=== PATIENT | male | born 1955 | race Caucasian/White ===

== ENCOUNTER 2017-06-03 18:38 | Inpatient (IN) | payer MEDICAID ==
[~2017-06-03] VITALS: Ht 168.9 cm; Wt 83.0 kg
[~2017-06-03 18:38] MED LIST: ACHD5005 PO; ASP81TEC PO; ATOR10TA66 PO; CLPD75T PO; ENAL2.5T PO; ENAL5TAB PO; FISH1CAP15 PO; IBP800T PO; METO-333 PO; OMEG1CAP51 PO; PNT40TEC PO; POLY119P PO; TICA90TA PO
--- OUTSIDE RECORDS SUMMARY | 2017-06-03 18:44 | XMS REPORT | Continuity of Care Document ---
Author Author [facility] Organization [facility] Address Unknown Phone Unavailable Allergies Active Description Code Type Severity Reaction Onset Reported/Identified Relationship to Patient Clinical Status Yes No Known Drug Allergies [id number] Drug Allergy Unknown N/ A 01/22/2011 Medications Problems Date Dx Coded Attending Type Code Diagnosis Diagnosed By 01/22/2011 Ot 816.01 FX MID/PRX PHAL, HAND-CL 01/22/2011 Ot 959.5 FINGER INJURY NOS 01/22/2011 Ot E000.8 OTHER EXTERNAL CAUSE STATUS 01/22/2011 Ot E849.0 ACCIDENT IN HOME 01/22/2011 Ot E918 CAUGHT BETWEEN OBJECTS 05/07/2012 Ot 305.00 ALCOHOL ABUSE-UNSPEC 05/07/2012 Ot 305.1 TOBACCO USE DISORDER 05/07/2012 Ot 410.71 AC MYOCARDIAL INFARCT,SUBENDO INFARCT,IN 05/07/2012 Ot 414.01 CORONARY ATHEROSCLEROSIS OF [place] CORON 05/07/2012 Ot 420.90 ACUTE PERICARDITIS NOS 05/07/2012 Ot 428.0 CONGESTIVE HEART FAILURE NOS 05/07/2012 Ot 428.21 ACUTE SYSTOLIC HEART FAILURE 05/07/2012 Ot 518.82 OTHER PULMONARY INSUFFICIENCY, NEC 05/07/2012 Ot 593.9 RENAL URETERAL DIS NOS 05/07/2012 Ot 789.06 ABDOMINAL PAIN, EPIGASTRIC 05/07/2012 Ot 790.5 ABN SERUM ENZY LEVEL NEC 05/07/2012 Ot V17.49 FAMILY HISTORY OF OTHER CARDIOVASCULAR D 09/18/2012 Ot 564.00 UNSPEC CONSTIPATION 09/18/2012 Ot 789.00 ABDOMINAL PAIN, UNSPECIFIED SITE 07/29/2014 MEAGAN JACKSON MD Ot 272.4 07/29/2014 MEAGAN JACKSON MD Ot 397.0 07/29/2014 MEAGAN JACKSON MD Ot 401.9 07/29/2014 MEAGAN JACKSON MD Ot 414.00 07/29/2014 MEAGAN JACKSON MD Ot 424.0 07/29/2014 MEAGAN JACKSON MD Ot 428.0 07/29/2014 MEAGAN JACKSON MD Ot 429.3 08/20/2014 MEAGAN JACKSON MD Ot 272.4 08/20/2014 MEAGAN JACKSON MD Ot 397.0 08/20/2014 MEAGAN JCAKSON MD Ot 401.9 08/20/2014 MEAGAN JACKSON MD Ot 414.00 08/20/2014 MEAGAN JACKSON MD Ot 424.0 08/20/2014 MEAGAN JACKSON MD Ot 428.0 08/20/2014 MEAGAN JACKSON MD Ot 429.3 02/02/2015 JENNIE LOPEZ Ot 272.4 02/02/2015 JENNIE LOPEZ Ot 401.9 02/02/2015 JENNIE LOPEZ Ot 414.00 02/02/2015 JENNIE LOPEZ Ot 428.0 02/02/2015 JENNIE LOPEZ Ot 786.50 09/02/2015 MEAGAN JACKSON MD Ot B19.20 UNSPECIFIED VIRAL HEPATITIS C WITHOUT HE 09/02/2015 MEAGAN JACKSON MD Ot E78.5 HYPERLIPIDEMIA, UNSPECIFIED 09/02/2015 MEAGAN JACKSON MD Ot F17.290 NICOTINE DEPENDENCE, OTHER TOBACCO PRODU 09/02/2015 MEAGAN JACKSON MD Ot I10 ESSENTIAL (PRIMARY) HYPERTENSION 09/02/2015 MEAGAN JACKSON MD Ot I25.10 ATHSCL HEART DISEASE OF [place] CORONARY 09/02/2015 MEAGAN JACKSON MD Ot I25.2 OLD MYOCARDIAL INFARCTION 09/02/2015 MEAGAN JACKSON MD Ot I27.2 OTHER SECONDARY PULMONARY HYPERTENSION 09/02/2015 MEAGAN JACKSON MD Ot I50.9 HEART FAILURE, UNSPECIFIED 09/02/2015 MEAGAN JACKSON MD Ot R94.39 ABNORMAL RESULT OF OTHER CARDIOVASCULAR 09/02/2015 MEAGAN JACKSON MD Ot Z79.899 OTHER SENIOR CARE (CURRENT) DRUG THERAPY 09/02/2015 MEAGAN JACKSON MD Ot Z95.5 PRESENCE OF CORONARY ANGIOPLASTY IMPLANT 09/03/2015 MEAGAN JACKSON MD Ot E78.2 09/03/2015 MEAGAN JACKSON MD Ot I10 09/03/2015 MEAGAN JACKSON MD Ot I25.10 09/03/2015 MEAGAN JACKSON MD Ot I50.22 09/03/2015 MEAGAN JACKSON MD Ot R07.89 09/08/2015 MEAGAN JACKSON MD Ot B19.20 09/08/2015 MEAGAN JACKSON MD Ot E78.5 09/08/2015 MEAGAN JACKSON MD Ot F17.290 09/08/2015 MEAGAN JACKSON MD Ot I10 09/08/2015 MEAGAN JACKSON MD Ot I25.10 09/08/2015 MEAGAN JACKSON MD Ot I25.2 09/08/2015 MEAGAN JACKSON MD Ot I27.2 09/08/2015 MEAGAN JACKSON MD Ot I50.9 09/08/2015 MEAGAN JACKSON MD Ot R94.39 09/08/2015 MEAGAN JACKSON MD Ot Z79.899 09/08/2015 MEAGAN JACKSON MD Ot Z95.5 09/28/2015 Ot B19.20 09/28/2015 Ot I25.10 10/08/2015 Ot B19.20 UNSPECIFIED VIRAL HEPATITIS C WITHOUT HE 10/08/2015 Ot I25.10 ATHSCL HEART DISEASE OF [place] CORONARY 10/14/2015 MAYNOR MATHIS MD Ot J44.9 CHRONIC OBSTRUCTIVE PULMONARY DISEASE, U 10/26/2015 MAYNOR MATHIS MD Ot J44.9 CHRONIC OBSTRUCTIVE PULMONARY DISEASE, U 04/06/2016 JENNIE LOPEZ Ot E78.5 HYPERLIPIDEMIA, UNSPECIFIED 04/07/2016 Ot 414.00 CORON ATHEROSCLER NOS TYPE VESSEL, NATIV 04/07/2016 Ot 423.9 PERICARDIAL DISEASE NOS 04/07/2016 Ot 070.70 UNSPECIFIED VIRAL HEPATITIS C WITHOUT HE 04/07/2016 Ot 790.5 ABN SERUM ENZY LEVEL NEC 04/07/2016 MEAGAN JACKSON MD Ot 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 TRICUSPID VALVE DISEASE 04/07/2016 MEAGAN JACKSON MD Ot 401.9 HYPERTENSION NOS 04/07/2016 MEAGAN JACKSON MD Ot 414.00 CORON ATHEROSCLER NOS TYPE VESSEL, NATIV 04/07/2016 MEAGAN JACKSON MD Ot 424.0 MITRAL VALVE DISORDER 04/07/2016 MEAGAN JACKSON MD Ot 428.0 CONGESTIVE HEART FAILURE NOS 04/07/2016 MEAGAN JACKSON MD Ot 429.3 CARDIOMEGALY 04/07/2016 MEAGAN JACKSON MD Ot 401.9 HYPERTENSION NOS 04/07/2016 MEAGAN JACKSON MD Ot 414.01 CORONARY ATHEROSCLEROSIS OF [place] CORON 04/07/2016 MEAGAN JACKSON MD Ot 428.0 CONGESTIVE HEART FAILURE NOS 04/07/2016 LETHA LORENZO MD Ot 070.54 CHRONIC HEPATITIS C W/O HEPATIC COMA 04/07/2016 LETHA LORENZO MD, Ot V58.69 OTH MED,LT,CURRENT USE 04/07/2016 KELSEY AMBROSE WELDING MACHINE OPERATOR ELECTROSLAG Ot 272.4 HYPERLIPIDEMIA NEC/NOS 04/07/2016 KELSEY AMBROSE WELDING MACHINE OPERATOR ELECTROSLAG Ot 401.9 HYPERTENSION NOS 04/07/2016 KELSEY AMBROSE WELDING MACHINE OPERATOR ELECTROSLAG Ot 414.00 CORON ATHEROSCLER NOS TYPE VESSEL, NATIV 04/07/2016 LETHA LORENZO MD Ot 070.54 CHRONIC HEPATITIS C W/O HEPATIC COMA 04/07/2016 LETHA LORENZO MD Ot V58.69 OTH MED,LT,CURRENT USE 04/07/2016 LETHA LORENZO MD Ot 070.54 CHRONIC HEPATITIS C W/O HEPATIC COMA 04/07/2016 LETHA LORENZO MD Ot V58.69 OTH MED,LT,CURRENT USE 04/07/2016 LETHA LORENZO MD Ot 070.70 UNSPECIFIED VIRAL HEPATITIS C WITHOUT HE 04/07/2016 LETHA LORENZO MD Ot 070.54 CHRONIC HEPATITIS C W/O HEPATIC COMA 04/07/2016 LETHA LORENZO MD Ot V58.69 OTH MED,LT,CURRENT USE 04/07/2016 LETHA LORENZO MD Ot 070.54 CHRONIC HEPATITIS C W/O HEPATIC COMA 04/07/2016 LETHA LORENZO MD, Ot V58.69 OTH MED,LT,CURRENT USE 04/07/2016 LETHA LORENZO MD Ot V58.83 ENCOUNTER FOR THERAPEUTIC DRUG MONITORIN 04/07/2016 LETHA LORENZO MD Ot 070.54 CHRONIC HEPATITIS C W/O HEPATIC COMA 04/07/2016 LETHA LORENZO MD Ot V58.69 OTH MED,LT,CURRENT USE 04/07/2016 LETHA LORENZO MD Ot V58.83 ENCOUNTER FOR THERAPEUTIC DRUG MONITORIN 04/07/2016 LETHA LORENZO MD Ot 070.54 CHRONIC HEPATITIS C W/O HEPATIC COMA 04/07/2016 LETHA LORENZO MD Ot V58.69 OTH MED,LT,CURRENT USE 04/07/2016 LETHA LORENZO MD Ot V58.83 ENCOUNTER FOR THERAPEUTIC DRUG MONITORIN 04/07/2016 MEAGAN JACKSON MD Ot 272.4 HYPERLIPIDEMIA NEC/NOS 04/07/2016 MEAGAN JACKSON MD Ot 414.00 CORON ATHEROSCLER NOS TYPE VESSEL, NATIV 04/07/2016 MEAGAN JACKSON MD Ot 272.4 HYPERLIPIDEMIA NEC/NOS 04/07/2016 MEAGAN JACKSON MD Ot 303.90 ALCOH DEP NEC/NOS-UNSPEC 04/07/2016 MEAGAN JACKSON MD Ot 401.9 HYPERTENSION NOS 04/07/2016 MEAGAN JACKSON MD Ot 414.00 CORON ATHEROSCLER NOS TYPE VESSEL, NATIV 04/07/2016 LETHA LORENZO MD Ot 070.54 CHRONIC HEPATITIS C W/O HEPATIC COMA 04/07/2016 LETHA LORENZO MD Ot V58.69 OTH MED,LT,CURRENT USE 04/07/2016 LETHA LORENZO MD Ot V58.83 ENCOUNTER FOR THERAPEUTIC DRUG MONITORIN 04/07/2016 MEAGAN JACKSON MD Ot 272.4 HYPERLIPIDEMIA NEC/NOS 04/07/2016 MEAGAN JACKSON MD Ot 397.0 TRICUSPID VALVE DISEASE 04/07/2016 MEAGAN JACKSON MD Ot 401.9 HYPERTENSION NOS 04/07/2016 MEAGAN JACKSON MD Ot 414.00 CORON ATHEROSCLER NOS TYPE VESSEL, NATIV 04/07/2016 MEAGAN JACKSON MD Ot 424.0 MITRAL VALVE DISORDER 04/07/2016 MEAGAN JACKSON MD Ot 428.0 CONGESTIVE HEART FAILURE NOS 04/07/2016 MEAGAN JACKSON MD Ot 429.3 CARDIOMEGALY 04/07/2016 JENNIE LOPEZ Ot 272.4 HYPERLIPIDEMIA NEC/NOS 04/07/2016 JENNIE LOPEZ Ot 401.9 HYPERTENSION NOS 04/07/2016 JENNIE LOPEZ Ot 414.00 CORON ATHEROSCLER NOS TYPE VESSEL, NATIV 04/07/2016 JENNIE LOPEZ Ot 428.0 CONGESTIVE HEART FAILURE NOS 04/07/2016 JENNIE LOPEZ Ot 786.50 CHEST PAIN NOS 04/07/2016 MEAGAN JACKSON MD Ot E78.2 MIXED HYPERLIPIDEMIA 04/07/2016 MEAGAN JACKSON MD Ot I10 ESSENTIAL (PRIMARY) HYPERTENSION 04/07/2016 MEAGAN JACKSON MD Ot I25.10 ATHSCL HEART DISEASE OF [place] CORONARY 04/07/2016 MEAGAN JACKSON MD Ot I50.22 CHRONIC SYSTOLIC (CONGESTIVE) HEART FAIL 04/07/2016 MEAGAN JACKSON MD Ot R07.89 OTHER CHEST PAIN 04/07/2016 MEAGAN JACKSON MD Ot E78.2 MIXED HYPERLIPIDEMIA 04/07/2016 MEAGAN JACKSON MD Ot I10 ESSENTIAL (PRIMARY) HYPERTENSION 04/07/2016 MEAGAN JACKSON MD Ot I25.10 ATHSCL HEART DISEASE OF [place] CORONARY 04/07/2016 MEAGAN JACKSON MD Ot I50.22 CHRONIC SYSTOLIC (CONGESTIVE) HEART FAIL 04/07/2016 MEAGAN JACKSON MD Ot R07.89 OTHER CHEST PAIN 04/07/2016 DEL WILSON, MAYNOR Medina Ot J44.9 CHRONIC OBSTRUCTIVE PULMONARY DISEASE, U 04/07/2016 Ot B19.20 UNSPECIFIED VIRAL HEPATITIS C WITHOUT HE 04/07/2016 Ot I25.10 ATHSCL HEART DISEASE OF [place] CORONARY 04/07/2016 JENNIE LOPEZ Ot E78.5 HYPERLIPIDEMIA, UNSPECIFIED 04/17/2016 JENNIE LOPEZ Ot E78.5 HYPERLIPIDEMIA, UNSPECIFIED Procedures Code Description Performed By Performed On 00.40 05/05/2012 00.45 05/05/2012 00.66 05/05/2012 36.06 05/05/2012 37.22 05/05/2012 88.53 05/05/2012 88.56 05/05/2012 Results Encounters ACCT No. Visit Date/Time Discharge Status Pt. Type Provider Facility Loc./Unit Complaint [id number] 05/22/2017 11:27:00 2016 23:59:59 CLS Preadmit MEAGAN JACKSON MD [facility] CARD I25.10 CAD [id number] 05/22/2017 11:25:00 2016 23:59:59 CLS Preadmit MEAGAN JACKSON MD [facility] CARD I25.10 CAD [id number] 04/05/2016 14:58:00 2015 23:59:59 CLS Outpatient JENNIE LOPEZ [facility] LAB HYPERLIPIDEMIA [id number] 10/13/2015 14:45:00 2015 23:59:59 CLS Outpatient MAYNOR MATHIS MD [facility] RT SOA COPD [id number] 09/01/2015 13:47:00 2015 23:59:59 CLS Outpatient MEAGAN JACKSON MD [facility] CATH ABNORMAL STRESS, HTN,HLP [id number] 08/23/2015 07:31:00 2015 23:59:59 CLS Outpatient MEAGAN JACKSON MD [facility] CARD CAD,CHF,CP,HTN,HLP [id number] 08/19/2015 09:24:00 2015 23:59:59 CLS Outpatient MEAGAN JACKSON MD [facility] CARD CAD,CHF,CP,HTN,HLP [id number] 01/20/2015 11:51:00 2014 23:59:59 CLS Outpatient JENNIE LOPEZ [facility] LAB CAD,CHF,CHEST PAIN SYNDROME, HTN,HYPERLIPIDEMIA [id number] 07/20/2014 13:03:00 2014 23:59:59 CLS Outpatient MEAGAN JACKSON MD [facility] CARD CAD,CHF,HTN,HLP [id number] 10/20/2013 15:10:00 2013 23:59:59 CLS Outpatient LETHA LORENZO MD [facility] LAB CHRONIC HEPATITIS C W/O MENTION SENIOR CARE MEDICATI [id number] 08/27/2013 14:16:00 2013 23:59:59 CLS Outpatient MEAGAN JACKSON MD [facility] LAB CAD,HTN,HYPERLIPADEMA [id number] 05/14/2013 13:50:00 2012 23:59:59 CLS Outpatient MEAGAN JACKSON MD [facility] LAB CAD,HLP [id number] 04/24/2013 15:31:00 2012 23:59:59 CLS Outpatient LETHA LORENZO MD [facility] CHRONIC HEP C,SENIOR CARE MED USE [id number] 04/08/2013 11:35:00 2012 23:59:59 CLS Outpatient MEAGAN JACKSON MD [facility] RAD CAD,CHF,HTN [id number] 03/26/2013 07:54:00 2012 23:59:59 CLS Outpatient MEAGAN JACKSON MD [facility] CARD CAD,CHF,HTN [id number] 03/20/2013 15:10:00 2012 23:59:59 CLS Outpatient LETHA LORENZO MD [facility] CHRONIC HEP C,SENIOR CARE MED USE [id number] 02/18/2013 09:22:00 2012 23:59:59 CLS Outpatient LETHA LORENZO MD [facility] CHRONIC HEPATITIS C WITHOUT MENTION ON HEP COMA [id number] 01/20/2013 10:21:00 2012 23:59:59 CLS Outpatient LETHA LORENZO MD [facility] LAB CHRONIC HEP C,VERTICAL BORER MED USE [id number] 12/23/2012 14:59:00 2012 23:59:59 CLS Outpatient LETHA LORENZO MD [facility] CHRONIC HEP C WITHOUT MENTION OF COMA [id number] 12/09/2012 16:03:00 2012 23:59:59 CLS Outpatient LETHA LORENZO MD [facility] CHRONIC HEPATATIS WITHOUT MENTION OF HEPATIC COMA [id number] 11/27/2012 13:40:00 2012 23:59:59 CLS Outpatient LETHA LORENZO MD [facility] LAB OTHER VIRAL HEP C UNSPECIFIED [id number] 11/11/2012 10:48:00 2012 23:59:59 CLS Outpatient KELSEY AMBROSE [facility] LAB CAD,HYPERTENSION, HYPERLIPIDEMIA [id number] 11/07/2012 14:39:00 2012 23:59:59 CLS Outpatient LETHA LORENZO MD [facility] LAB HEP C, SENIOR CARE USE OF MEDS [id number] 06/03/2017 18:39:00 ACT Emergency CAMILLE WILSON, HAVEN Timmons [facility] ER ABD PAIN/CONSTIPATION/NAUSEA [id number] 09/27/2015 10:38:00 Document Registration [id number] 09/18/2012 15:08:00 Document Registration [id number] 06/10/2012 13:19:00 Document Registration [id number] 05/20/2012 10:48:00 Document Registration [id number] 05/05/2012 05:32:00 Document Registration [id number] 01/22/2011 20:06:00 Document Registration
[2017-06-03] MEDS ORDERED: ROPI2TAB4 PO (19:06)
[2017-06-03] MEDS ORDERED: PANT40TA3 PO (19:06)
[2017-06-03] MEDS ORDERED: LACTATED RINGERS 1,000 ML IV ONE (19:43)
[2017-06-03] MEDS ORDERED: DIATRIZOATE MEGLUM/SODIUM 37% 120 ML (GASTROGRAFIN) PO ONE (19:45)
[2017-06-03] MEDS ORDERED: fentaNYL INJECTION 100 MCG/2 ML AMP IVP ONE (19:45)
[2017-06-03] MEDS ORDERED: ONDANSETRON 4 MG/2 ML (SDV) Z0FRAN IVP ONE (19:45)
--- NOTE | 2017-06-03 19:47 | ED GI ---
General Chief Complaint: Abdominal/GI Problems Stated Complaint: ABD PAIN/CONSTIPATION/NAUSEA Nursing Triage Note: CONSTIPATION X1 WEEK, ABD PAIN X3 DAYS Sepsis Screen: No Definite Risk Source of Information: Patient Exam Limitations: No Limitations History of Present Illness Time Seen By Provider: 19:39 Initial Comments Patient presents to ER by private conveyance with a chief complaint that he is having abdominal pain for the last 4 days. He is not seeing anybody for this. 2 days ago started getting progressively worse until tonight he cannot stand. He is also been constipated for this time is used laxatives, 2 enemas, prune juice and drink lots of fluids and feels very nauseated but has not been able to throw up or have a bowel movement. He's never had this before. He has no history of surgeries on his abdomen. He does have a history of heart problems for which she takes his heart medications. He is having no problems urinating. He's had no fevers or chills nor rash. No shortness of breath or chest pain. No recent trauma. Patient is a history of hepatitis C but he was treated with PEG interferon proximal 6 years ago. Patient had a colonoscopy 3 years ago that was negative. He says he's had some issues with off-again on-again constipation and low abdominal pain for the past year. Allergies and Home Medications Allergies Coded Allergies: No Known Drug Allergies (Unverified , 01/22/11) Home Medications Aspirin 81 Mg Tabec, 81 MG PO DAILY, (Reported) Atorvastatin Calcium 10 Mg Tablet, 10 MG PO HS, #30 Ref 4 Prescribed by: MEAGAN JACKSON on 09/02/15 0740 Enalapril Maleate 5 Mg Tablet, 5 MG PO BID, (Reported) Fish Oil/Dha/Epa 1 Each Capsule, 1 CAP PO BID, (Reported) Metoprolol Tartrate 25 Mg Tablet, 25 MG PO BID, (Reported) Pantoprazole Sodium 40 Mg Tablet., (Reported) Ropinirole HCl 2 Mg Tablet, (Reported) Review of Systems Constitutional: No chills, No fever, malaise EENTM: No Blurred Vision, No Double Vision Respiratory: Denies Cough, Denies Shortness of Air Cardiovascular: Denies Chest Pain, Denies Lightheadedness Gastrointestinal: Abdomen Distended, Abdominal Pain (all over), Constipated, Denies Diarrhea, Denies Difficulty Swallowing, Nausea, Denies Poor Appetite, Denies Poor Fluid Intake, Denies Vomiting Genitourinary: Denies Burning, Denies Discharge Musculoskeletal: No back pain, No joint pain Skin: No pruritus, No rash Psychiatric/Neurological: Denies Headache, Denies Numbness, Denies Paresthesia Past Krocfzy-Nxwmcf-Ar[place]bor Hx Patient Social History Alcohol Use: Occasionally Uses Alcohol Beverage of Choice: Beer Recreational Drug Use: Yes Smoking Status: Current Someday Smoker Type Used: Cigars Recent Foreign Travel: No Contact w/Someone Who Travel: No Recent Infectious Disease Expo: No Recent Hopitalizations: No Immunizations Up To Date Tetanus Booster (TDap): Unknown Seasonal Allergies Seasonal Allergies: No Surgeries History of Surgeries: Yes Surgeries: Coronary Stent Respiratory History of Respiratory Disorde: No Cardiovascular History of Cardiac Disorders: Yes (STENT) Cardiac Disorders: High Cholesterol, Hypertension Neurological History of Neurological Disord: No Reproductive System Hx Reproductive Disorders: No Genitourinary History of Genitourinary Disor: No Gastrointestinal History of Gastrointestinal Di: No Musculoskeletal History of Musculoskeletal Dis: No Endocrine History of Endocrine Disorders: No HEENT History of HEENT Disorders: No Cancer History of Cancer: No Psychosocial History of Psychiatric Problem: No Integumentary History of Skin or Integumenta: No Blood Transfusions History of Blood Disorders: No Family Medical History Significant Family History: Heart Disease, Hypertension Physical Exam Vital Signs VS - Last 72 Hours, by Label 06/03/17 06/03/17 19:00 20:06 Temp 97.9 97.9 Pulse 94 Resp 16 B/P (MAP) 163/105 (124) Pulse Ox 95 O2 Delivery Room Air Capillary Refill : Less Than 3 Seconds General Appearance: WD/WN, moderate distress HEENT: PERRL/EOMI, pharynx normal Neck: non-tender, supple, normal inspection Respiratory: chest non-tender, lungs clear, normal breath sounds Cardiovascular: normal peripheral pulses, regular rate, rhythm, no edema Peripheral Pulses: 2+ Dorsalis Pedis (R), 2+ Left Dors-Pedis (L), 2+ Radial Pulses (R), 2+ Radial Pulses (L) Gastrointestinal: no organomegaly, no pulsatile mass, abnormal bowel sounds ( hypoactive), distended, guarding, tenderness (all 4 quadrants), No hepatomegaly , No spleenomegaly Extremities: normal inspection, no pedal edema, normal capillary refill Neurologic/Psychiatric: alert, normal mood/affect, oriented x 3 Skin: normal color, warm/dry Focused Exam Evaluation Lactate Level Laboratory Tests 06/03/17 20:00: Lactic Acid Level 1.98 Lactic Acid Level Laboratory Tests Test 06/03/17 20:00 Lactic Acid Level 1.98 MMOL/L (0.50-2.00) Progress/Results/Core Measures Results/Orders Lab Results Laboratory Tests Test 06/03/17 19:55 06/03/17 20:00 Range/Units Urine Color YELLOW Urine Clarity CLEAR Urine pH 5 5-9 Urine Specific [place] 1.025 H 1.016-1.022 Urine Protein 2+ H NEGATIVE Urine Glucose (UA) NEGATIVE NEGATIVE Urine Ketones 1+ H NEGATIVE Urine Nitrite NEGATIVE NEGATIVE Urine Bilirubin NEGATIVE NEGATIVE Urine Urobilinogen NORMAL NORMAL MG/DL Urine Leukocyte Esterase 1+ H NEGATIVE Urine RBC (Auto) NEGATIVE NEGATIVE Urine RBC NONE /HPF Urine WBC RARE /HPF Urine Crystals NONE /LPF Urine Bacteria NEGATIVE /HPF Urine Casts NONE /LPF Urine Mucus LARGE H /LPF Urine Culture Indicated NO Urine Opiates Screen NEGATIVE NEGATIVE Urine Oxycodone Screen NEGATIVE NEGATIVE Urine Methadone Screen NEGATIVE NEGATIVE Urine Propoxyphene Screen NEGATIVE NEGATIVE Urine Barbiturates Screen NEGATIVE NEGATIVE Ur Tricyclic Antidepressants Screen NEGATIVE NEGATIVE Urine Phencyclidine Screen NEGATIVE NEGATIVE Urine Amphetamines Screen NEGATIVE NEGATIVE Urine Methamphetamines Screen NEGATIVE NEGATIVE Urine Benzodiazepines Screen NEGATIVE NEGATIVE Urine Cocaine Screen NEGATIVE NEGATIVE Urine Cannabinoids Screen POSITIVE H NEGATIVE White Blood Count 14.9 H 4.3-11.0 10^3/uL Red Blood Count 4.99 4.35-5.85 10^6/uL Hemoglobin 15.1 13.3-17.7 G/DL Hematocrit 44 40-54 % Mean Corpuscular Volume 88 80-99 FL Mean Corpuscular Hemoglobin 30 25-34 PG Mean Corpuscular Hemoglobin Concent 34 32-36 G/DL Red Cell Distribution Width 13.1 10.0-14.5 % Platelet Count 326 130-400 10^3/uL Mean Platelet Volume 11.4 H 7.4-10.4 FL Neutrophils (%) (Auto) 81 H 42-75 % Lymphocytes (%) (Auto) 13 12-44 % Monocytes (%) (Auto) 5 0-12 % Eosinophils (%) (Auto) 0 0-10 % Basophils (%) (Auto) 0 0-10 % Neutrophils # (Auto) 12.0 H 1.8-7.8 X 10^3 Lymphocytes # (Auto) 2.0 1.0-4.0 X 10^3 Monocytes # (Auto) 0.8 0.0-1.0 X 10^3 Eosinophils # (Auto) 0.1 0.0-0.3 10^3/uL Basophils # (Auto) 0.1 0.0-0.1 10^3/uL Neutrophils % (Manual) 82 % Lymphocytes % (Manual) 10 % Monocytes % (Manual) 4 % Eosinophils % (Manual) 1 % Basophils % (Manual) 0 % Band Neutrophils 3 % Blood Morphology Comment NORMAL Sodium Level 137 135-145 MMOL/L Potassium Level 3.1 L 3.6-5.0 MMOL/L Chloride Level 102 98-107 MMOL/L Carbon Dioxide Level 21 21-32 MMOL/L Anion Gap 14 5-14 MMOL/L Blood Urea Nitrogen 11 7-18 MG/DL Creatinine 0.81 0.60-1.30 MG/DL Estimat Glomerular Filtration Rate > 60 BUN/Creatinine Ratio 14 Glucose Level 119 H 70-105 MG/DL Lactic Acid Level 1.98 0.50-2.00 MMOL/L Calcium Level 8.8 8.5-10.1 MG/DL Magnesium Level 2.2 1.8-2.4 MG/DL Total Bilirubin 0.6 0.1-1.0 MG/DL Aspartate Amino Transf (AST/SGOT) 25 5-34 U/L Alanine Aminotransferase (ALT/SGPT) 32 0-55 U/L Alkaline Phosphatase 93 40-136 U/L Total Protein 8.9 H 6.4-8.2 GM/DL Albumin 4.1 3.2-4.5 GM/DL Lipase 11 8-78 U/L Serum Alcohol < 10 <10 MG/DL My Orders Orders - [facility] OBRI[facility] Ct Abdomen/Pelvis W (06/03/17 19:43) Saline Lock/Iv-Start (06/03/17 19:43) Alcohol (06/03/17 19:43) Cbc With Automated Diff (06/03/17 19:43) Comprehensive Metabolic Panel (06/03/17 19:43) Drug Screen Stat (Urine) (06/03/17 19:43) Lactic Acid Analyzer (06/03/17 19:43) Lipase (06/03/17 19:43) Magnesium (06/03/17 19:43) Ua Culture If Indicated (06/03/17 19:43) Saline Lock/Iv-Start (06/03/17 19:43) Lactated Ringers (Lr 1000 Ml Iv Solution (06/03/17 19:43) Diatrizoate Meglum/Sodium 37% (Gastrogra (06/03/17 19:45) Fentanyl Injection (Sublimaze Injection (06/03/17 19:45) Ondansetron Injection (Zofran Injectio (06/03/17 19:45) Iohexol Injection (Omnipaque 350 Mg/Ml 1 (06/03/17 20:30) Ns (Ivpb) (Sodium Chloride 0.9% Ivpb Bag (06/03/17 20:30) Diatrizoate Meglum/Sodium 37% (Gastrogra (06/03/17 20:30) Manual Differential (06/03/17 20:00) Potassium Cl 10meq/50ml Ivpb (Kcl 10 Meq (06/03/17 21:00) Fentanyl Injection (Sublimaze Injection (06/04/17 01:15) Fentanyl Injection (Sublimaze Injection (06/04/17 01:13) Medications Given in ED Current Medications Medications Dose Ordered Sig/Jake Route Start Time Stop Time Status Last Admin Dose Admin Diatrizoate Meglum/ Diatrizoate Sod 120 ml ONCE ONCE NG 06/03/17 20:30 06/03/17 20:31 DC 06/03/17 22:42 20 ML Diatrizoate Meglum/ Diatrizoate Sod 120 ml ONCE ONCE PO 06/03/17 19:45 06/03/17 19:47 DC 06/03/17 20:14 120 ML Fentanyl Citrate 50 mcg ONCE ONCE IVP 06/03/17 19:45 06/03/17 19:47 DC 06/03/17 20:06 50 MCG Fentanyl Citrate 50 mcg ONCE ONCE IVP 06/04/17 01:15 06/04/17 01:16 DC 06/04/17 01:16 50 MCG Iohexol 100 ml ONCE ONCE IV 06/03/17 20:30 12 20:31 DC 06/03/17 22:41 100 ML Lactated Ringer's 1,000 ml @ 0 mls/hr Q0M ONCE IV 06/03/17 19:43 06/03/17 19:47 DC 06/03/17 20:06 0 MLS/HR Ondansetron HCl 4 mg ONCE ONCE IVP 06/03/17 19:45 06/03/17 19:47 DC 06/03/17 20:06 4 MG Potassium Chloride 50 ml @ 50 mls/hr ONCE ONCE IV 06/03/17 21:00 06/03/17 21:59 DC 06/03/17 21:11 50 MLS/HR Sodium Chloride 100 ml ONCE ONCE IV 06/03/17 20:30 06/03/17 20:31 DC 06/03/17 22:41 80 ML Vital Signs/I&O Vital Sign - Last 12Hours 06/03/17 06/03/17 19:00 20:06 Temp 97.9 97.9 Pulse 94 Resp 16 B/P (MAP) 163/105 (124) Pulse Ox 95 O2 Delivery Room Air Intake and Output 06/04/17 00:00 Intake Total 1050 ml Balance 1050 ml Blood Pressure Mean: 124 Progress Note : Time: 20:07 Progress Note Concern for ileus versus obstruction. We'll go ahead and get a contrasted study of his abdomen and pelvis with oral Gastrografin which may be therapeutic as well as diagnostic. We'll give him pain and nausea medication and check blood and urine. Diagnostic Imaging Diagonstic Imaging: CT Plain Films/CT/US/NM/MRI: abdomen, pelvis (with oral and IV contrast) Comments Large bowel obstruction due to annular constricting lesion of the proximal descending colon. Differential is neoplasm, ischemic or inflammatory structure. Reviewed: Reviewed by Me Departure Communication (Admissions) Time/Spoke to Admitting Phy: 02:[address] Ramirez discussed case lab imaging and findings and she is okay with admitting the patient. Time/Spoke to Consulting Phy: 02:10 Communication/Consulting Dr. Ahmadi: Discussed case lab imaging and findings and he is okay with bring the patient nothing by mouth on IV fluids and seeing the patient in the morning. Impression Impression: Primary Impression: Bowel obstruction Qualified Codes: K56.691 - Other complete intestinal obstruction Additional Impression: Lesion of colon Disposition: ADMITTED INPATIENT Condition: Stable Admissions Decision to Admit Reason: Admit from ER (General) Decision to Admit/Date: Jun 04, 2017 Time/Decision to Admit Time: 02:14 Departure-Patient Inst. Referrals: MAYNOR MATHIS MD (PCP/Family) Primary Care Physician Copy Copies To 1: MAYNOR MATHIS MD Copies To 2: NICOLA AHMADI MD, TITUS J Jun 03, 2017 19:47
[2017-06-03 20:16] LABS: BILIRUBIN,URINE NEGATIVE (NEGATIVE); KETONES,URINE 1+ (NEGATIVE); LEUKOCYTE ESTERASE ,URINE 1+ (NEGATIVE); NITRITE,URINE NEGATIVE (NEGATIVE); PH,URINE 5 (5-9); PROTEIN,URINE 2+ (NEGATIVE); UROBILINOGEN,URINE NORMAL (NORMAL)
[2017-06-03 20:19] LABS: BASOPHILS # (AUTO) 0.1 10^3/uL (0.0-0.1); BASOPHILS % (AUTO) 0 % (0-10); EOSINOPHILS # (AUTO) 0.1 10^3/uL (0.0-0.3); EOSINOPHILS % (AUTO) 0 % (0-10); LYMPHOCYTES % (AUTO) 13 % (12-44); MEAN CORPUSCULAR HEMOGLOBIN 30 PG (25-34); MEAN CORPUSCULAR HGB CONC 34 G/DL (32-36); MEAN CORPUSCULAR VOLUME 88 FL (80-99); MEAN PLATELET VOLUME 11.4 FL (7.4-10.4); MONOCYTES # (AUTO) 0.8 X 10^3 (0.0-1.0); MONOCYTES % (AUTO) 5 % (0-12); NEUTROPHILS % (AUTO) 81 % (42-75); PLATELET COUNT 326 10^3/uL (130-400); RED BLOOD COUNT 4.99 10^6/uL (4.35-5.85); RED CELL DISTRIBUTION WIDTH 13.1 % (10.0-14.5); WHITE BLOOD COUNT 14.9 10^3/uL (4.3-11.0)
[2017-06-03] MEDS ORDERED: NS 100 ML (IVPB) BAG IV ONE (20:30)
[2017-06-03] MEDS ORDERED: DIATRIZOATE MEGLUM/SODIUM 37% 120 ML (GASTROGRAFIN) NG ONE (20:30)
[2017-06-03] MEDS ORDERED: IOHEXOL 350 MG/ML 100 ML (OMNIPAQUE 350) VIAL IV ONE (20:30)
[2017-06-03 20:32] LABS: WBC,URINE RARE /HPF
[2017-06-03 20:36] LABS: ALANINE AMINOTRANSFERASE 32 U/L (0-55); ALBUMIN 4.1 GM/DL (3.2-4.5); ALCOHOL < 10 MG/DL (<10); ANION GAP 14 MMOL/L (5-14); ASPARTATE AMINO TRANSFERASE 25 U/L (5-34); BILIRUBIN,TOTAL 0.6 MG/DL (0.1-1.0); BLOOD UREA NITROGEN 11 MG/DL (7-18); BUN/CREATININE RATIO 14; CALCIUM 8.8 MG/DL (8.5-10.1); CARBON DIOXIDE 21 MMOL/L (21-32); CHLORIDE 102 MMOL/L (98-107); CREATININE SERUM 0.81 MG/DL (0.60-1.30); GFR ESTIMATED > 60; GLUCOSE 119 MG/DL (70-105); LIPASE 11 U/L (8-78); MAGNESIUM 2.2 MG/DL (1.8-2.4); POTASSIUM 3.1 MMOL/L (3.6-5.0); SODIUM 137 MMOL/L (135-145); TOTAL PROTEIN 8.9 GM/DL (6.4-8.2)
[2017-06-03 20:38] LABS: BAND NEUTROPHILS 3 %; BASOPHILS % (MANUAL) 0 %; EOSINOPHILS % (MANUAL) 1 %; LYMPHOCYTES % (MANUAL) 10 %; NEUTROPHILS % (MANUAL) 82 %
[2017-06-03] MEDS ORDERED: POTASSIUM CL 10MEQ/50ML IVPB 50 ML IV ONE (21:00)
[2017-06-04] VITALS (8 sets, daily range): BP systolic 134–177; BP diastolic 66–82
[2017-06-04] MEDS ORDERED: fentaNYL INJECTION 100 MCG/2 ML AMP ONE (01:13)
[2017-06-04] MEDS ORDERED: fentaNYL INJECTION 100 MCG/2 ML AMP IVP ONE ×2 (01:15→03:00)
[2017-06-04] MEDS ORDERED: NS IV 1000 ML 1,000 ML IV SCH (02:30)
[2017-06-04] MEDS ORDERED: ONDANSETRON 4 MG/2 ML (SDV) Z0FRAN IVP ONE (02:30)
[2017-06-04] MEDS ORDERED: NS IV 1000 ML 1,000 ML ONE (04:11)
[2017-06-04] MEDS: fentaNYL INJECTION 100 MCG/2 ML AMP IVP PRN ×9 (04:18→22:56)
[2017-06-04] MEDS: NS IV 1000 ML 1,000 ML IV SCH ×4 (04:19→22:54)
[2017-06-04] MEDS ORDERED: ONDANSETRON 4 MG/2 ML (SDV) Z0FRAN IV PRN (05:30)
[2017-06-04] MEDS ORDERED: RT-ALBUTEROL SULF 2.5 MG/3 ML PRE-MIX VIAL IH PRN (05:30)
[2017-06-04] MEDS: CATHETER FLUSH 10 ML SYR IV SCH ×3 (06:00→22:01)
[2017-06-04 06:13] LABS: BASOPHILS # (AUTO) 0.1 10^3/uL (0.0-0.1); BASOPHILS % (AUTO) 0 % (0-10); EOSINOPHILS # (AUTO) 0.1 10^3/uL (0.0-0.3); EOSINOPHILS % (AUTO) 1 % (0-10); LYMPHOCYTES # (AUTO) 2.4 X 10^3 (1.0-4.0); LYMPHOCYTES % (AUTO) 19 % (12-44); MEAN CORPUSCULAR HEMOGLOBIN 30 PG (25-34); MEAN CORPUSCULAR HGB CONC 34 G/DL (32-36); MEAN CORPUSCULAR VOLUME 89 FL (80-99); MEAN PLATELET VOLUME 11.4 FL (7.4-10.4); MONOCYTES # (AUTO) 1.1 X 10^3 (0.0-1.0); MONOCYTES % (AUTO) 9 % (0-12); NEUTROPHILS # (AUTO) 9.3 X 10^3 (1.8-7.8); NEUTROPHILS % (AUTO) 72 % (42-75); PLATELET COUNT 276 10^3/uL (130-400); RED CELL DISTRIBUTION WIDTH 13.2 % (10.0-14.5); WHITE BLOOD COUNT 12.9 10^3/uL (4.3-11.0)
--- NOTE | 2017-06-04 06:23 | Diagnostic Imaging Report ---
PROCEDURE: CT abdomen and pelvis with contrast. TECHNIQUE: Multiple contiguous axial images were obtained through the abdomen and pelvis after administration of intravenous contrast. INDICATION: Pain. FINDINGS: There are findings of large bowel obstruction, abrupt transition in the proximal descending colon correlates with an area of somewhat irregular circumferential thickening of the wall. This could be obstruction from small mass or ischemic/inflammatory stricture. Endoscopic correlation recommended. The large bowel beyond that level is decompressed and proximally is dilated with fluid-fluid levels. There is cholelithiasis without acute cholecystitis. There is mild hepatic steatosis with no demonstrated liver mass. The adrenals and pancreas are negative. There are few small lymph nodes in the mid upper abdomen periceliac. No convincing pathological nodes are found. The appendix negative. There is no diverticulitis. Urinary tracts unobstructed and nonacute. The adrenals are unremarkable. The aorta is nonaneurysmal. There is a fatty right inguinal hernia. IMPRESSION: At least partial large bowel obstruction left colon with abrupt transition zone correlating with some irregular wall thickening. This could be malignant or benign stricture and endoscopic correlation recommended. No perforation or abscess. Fatty liver without mass, cholelithiasis noted. Dictated by: Dictated on workstation # [id number]
[2017-06-04 06:31] LABS: ALANINE AMINOTRANSFERASE 27 U/L (0-55); ALBUMIN 3.6 GM/DL (3.2-4.5); ANION GAP 10 MMOL/L (5-14); ASPARTATE AMINO TRANSFERASE 22 U/L (5-34); BILIRUBIN,TOTAL 0.6 MG/DL (0.1-1.0); BLOOD UREA NITROGEN 9 MG/DL (7-18); BUN/CREATININE RATIO 12; CALCIUM 8.5 MG/DL (8.5-10.1); CARBON DIOXIDE 21 MMOL/L (21-32); CHLORIDE 104 MMOL/L (98-107); CREATININE SERUM 0.73 MG/DL (0.60-1.30); GFR ESTIMATED > 60; GLUCOSE 118 MG/DL (70-105); POTASSIUM 3.7 MMOL/L (3.6-5.0); SODIUM 135 MMOL/L (135-145); TOTAL PROTEIN 7.8 GM/DL (6.4-8.2)
[2017-06-04] MEDS ORDERED: INFLUENZA TRIvalent 2017-2018 0.5 ML/45 MCG SYR IM ONE (07:00)
[2017-06-04] MEDS: RT-ALBUTEROL SULF 2.5 MG/3 ML PRE-MIX VIAL IH SCH ×4 (07:23→18:36)
[2017-06-04] MEDS ORDERED: CLOP75TA28 PO (07:42)
[2017-06-04] MEDS ORDERED: ASPI-983 PO (07:42)
[2017-06-04] MEDS ORDERED: ATOR10TA66 PO (07:42)
[2017-06-04] MEDS ORDERED: METO-333 PO (07:42)
[2017-06-04] MEDS ORDERED: BUDE10.2 INH (07:42)
[2017-06-04] MEDS ORDERED: MAGNESIUM CITRATE 300 ML BTL PO NR ×3 (07:44→17:30)
[2017-06-04] MEDS: METOCLOPRAMIDE INJ 10 MG/2 ML (REGLAN) IVP SCH ×4 (08:06→23:24)
--- NOTE | 2017-06-04 12:32 | History & Physical-Hospitalist ---
HPI History of Present Illness: HPI/Chief Complaint The patient is a 61-year-old white male who presented to the emergency room last evening with a complaint of abdominal pain and constipation. He reports that he is last bowel movement was one week ago today. He had a previous tendency towards constipation but usually had 1 bowel movement per day. He had been using laxatives, prune juice, fluid intake increase and 2 enemas but did not either vomit or have a bowel movement. He reports that he is quite distended. He believes that he had a colonoscopy 3-[address] Price in [place]. There is a past history of hepatitis C with pegylated interferon treatment about 6 years ago. Workup in the emergency room showed a bowel obstruction most suggestive of a colon mass. Source: patient Exam Limitations: no limitations Date Seen 06/04/17 Time Seen by Provider: 12:28 Attending Physician Laura Ramos MD PCP Michel Cramer MD Referring Physician Date of Admission Jun 04, 2017 at 02:12 Home Medications & Allergies Home Medications Reviewed patient Home Medication Reconciliation Form Allergies Allergies Coded Allergies No Known Drug Allergies (Unverified01/22/11) Past Cnvrfmu-Epvehr-Thggqh Hx Patient Social History Alcohol Use: Regular Use Number of Drinks Today: 3 Alcohol Beverage of Choice: Beer Recreational Drug Use: Yes Drug of Choice: Pot Smoking Status: Current Everyday Smoker Type Used: Cigars Physical Abuse Screen: No Sexual Abuse: No Recent Foreign Travel: No Contact w/other who traveled: No Recent Hopitalizations: No Recent Infectious Disease Expo: No Immunizations Up To Date Tetanus Booster (TDap): Unknown Seasonal Allergies Seasonal Allergies: No Surgeries Yes Coronary Stent Respiratory Yes Currently Using CPAP: No Cardiovascular Yes (STENT) High Cholesterol, Hypertension Neurological No Reproductive System Hx Reproductive Disorders: No Genitourinary No Gastrointestinal Yes (over last 6 months) Chronic Constipation Musculoskeletal No Endocrine History of Endocrine Disorders: No HEENT History of HEENT Disorders: No Cancer No Psychosocial History of Psychiatric Problem: No Integumentary History of Skin or Integumenta: No Blood Transfusions History of Blood Disorders: No Family Medical History Significant Family History: Heart Disease, Hypertension Review of Systems Constitutional: see HPI EENTM: no symptoms reported Respiratory: no symptoms reported Cardiovascular: no symptoms reported, Hx of Intervention Gastrointestinal: see HPI Genitourinary: no symptoms reported Musculoskeletal: no symptoms reported Skin: no symptoms reported Psychiatric/Neurological: No Symptoms Reported Physical Exam Physical Exam Vital Signs Vital Sign - Last 12Hours 06/03/17 06/04/17 19:00 07:23 Temp 97.9 Pulse 94 Resp 16 B/P (MAP) 163/105 (124) Pulse Ox 95 O2 Delivery Room Air O2 Flow Rate 2.00 Capillary Refill : Less Than 3 Seconds General Appearance: Mild Distress, Other (NG tube with faintly brown liquid return.) Eyes: Bilateral Eye Normal Inspection HEENT: Normal ENT Inspection Neck: Normal Inspection Cardiovascular: Regular Rate, Rhythm, No Edema, No Gallop, No JVD, No Murmur, Normal Peripheral Pulses Gastrointestinal: Abnormal Bowel Sounds (decreased bowel sounds), Distended, Tenderness Extremity: Normal Capillary Refill, Normal Inspection, Normal Range of Motion, Non Tender, No Calf Tenderness, No Pedal Edema Neurologic/Psychiatric: Alert, Oriented x3, No Motor/Sensory Deficits, Normal Mood/Affect Skin: Normal Color, Warm/Dry Lymphatic: No Adenopathy (to palpation) Results Results/Procedures Lab Laboratory Tests 06/03/17 20:00 06/04/17 05:53 Assessment/Plan Admission Diagnosis 1.colon obstruction most consistent with mass lesion. 2.history of coronary artery disease post-stenting 2 Assessment and Plan The patient reports that Dr. Stark has been here today and believes the most expeditious therapy would be laparotomy tomorrow. Clinical Quality Measures DVT/VTE Risk/Contraindication: Risk Factor Score Per Nursin RFS Level Per Nursing on Admit: 4+=Very High BALDO ISRAEL MD Jun 04, 2017 12:32
[2017-06-04] MEDS ORDERED: DIATRIZOATE MEGLUM/SODIUM 37% 120 ML (GASTROGRAFIN) RC ONE (14:45)
--- NOTE | 2017-06-04 14:57 | Consultation ---
History of Present Illness History of Present Illness Patient Consulted On(juan/time) 06/04/17 14:53 Date Seen by Provider: Jun 04, 2017 Time Seen by Provider: 06:55 Reason for Visit: increasing abdominal pain and constipation History of Present Illness insidious onset of lower abdominal pain and obstipation of 5 days' duration. no hematochezia. Strong family history of colon cancer and reports a normal colonoscopy 3 years ago. Allergies and Home Medications Allergies Coded Allergies: No Known Drug Allergies (Unverified , 01/22/11) Home Medications Aspirin 81 Mg Tablet.dr, 81 MG PO DAILY, (Reported) Atorvastatin Calcium 10 Mg Tablet, 10 MG PO HS, (Reported) Budesonide/Formoterol Fumarate 10.2 Gm Hfa.aer.ad, 2 PUFF INH BID, (Reported) Clopidogrel Bisulfate 75 Mg Tablet, 75 MG PO DAILY, (Reported) FILLED #30 -13-17 -PATIENT STATES AFTER HE FINISHES THIS MONTHS SUPPLY HE WAS TOLD TO STOP TAKING IT Enalapril Maleate 5 Mg Tablet, 5 MG PO BID, (Reported) Fish Oil/Dha/Epa 1 Each Capsule, 1,200 MG PO BID, (Reported) Metoprolol Tartrate 25 Mg Tablet, 25 MG PO BID, (Reported) Pantoprazole Sodium 40 Mg Tablet.dr, 40 MG PO DAILY, (Reported) Ropinirole HCl 2 Mg Tablet, 4 MG PO HS, (Reported) TAKES 2 (2MG) TABLETS Past Feopkoj-Esymdn-Jbrmvl Hx Patient Social History Alcohol Use: Regular Use Number of Drinks Today: 3 Alcohol Beverage of Choice: Beer Recreational Drug Use: Yes Drug of Choice: Pot Smoking Status: Current Everyday Smoker Type Used: Cigars Recent Foreign Travel: No Contact w/Someone Who Travel: No Recent Infectious Disease Expo: No Recent Hopitalizations: No Immunizations Up To Date Tetanus Booster (TDap): Unknown Seasonal Allergies Seasonal Allergies: No Surgeries History of Surgeries: Yes Surgeries: Coronary Stent Respiratory History of Respiratory Disorde: Yes Respiratory Disorders: COPD, Emphysema Currently Using CPAP: No Cardiovascular History of Cardiac Disorders: Yes (STENT) Cardiac Disorders: High Cholesterol, Hypertension Neurological History of Neurological Disord: No Reproductive System Hx Reproductive Disorders: No Genitourinary History of Genitourinary Disor: No Gastrointestinal History of Gastrointestinal Di: Yes (over last 6 months) Gastrointestinal Disorders: Chronic Constipation Musculoskeletal History of Musculoskeletal Dis: No Endocrine History of Endocrine Disorders: No HEENT History of HEENT Disorders: No Cancer History of Cancer: No Psychosocial History of Psychiatric Problem: No Integumentary History of Skin or Integumenta: No Blood Transfusions History of Blood Disorders: No Family Medical History Significant Family History: Heart Disease, Hypertension Review of Systems-General Constitutional: no symptoms reported EENTM: no symptoms reported Respiratory: cough Cardiovascular: no symptoms reported Gastrointestinal: see HPI Genitourinary: no symptoms reported Musculoskeletal: no symptoms reported Skin: no symptoms reported Psychiatric/Neurological: No Symptoms Reported Physical Exam-General Problems Physical Exam Vital Signs Vital Sign - Last 12Hours 06/03/17 06/04/17 19:00 07:23 Temp 97.9 Pulse 94 Resp 16 B/P (MAP) 163/105 (124) Pulse Ox 95 O2 Delivery Room Air O2 Flow Rate 2.00 Capillary Refill : Less Than 3 Seconds General Appearance: moderate distress HEENT: normal ENT inspection Neck: normal inspection Respiratory: decreased breath sounds Cardiovascular: regular rate, rhythm Gastrointestinal: soft, distended Rectal: deferred Back: normal inspection Extremities: normal inspection Neurologic/Psychiatric: alert, oriented x 3 Skin: warm/dry Comments distended abdomen but soft. Assessment/Plan Assessment/Plan Admission Diagnosis/Plan gentleman with large bowel obstruction with the appearance of a mass lesion along the proximal descending colon on a CT scan. Most likely adenocarcinoma with obstruction. Water soluble contrast enema pending. If complete obstruction confirmed, prompt resection with temporary colostomy would be performed. Clinical Quality Measures DVT/VTE Risk/Contraindication: Risk Factor Score Per Nursin RFS Level Per Nursing on Admit: 4+=Very High NICOLA AHMADI MD Jun 04, 2017 2:57 pm
--- NOTE | 2017-06-04 16:52 | Consultation-Cardiology ---
HPI-Cardiology Cardiology Consultation Date of Consultation 06/04/17 Date of Admission Time Seen by Provider: 16:45 Indication: Coronary artery disease HPI 61 years old gentleman with history of coronary artery disease, hypertension hyperlipidemia, has been having increasing abdominal distention, abdominal pain , nausea, came into the hospital and had workup showed large bowel obstruction due to annular constricting lesion in the proximal descending colon, reporting mild chest discomfort, denied any palpitation, syncope or near syncopal episodes. Has been taking aspirin and Plavix until 2 days ago. Last dose was taken on June 01, 2017 Home Medications & Allergies Allergies: Coded Allergies: No Known Drug Allergies (Unverified , 01/22/11) Home Medication List Reviewed: Yes [id number] Hx Patient Social History Marital Status: Employed/Student: employed Alcohol Use: Regular Use Recreational Drug Use: Yes Drug of Choice: Pot Smoking Status: Current Everyday Smoker Type Used: Cigars Recent Foreign Travel: No Recent Infectious Disease Expo: No Recent Hopitalizations: No Physical Abuse Screen: No Sexual Abuse: No Immunizations Up To Date Tetanus Booster (TDap): Unknown Past Medical History Past medical history as discussed below Family Medical History Significant Family History: Heart Disease, Hypertension Family Medical Hx Noncontributory to his current condition Constitutional: see HPI, malaise, weakness EENTM: see HPI, no symptoms reported Respiratory: see HPI, No cough, No dyspnea on exertion, No hemoptysis, No orthopnea, No phlegm, No short of breath, No stridor, No wheezing, No other Cardiovascular: see HPI, chest pain, No edema, No Hx of Intervention, No palpitations, No syncope, No vascular heart diseas, No other Gastrointestinal: see HPI, abdominal pain, constipation, nausea, other ( Abdominal distention) Genitourinary: no symptoms reported, see HPI Musculoskeletal: no symptoms reported, see HPI Skin: no symptoms reported, see HPI Psychiatric/Neurological: No Symptoms Reported, See HPI Reviewed Test Results Reviewed Test Results Lab Laboratory Tests Test 06/03/17 19:55 06/03/17 20:00 06/04/17 05:53 Range/Units Urine Color YELLOW Urine Clarity CLEAR Urine pH 5 5-9 Urine Specific [place] 1.025 H 1.016-1.022 Urine Protein 2+ H NEGATIVE Urine Glucose (UA) NEGATIVE NEGATIVE Urine Ketones 1+ H NEGATIVE Urine Nitrite NEGATIVE NEGATIVE Urine Bilirubin NEGATIVE NEGATIVE Urine Urobilinogen NORMAL NORMAL MG/DL Urine Leukocyte Esterase 1+ H NEGATIVE Urine RBC (Auto) NEGATIVE NEGATIVE Urine RBC NONE /HPF Urine WBC RARE /HPF Urine Crystals NONE /LPF Urine Bacteria NEGATIVE /HPF Urine Casts NONE /LPF Urine Mucus LARGE H /LPF Urine Culture Indicated NO Urine Opiates Screen NEGATIVE NEGATIVE Urine Oxycodone Screen NEGATIVE NEGATIVE Urine Methadone Screen NEGATIVE NEGATIVE Urine Propoxyphene Screen NEGATIVE NEGATIVE Urine Barbiturates Screen NEGATIVE NEGATIVE Ur Tricyclic Antidepressants Screen NEGATIVE NEGATIVE Urine Phencyclidine Screen NEGATIVE NEGATIVE Urine Amphetamines Screen NEGATIVE NEGATIVE Urine Methamphetamines Screen NEGATIVE NEGATIVE Urine Benzodiazepines Screen NEGATIVE NEGATIVE Urine Cocaine Screen NEGATIVE NEGATIVE Urine Cannabinoids Screen POSITIVE H NEGATIVE White Blood Count 14.9 H 12.9 H 4.3-11.0 10^3/uL Red Blood Count 4.99 4.60 4.35-5.85 10^6/uL Hemoglobin 15.1 13.8 13.3-17.7 G/DL Hematocrit 44 41 40-54 % Mean Corpuscular Volume 88 89 80-99 FL Mean Corpuscular Hemoglobin 30 30 25-34 PG Mean Corpuscular Hemoglobin Concent 34 34 32-36 G/DL Red Cell Distribution Width 13.1 13.2 10.0-14.5 % Platelet Count 326 276 130-400 10^3/uL Mean Platelet Volume 11.4 H 11.4 H 7.4-10.4 FL Neutrophils (%) (Auto) 81 H 72 42-75 % Lymphocytes (%) (Auto) 13 19 12-44 % Monocytes (%) (Auto) 5 9 0-12 % Eosinophils (%) (Auto) 0 1 0-10 % Basophils (%) (Auto) 0 0 0-10 % Neutrophils # (Auto) 12.0 H 9.3 H 1.8-7.8 X 10^3 Lymphocytes # (Auto) 2.0 2.4 1.0-4.0 X 10^3 Monocytes # (Auto) 0.8 1.1 H 0.0-1.0 X 10^3 Eosinophils # (Auto) 0.1 0.1 0.0-0.3 10^3/uL Basophils # (Auto) 0.1 0.1 0.0-0.1 10^3/uL Neutrophils % (Manual) 82 % Lymphocytes % (Manual) 10 % Monocytes % (Manual) 4 % Eosinophils % (Manual) 1 % Basophils % (Manual) 0 % Band Neutrophils 3 % Blood Morphology Comment NORMAL Sodium Level 137 135 135-145 MMOL/L Potassium Level 3.1 L 3.7 3.6-5.0 MMOL/L Chloride Level 102 104 98-107 MMOL/L Carbon Dioxide Level 21 21 21-32 MMOL/L Anion Gap 14 10 5-14 MMOL/L Blood Urea Nitrogen 11 9 7-18 MG/DL Creatinine 0.81 0.73 0.60-1.30 MG/DL Estimat Glomerular Filtration Rate > 60 > 60 BUN/Creatinine Ratio 14 12 Glucose Level 119 H 118 H 70-105 MG/DL Lactic Acid Level 1.98 0.50-2.00 MMOL/L Calcium Level 8.8 8.5 8.5-10.1 MG/DL Magnesium Level 2.2 1.8-2.4 MG/DL Total Bilirubin 0.6 0.6 0.1-1.0 MG/DL Aspartate Amino Transf (AST/SGOT) 25 22 5-34 U/L Alanine Aminotransferase (ALT/SGPT) 32 27 0-55 U/L Alkaline Phosphatase 93 78 40-136 U/L Total Protein 8.9 H 7.8 6.4-8.2 GM/DL Albumin 4.1 3.6 3.2-4.5 GM/DL Lipase 11 8-78 U/L Serum Alcohol < 10 <10 MG/DL Physical Exam Vital Signs Vital Sign - Last 12Hours 06/03/17 06/04/17 19:00 07:23 Temp 97.9 Pulse 94 Resp 16 B/P (MAP) 163/105 (124) Pulse Ox 95 O2 Delivery Room Air O2 Flow Rate 2.00 Capillary Refill : Less Than 3 Seconds General Appearance: No Apparent Distress, WD/WN Eyes: Bilateral Eye Normal Inspection, Bilateral Eye PERRL, Bilateral Eye EOMI HEENT: PERRL/EOMI, TMs Normal, Normal ENT Inspection, Pharynx Normal Neck: Full Range of Motion, Normal Inspection, Non Tender, Supple, Carotid Bruit Respiratory: Chest Non Tender, Lungs Clear, Normal Breath Sounds, No Accessory Muscle Use, No Respiratory Distress Cardiovascular: Regular Rate, Rhythm, No Edema, No Gallop, No JVD, No Murmur, Normal Peripheral Pulses Gastrointestinal: Abnormal Bowel Sounds, Distended, Tenderness Back: Normal Inspection, No CVA Tenderness, No Vertebral Tenderness Extremity: Normal Capillary Refill, Normal Inspection, Normal Range of Motion, Non Tender, No Calf Tenderness, No Pedal Edema Neurologic/Psychiatric: Alert, Oriented x3, No Motor/Sensory Deficits, Normal Mood/Affect Skin: Normal Color, Warm/Dry Lymphatic: No Adenopathy A/P-Cardiology Assessment/Plan Large bowel obstruction with a mass, needing surgery. Managed by Dr. Stark. Coronary artery disease, history of PTCA and stent placement May 05, 2012 using 3.5 x 22 mm Integrity stent to the right coronary artery, cardiac catheterization was done in August 2015 showing 70 percent in-stent restenosis in the midright coronary artery successful balloon angioplasty using 3.520 mm and 3.530 mm Amerge balloon with excellent results. Has 70 percent stenosis in the distal circumflex artery that is smaller artery 1.5-2 mm in diameter. Has been on aspirin and Plavix, has stopped the medication on June 01, 2017, continue to hold and monitor, I will evaluate baseline EKG. Chest pain nonspecific etiology, continue to monitor at this time. History of congestive heart failure, estimated ejection fraction 50%, per 2-D echocardiogram done June 2014. on beta crow and COLUMBA inhibitor, repeat echocardiogram was done in Jul 2015 showing ejection fraction 50 percent, pulmonary artery pressure of 40 mmHg. no signs of congestive heart failure at this time History of pericarditis, improved, continue to monitor. Pulmonary hypertension, last echocardiogram was done in July 2015 showing pulmonary artery pressure of 40 mmHg. Continue to monitor Hepatitis C/ Elevated liver enzymes, better at this time, followed by Dr. Albert Cervantes of Alcoholism, educated on avoiding alcohol products. Hypertension, continue to monitor blood pressure, use IV medications to achieve adequate blood pressure control Hyperlipidemia, has been on Lipitor as an outpatient. Continue to monitor Mild bilateral carotid stenosis, ultrasound was done in October 2016, continue to monitor Preoperative cardiac evaluation, patient is considered at intermediate risk for perioperative cardiac vascular complications, decision regarding the surgery, risks versus benefit is deferred to the surgeon, I recommend holding aspirin and Plavix for 5 days preoperatively unless surgery cannot wait. I will evaluate baseline EKG and continue to monitor. Clinical Quality Measures DVT/VTE Risk/Contraindication: Risk Factor Score Per Nursin RFS Level Per Nursing on Admit: 4+=Very High MEAGAN JACKSON MD Jun 04, 2017 16:52
[2017-06-04] MEDS: meTOprolol 5 MG/5 ML (LOPRESSOR) VIAL IV SCH ×2 (17:59→23:24)
[2017-06-04] MEDS: RT-ADVAIR HFA 115/21 MCG PER PUFF IH SCH (18:36)
--- NOTE | 2017-06-04 18:54 | Diagnostic Imaging Report ---
EXAMINATION: Gastrografin enema. Gastrografin contrast. INDICATION: Colonic obstruction FLUOROSCOPY TIME: 42 seconds TECHNIQUE: [employer] image of the abdomen was performed. Subsequently, the patient was tipped with a ballooned catheter in the rectum and the Gastrografin is instilled under fluoroscopic visualization with the several spot images and subsequent overhead images performed in different positions to cover the entire colon. FINDINGS: [employer] image of the abdomen demonstrate minimal contrast in the colon from recent CT scan. There is an NG tube seen. Gastrografin is administered through a rectal tube with the distal aspect of the colon opacified. There is a small amount of contrast passing proximal to the descending colon which demonstrates a proximal apple core lesion with a high-grade stricture with luminal narrowing about 6 mm in its narrowest point. This is highly suggestive of colon cancer. The proximal colon is not well evaluated on this exam. IMPRESSION: Apple core lesion in the proximal aspect of the descending colon is highly suggestive of colon cancer with partial obstruction. Dictated by: Dictated on workstation # [id number]
[2017-06-04] MEDS ORDERED: ENALAPRIL 5 MG (VASOTEC) TAB PO SCH (21:00)
[2017-06-04] MEDS ORDERED: ATORVASTATIN 10 MG (LIPITOR) TABLET PO SCH (21:00)
[2017-06-04] MEDS ORDERED: RT-SYMBICORT 160/4.5 MCG INHALER PER PUFF IH SCH (21:00)
[2017-06-04] MEDS ORDERED: meTOprolol TARTRATE 25 MG (LOPRESSOR) TABLET PO SCH (21:00)
[2017-06-05] MEDS: fentaNYL INJECTION 100 MCG/2 ML AMP IVP PRN (01:25)
[2017-06-05 04:00] VITALS: BP 146/75
[2017-06-05] MEDS: METOCLOPRAMIDE INJ 10 MG/2 ML (REGLAN) IVP SCH ×4 (05:56→23:47)
[2017-06-05] MEDS: meTOprolol 5 MG/5 ML (LOPRESSOR) VIAL IV SCH ×4 (05:57→23:53)
[2017-06-05] MEDS: CATHETER FLUSH 10 ML SYR IV SCH ×3 (06:05→22:46)
[2017-06-05] MEDS: RT-ALBUTEROL SULF 2.5 MG/3 ML PRE-MIX VIAL IH SCH ×4 (07:31→21:00)
[2017-06-05] MEDS: RT-ADVAIR HFA 115/21 MCG PER PUFF IH SCH ×2 (07:33→21:00)
--- NOTE | 2017-06-05 07:46 | Cardiology Progress Note ---
Subjective Date Seen by Provider: Jun 05, 2017 Time Seen by Provider: 07:41 Subjective/Events-last exam Patient is in bed, feeling better, has NG tube, denied any chest pain or shortness of breath Review of Systems General: No Chills, No Night Sweats, No Fatigue, No Malaise, No Appetite, No Other HEENT: No Head Aches, No Visual Changes, No Eye Pain, No Ear Pain, No Dysphasia , No Sinus Congestion, No Post Nasal Drip, No Sore Throat, No Other Pulmonary: No Dyspnea, No Cough, No Pleuritic Chest Pain, No Other Cardiovascular: No: Chest Pain, Palpitations, Orthopnea, Paroxysmal Noc. Dyspnea, Edema, Lt Headedness, Other Objective-Cardiology Exam Last Set of Vital Signs Vital Signs 06/05/17 06/05/17 06/05/17 04:00 07:31 07:37 Temp 98.9 Pulse 71 Resp 17 B/P (MAP) 146/75 (98) Pulse Ox 92 O2 Delivery Room Air O2 Flow Rate 0.00 Capillary Refill : Less Than 3 Seconds I&O Intake and Output 06/05/17 00:00 Intake Total 2000 ml Output Total 1425 ml Balance 575 ml Intake Oral 0 ml IV Total 2000 ml Output Urine Total 475 ml Gastric Drainage Total 950 ml # Bowel Movements 1 Daily Weight Change Unsure General: Alert, Oriented X3, Cooperative HEENT: Atraumatic, PERRLA Neck: Supple, No JVD, No Thyromegaly Lungs: Clear to Auscultation, Normal Air Movement Heart: Regular Rate, Normal S1, Normal S2, No Murmurs Abdomen: Normal Bowel Sounds, Soft, No Tenderness, No Hepatosplenomegaly, No Masses Extremities: No Clubbing, No Cyanosis, No Edema, Normal Pulses, No Tenderness/ Swelling Skin: No Rashes, No Breakdown, No Significant Lesion Neuro: Normal Gait, Normal Speech, Strength at 5/5 X4 Ext, Normal Tone, Sensation Intact Psych/Mental Status: Mental Status NL, Mood NL A/P-Cardiology Admission Diagnosis Large bowel obstruction Coronary artery disease Hypertension Hyperlipidemia Assessment/Plan Large bowel obstruction with a mass, Apple core lesion in the descending colon, suggestive of neoplasm, managed by Dr Stark, Possible surgery tomorrow Coronary artery disease, history of PTCA and stent placement May 05, 2012 using 3.5 x 22 mm Integrity stent to the right coronary artery, cardiac catheterization was done in August 2015 showing 70 percent in-stent restenosis in the midright coronary artery successful balloon angioplasty using 3.520 mm and 3.530 mm Amerge balloon with excellent results. Has 70 percent stenosis in the distal circumflex artery that is smaller artery 1.5-2 mm in diameter. Has been on aspirin and Plavix, has stopped the medication on June 01, 2017, continue to hold and monitor Chest pain nonspecific etiology, better at this time, continue to monitor History of congestive heart failure, estimated ejection fraction 50%, per 2-D echocardiogram done June 2014. on beta crow and COLUMBA inhibitor, repeat echocardiogram was done in Jul 2015 showing ejection fraction 50 percent, pulmonary artery pressure of 40 mmHg. no signs of congestive heart failure at this time History of pericarditis, improved, continue to monitor. Pulmonary hypertension, last echocardiogram was done in July 2015 showing pulmonary artery pressure of 40 mmHg. Continue to monitor Hepatitis C/ Elevated liver enzymes, better at this time, followed by Dr. Albert Cervantes of Alcoholism, educated on avoiding alcohol products, continue to monitor Hypertension, on IV Lopressor, continue to monitor Hyperlipidemia, has been on Lipitor as an outpatient, on hold now, continue to monitor Mild bilateral carotid stenosis, ultrasound was done in October 2016, continue to monitor Preoperative cardiac evaluation, patient is considered at intermediate risk for perioperative cardiac vascular complications, decision regarding the surgery, risks versus benefit is deferred to the surgeon, I recommend holding aspirin and Plavix for 5 days preoperatively unless surgery cannot wait. Clinical Quality Measures DVT/VTE Risk/Contraindication: Risk Factor Score Per Nursin RFS Level Per Nursing on Admit: 4+=Very High MEAGAN JACKSON MD Jun 05, 2017 07:46
[2017-06-05 08:00] VITALS: BP 157/78
[2017-06-05] MEDS ORDERED: MAGNESIUM CITRATE 300 ML BTL PO NR (08:00)
[2017-06-05] MEDS: NS IV 1000 ML 1,000 ML IV SCH ×3 (11:12→23:47)
[2017-06-05 12:00] VITALS: BP 165/81
--- NOTE | 2017-06-05 12:24 | Progress Note-Hospitalist ---
Standard Progress Note Progress Notes/Assess & Plan Date Seen 06/05/17 Time Seen by Provider: 12:22 Diagnosis 1.colon obstruction most consistent with mass lesion. 2.history of coronary artery disease post-stenting 2 Assess & Plan/Chief Complaint The patient reports that with the mag citrate he has had several liquid bowel movements. His NG tube is presently clamped and he is beginning to feel some discomfort and distention again. He had a Gastrografin barium enema which confirmed the CT impression of an obstructing apple core type mass lesion. He is on the schedule for surgery tomorrow. Physical exam: He is alert and oriented. He expresses modest discomfort to palpation and percussion of the abdomen. The abdomen appears distended. Lungs are clear to auscultation. CV is regular without murmur. Extremities show no edema. Impression: Obstructive tumor, colon. 2.history of coronary artery disease post -stenting 2. 3.tobaccoism Labs Laboratory Tests 06/03/17 20:00 06/04/17 05:53 BALDO ISRAEL MD Jun 05, 2017 12:24
[2017-06-05 16:06] VITALS: BP 132/77
--- NOTE | 2017-06-05 16:30 | Progress Note (SOAP) ---
Subjective Date Seen by Provider: Jun 05, 2017 Time Seen by Provider: 14:25 Subjective/Events-last exam abdominal pain much improved. Passing liquid stools. No vomiting. Vital signs stable. Cardiac clearance completed. Plavix on hold. Review of Systems General: No Chills, No Night Sweats, No Fatigue, No Malaise HEENT: No Head Aches, No Eye Pain, No Ear Pain, No Dysphasia, No Sinus Congestion, No Post Nasal Drip, No Sore Throat Pulmonary: No Dyspnea, No Cough, No Pleuritic Chest Pain Cardiovascular: No: Chest Pain, Palpitations, Orthopnea, Paroxysmal Noc. Dyspnea, Edema, Lt Headedness Gastrointestinal: No: Nausea, Vomiting, Abdominal Pain, Diarrhea, Constipation , Melena, Hematochezia Genitourinary: No Dysuria, No Frequency, No Incontinence, No Hematuria, No Retention Musculoskeletal: No: other, neck pain, shoulder pain, arm pain, back pain, hand pain, leg pain, foot pain Neurological: No: Weakness, Numbness, Incoordination, Change in speech, Confusion, Seizures, Other Objective Exam Vital Signs Date Time Temp Pulse Resp B/P (MAP) Pulse Ox O2 Delivery O2 Flow Rate FiO2 06/05/17 16:06 98.0 99 18 132/77 (95) 92 Room Air 06/05/17 15:28 89 Room Air 06/05/17 13:21 85 06/05/17 12:00 99.5 99 18 165/81 (109) 90 Room Air 06/05/17 11:30 90 Room Air 06/05/17 08:00 99.3 97 20 157/78 (104) 92 Room Air 06/05/17 07:37 0.00 06/05/17 07:31 92 Room Air 06/05/17 07:00 68 06/05/17 04:00 98.9 71 17 146/75 (98) 94 Room Air 06/05/17 01:00 64 06/04/17 23:25 98.9 89 18 177/82 (113) 96 Room Air 06/04/17 20:59 164/74 (104) 06/04/17 20:50 Nasal Cannula 2.00 06/04/17 19:29 99.1 93 20 94 Room Air 06/04/17 19:00 65 06/04/17 18:37 95 Nasal Cannula 2.00 I & O 12/12/17 07:00 Intake Total 4000 ml Output Total 1625 ml Balance 2375 ml Capillary Refill : Less Than 3 Seconds General Appearance: No Apparent Distress HEENT: Normal ENT Inspection Neck: Normal Inspection Respiratory: Lungs Clear Cardiovascular: Regular Rate, Rhythm Gastrointestinal: non tender, soft Extremity: Normal Inspection, No Calf Tenderness Neurologic/Psychiatric: Oriented x3 Skin: Warm/Dry Assessment/Plan Assessment/Plan Assess & Plan/Chief Complaint gentleman with large bowel obstruction with the appearance of a mass lesion along the proximal descending colon on a CT scan. Most likely adenocarcinoma with obstruction. Water soluble contrast enema pending. If complete obstruction confirmed, prompt resection with temporary colostomy would be performed. large bowel obstruction due to an apple core lesion at the proximal descending colon. Dilatation of the proximal colon. antiplatelet therapy due to cardiac intervention, on hold in anticipation of surgery. Laparotomy with left hemicolectomy with the potential for subtotal colectomy discussed thoroughly. Central venous catheter will be placed to facilitate hemodynamic monitoring. All questions answered. Final Diagnosis large bowel obstruction Clinical Quality Measures DVT/VTE Risk/Contraindication: Risk Factor Score Per Nursin RFS Level Per Nursing on Admit: 4+=Very High NICOLA AHMADI MD Jun 05, 2017 4:30 pm
--- NOTE | 2017-06-05 16:31 | Progress Note-Pre Operative ---
Pre-Operative Progress Note H&P Reviewed The H&P was reviewed, patient examined and no changes noted. Date Seen by Provider: Jun 05, 2017 Time Seen by Provider: 16:31 Date H&P Reviewed: Jun 05, 2017 Time H&P Reviewed: 16:31 Pre-Operative Diagnosis: large bowel obstruction. Tumor at the descending colon NICOLA AHMADI MD Jun 05, 2017 4:31 pm
[2017-06-05] MEDS ORDERED: ceFAZolin 2 GM/50 ML NS 50 ML IV NR (16:45)
[2017-06-05] MEDS ORDERED: metroNIDAZOLE 500MG/100ML IVPB 100 ML IV NR (16:45)
[2017-06-05 18:20] VITALS: BP 177/67
[2017-06-05] MEDS ORDERED: ALPRAZolam 1 MG (XANAX) TAB PO NR (18:30)
[2017-06-05 20:17] VITALS: BP 156/77
[2017-06-06] VITALS (17 sets, daily range): BP systolic 129–174; BP diastolic 73–101
[2017-06-06] MEDS: NS IV 1000 ML 1,000 ML IV SCH (05:48)
[2017-06-06] MEDS: METOCLOPRAMIDE INJ 10 MG/2 ML (REGLAN) IVP SCH ×3 (05:48→18:17)
[2017-06-06] MEDS: meTOprolol 5 MG/5 ML (LOPRESSOR) VIAL IV SCH ×3 (05:48→18:18)
[2017-06-06] MEDS: CATHETER FLUSH 10 ML SYR IV SCH ×3 (05:48→23:40)
[2017-06-06] MEDS ORDERED: BUP/EPI 0.5% 1:200,000 (MARCAINE) 10ML VIAL IJ ONE (06:28)
[2017-06-06] MEDS ORDERED: MIDAZOLAM 2 MG/2 ML (VERSED) VIAL ONE (07:07)
[2017-06-06] MEDS ORDERED: fentaNYL INJECTION 250 MCG/5 ML AMP ONE (07:07)
[2017-06-06] MEDS ORDERED: HEParin (CENTRAL IV FLUSH) 500 UNIT/5 ML SYR ONE (07:10)
[2017-06-06] MEDS ORDERED: ROCURONIUM 50 MG/5 ML (ZEMURON) VIAL IV ONE (08:45)
[2017-06-06] MEDS ORDERED: DEXAMETHASONE 10 MG/ML (DECADRON) 1 ML VIAL ONE (08:45)
[2017-06-06] MEDS ORDERED: metroNIDAZOLE 500MG/100ML IVPB 100 ML IV NR (08:45)
[2017-06-06] MEDS ORDERED: SUCCINYLCHOLINE INJ 100 MG/5 ML SYR ONE (08:45)
[2017-06-06] MEDS ORDERED: LACTATED RINGERS 1,000 ML IV PRN ×2 (08:45→11:03)
[2017-06-06] MEDS ORDERED: LIDOCAINE PF 2% 5 ML (XYLOCAINE) VIAL ONE (08:45)
[2017-06-06] MEDS ORDERED: ceFAZolin 2 GM/50 ML NS 50 ML IV NR (08:45)
[2017-06-06] MEDS ORDERED: proPOfol 200 MG/20 ML (DIPRIVAN) VIAL IV ONE (08:45)
[2017-06-06] MEDS ORDERED: SEVOFLURANE (ULTANE) 15 ML INHAL SOLN ONE ×8 (08:46→11:02)
[2017-06-06] MEDS ORDERED: morphine INJ 10 MG/ML 1ML (SYR OR VIAL) ONE (10:35)
[2017-06-06] MEDS ORDERED: GLYCOPYRROLATE 0.2 MG/ML (ROBINUL) 2 ML VIAL ONE (10:45)
[2017-06-06] MEDS ORDERED: NEOSTIGMINE (BLOXIVERZ ) 1 MG/1ML 10 ML VIAL ONE (10:45)
--- NOTE | 2017-06-06 11:03 | Operative Report ---
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 Nodular liver indicating chronic cirrhosis Procedure Performed 1.Central line placement 2. Sub-total colectomy with ileal distal sigmoid anastomosis Description of Procedure Anesthesia Type: General Estimated blood loss (mL): 100 mL Specimen(s) collected/removed total colon Description of the Procedure Indication for the procedure: This gentleman, with a family history of colon cancer, presented with a constrictive lesion at the proximal descending colon with obstruction, concerning for carcinoma. His bowel was temporarily decompressed to avoid cecal perforation. Surgery was delayed due to Plavix therapy, mainly at the recommendation of the manager of operations. Subsequently, he was offered exploration with a view to resecting the tumor and possibly creating an anastomosis. Due to distention of the cecum, the possibility of subtotal colectomy was highlighted. Placing a central venous catheter to facilitate hemodynamic monitoring and using total parenteral nutrition discussed. Informed consent was obtained after reviewing the details of the surgery, expected recovery, complications of anastomotic leak, intra-abdominal abscess and cardiorespiratory dysfunction. description of the procedure: He was placed supine on the operative table and general anesthesia induced using an endotracheal tube. 2 g of Ancef and 500 mg of Flagyl were administered intravenously as prophylaxis against wound infection. Sequential compression devices were placed around his legs, to minimize the risk of venous thrombosis. A Griffin catheter was placed to monitor urine output during the perioperative period. He was then placed in combined lithotomy position, to achieve exposure to the rectum, should an EEA anastomosis be considered. Pressure areas were padded and protected. 1. Central venous catheter placement: He was placed in Trendelenburg position and his neck prepared and draped in the usual sterile manner. Right internal jugular vein was localized using a 12 MHz ultrasound probe and a floppy guidewire introduced into the heart. Subcutaneous tract was gently dilated using a silastic sheath and a 16 cm long, 7.5 Upper Sorbian, triple-lumen central venous catheter advanced using Seldinger technique. All the channels were aspirated and flushed with heparinized saline. The catheter was then secured using his suture and a dressing applied. 2.subtotal colectomy with ileosigmoid anastomosis: Abdomen was prepared and draped in the usual sterile manner. A midline incision was made and abdomen entered safely. Cecum was enormously distended with a 2 cm area of pressure necrosis along the anterior aspect, indicating, impending perforation. In addition, a similar area was encountered along the ascending colon. The tumor was confirmed to be at the proximal descending colon. The surface of the liver was nodular possibly due to chronic cirrhosis. He did not have the appearance of metastatic disease. In addition, I did not identify any peritoneal deposits. Distal sigmoid colon was mobilized using Harmonic scalpel, identifying and protecting both ureters. It was then transected using a CRISTIANO-75 stapler. Mobilization was then continued along the left congenital white line of Toldt oozing Harmonic scalpel, around the splenic flexure to the mid transverse colon. The distal end of the inferior mesenteric artery was controlled using Harmonic scalpel middle colic vessels weight control using 0 silk sutures smaller sigmoidal branches were controlled using the Harmonic scalpel. Ileocecal was then mobilized in a similar fashion, continued along the right paracolic gutter, around the hepatic flexure to meet at the mid transverse colon. Ileocolic pedicle right colic pedicle where controlled using 0 silk sutures. Terminal ileum was divided using a CRISTIANO 75 mm stapler. The specimen was then sent over to the pathology lab. We then changed surgical blouse and prepared for the anastomosis. A side-to- side anastomosis was created between the terminal ileum and the distal sigmoid colon using a CRISTIANO-75 stapler. The common enterotomy was closed using a TA 60 stapler. The staple line was reinforced with Ligaclips and 3-0 silk sutures. A similar suture was placed along the crotch of the anastomosis, to avoid any tension on the staple line. Hemostasis was satisfactory and the abdomen thoroughly irrigated with warm saline. Fascia was closed using #2 Prolene,, in a continuous fashion. Subcutaneous tissues approximated using 2-0 PDS sutures. Skin was closed using tammy. 0.5 percent Marcaine with epinephrine was infiltrated along the incision at the end of the operation. He tolerated procedure well, was extubated in operating room and taken to the recovery room in a stable condition. Findings of the Procedure See op report Allergies and Home Medications Allergies Coded Allergies: No Known Drug Allergies (Unverified , 01/22/11) Home Medications Aspirin 81 Mg Tablet.dr, 81 MG PO DAILY, (Reported) Atorvastatin Calcium 10 Mg Tablet, 10 MG PO HS, (Reported) Budesonide/Formoterol Fumarate 10.2 Gm Hfa.aer.ad, 2 PUFF INH BID, (Reported) Clopidogrel Bisulfate 75 Mg Tablet, 75 MG PO DAILY, (Reported) FILLED #30 - -PATIENT STATES AFTER HE FINISHES THIS MONTHS SUPPLY HE WAS TOLD TO STOP TAKING IT Enalapril Maleate 5 Mg Tablet, 5 MG PO BID, (Reported) Fish Oil/Dha/Epa 1 Each Capsule, 1,200 MG PO BID, (Reported) Metoprolol Tartrate 25 Mg Tablet, 25 MG PO BID, (Reported) Pantoprazole Sodium 40 Mg Tablet.dr, 40 MG PO DAILY, (Reported) Ropinirole HCl 2 Mg Tablet, 4 MG PO HS, (Reported) TAKES 2 (2MG) TABLETS NICOLA AHMADI MD Jun 06, 2017 11:03 am
[2017-06-06] MEDS: HYDROmorphone (DILAUDID) 2 MG/ML VIAL IVP PRN ×2 (11:27→11:40)
[2017-06-06] MEDS ORDERED: ONDANSETRON 4 MG/2 ML (SDV) Z0FRAN IVP PRN (11:30)
[2017-06-06] MEDS ORDERED: morphine INJ 10 MG/ML 1ML (SYR OR VIAL) IVP PRN (11:30)
[2017-06-06] MEDS ORDERED: PROMETHAZINE INJ 25 MG/ML (PHENERGAN) AMP IVP PRN (11:30)
[2017-06-06] MEDS: fentaNYL INJECTION 100 MCG/2 ML AMP IV PRN ×7 (12:29→23:36)
[2017-06-06] MEDS: LACTATED RINGERS 1,000 ML IV SCH ×2 (12:35→21:22)
--- NOTE | 2017-06-06 13:50 | Cardiology Progress Note ---
Subjective Date Seen by Provider: Jun 06, 2017 Time Seen by Provider: 13:48 Subjective/Events-last exam Patient underwent hemicolectomy earlier today, recovering well. Denied any chest pain. Review of Systems General: No Chills, No Night Sweats, No Fatigue, No Malaise, No Appetite, No Other HEENT: No Head Aches, No Visual Changes, No Eye Pain, No Ear Pain, No Dysphasia , No Sinus Congestion, No Post Nasal Drip, No Sore Throat, No Other Pulmonary: No Dyspnea, No Cough, No Pleuritic Chest Pain, No Other Cardiovascular: No: Chest Pain, Palpitations, Orthopnea, Paroxysmal Noc. Dyspnea, Edema, Lt Headedness, Other Objective-Cardiology Exam Last Set of Vital Signs Vital Signs 06/06/17 06/06/17 12:10 13:30 Temp 97.8 Pulse 89 Resp 14 B/P (MAP) 153/92 (112) Pulse Ox 97 O2 Delivery Nasal Cannula O2 Flow Rate 3.00 Capillary Refill : Less Than 3 Seconds I&O Intake and Output 06/06/17 00:00 Intake Total 3000 ml Output Total 200 ml Balance 2800 ml Intake Oral 0 ml IV Total 3000 ml Output Urine Total 200 ml Gastric Drainage Total 0 ml # Voids 5 # Bowel Movements 7 General: Alert, Oriented X3, Cooperative HEENT: Atraumatic, PERRLA Neck: Supple, No JVD, No Thyromegaly Lungs: Clear to Auscultation, Normal Air Movement Heart: Regular Rate, Normal S1, Normal S2, No Murmurs Abdomen: Other (absent bowel sounds) Extremities: No Clubbing, No Cyanosis, No Edema, Normal Pulses, No Tenderness/ Swelling Skin: No Rashes, No Breakdown, No Significant Lesion Neuro: Normal Speech, Normal Tone, Sensation Intact Psych/Mental Status: Mental Status NL, Mood NL A/P-Cardiology Admission Diagnosis Large bowel obstruction Coronary artery disease Hypertension Hyperlipidemia Assessment/Plan Large bowel obstruction with a mass, Apple core lesion in the descending colon, suggestive of neoplasm, underwent hemicolectomy by michael Starr. Managed by Dr. Stark Coronary artery disease, history of PTCA and stent placement May 05, 2012 using 3.5 x 22 mm Integrity stent to the right coronary artery, cardiac catheterization was done in August 2015 showing 70 percent in-stent restenosis in the midright coronary artery successful balloon angioplasty using 3.520 mm and 3.530 mm Amerge balloon with excellent results. Has 70 percent stenosis in the distal circumflex artery that is smaller artery 1.5-2 mm in diameter. Has been on aspirin and Plavix, has stopped the medication on June 01, 2017, continue to hold and monitor History of congestive heart failure, estimated ejection fraction 50%, per 2-D echocardiogram done June 2014. on beta crow and COLUMBA inhibitor, repeat echocardiogram was done in Jul 2015 showing ejection fraction 50 percent, pulmonary artery pressure of 40 mmHg. no signs of congestive heart failure at this time History of pericarditis, improved, continue to monitor. Pulmonary hypertension, last echocardiogram was done in July 2015 showing pulmonary artery pressure of 40 mmHg. Continue to monitor Hepatitis C/ Elevated liver enzymes, better at this time, followed by Dr. Albert Cervantes of Alcoholism, educated on avoiding alcohol products, continue to monitor Hypertension, on IV Lopressor, continue to monitor Hyperlipidemia, has been on Lipitor as an outpatient, on hold now, continue to monitor Mild bilateral carotid stenosis, ultrasound was done in October 2016, continue to monitor Clinical Quality Measures DVT/VTE Risk/Contraindication: Risk Factor Score Per Nursin RFS Level Per Nursing on Admit: 4+=Very High MEAGAN JACKSON MD Jun 06, 2017 1:50 pm
[2017-06-06] MEDS ORDERED: meTOprolol 5 MG/5 ML (LOPRESSOR) VIAL IV NR (16:15)
[2017-06-06] MEDS: ceFAZolin INJECTION 1,000 MG in NS (IVPB) 50 ML IV SCH (16:53)
[2017-06-06] MEDS: metroNIDAZOLE 500MG/100ML IVPB 100 ML IV SCH (17:32)
[2017-06-06] MEDS: RT-ALBUTEROL SULF 2.5 MG/3 ML PRE-MIX VIAL IH SCH (18:09)
[2017-06-06] MEDS: RT-ADVAIR HFA 115/21 MCG PER PUFF IH SCH (18:09)
[2017-06-06] MEDS ORDERED: NON-FORMULARY MEDICATION 1 EA EA (Ropinirole HCl 4 MG) PO SCH (21:00)
[2017-06-06] MEDS: rOPINIRole 1 MG (REQUIP) TABLET PO SCH (21:21)
[2017-06-07] VITALS (15 sets, daily range): BP systolic 120–171; BP diastolic 67–97
[2017-06-07] MEDS: ceFAZolin INJECTION 1,000 MG in NS (IVPB) 50 ML IV SCH (00:08)
[2017-06-07] MEDS: METOCLOPRAMIDE INJ 10 MG/2 ML (REGLAN) IVP SCH ×5 (00:14→23:27)
[2017-06-07] MEDS: CATHETER FLUSH 10 ML SYR IV PRN ×3 (00:15→20:34)
[2017-06-07] MEDS: meTOprolol 5 MG/5 ML (LOPRESSOR) VIAL IV SCH ×2 (00:18→06:27)
[2017-06-07] MEDS: metroNIDAZOLE 500MG/100ML IVPB 100 ML IV SCH (01:04)
[2017-06-07] MEDS: LACTATED RINGERS 1,000 ML IV SCH ×4 (03:03→22:57)
[2017-06-07] MEDS: fentaNYL INJECTION 100 MCG/2 ML AMP IV PRN ×8 (04:18→23:33)
[2017-06-07 05:06] LABS: BASOPHILS % (AUTO) 0 % (0-10); EOSINOPHILS % (AUTO) 0 % (0-10); LYMPHOCYTES # (AUTO) 1.6 X 10^3 (1.0-4.0); LYMPHOCYTES % (AUTO) 12 % (12-44); MEAN CORPUSCULAR HEMOGLOBIN 31 PG (25-34); MEAN CORPUSCULAR HGB CONC 33 G/DL (32-36); MEAN CORPUSCULAR VOLUME 93 FL (80-99); MEAN PLATELET VOLUME 11.1 FL (7.4-10.4); MONOCYTES # (AUTO) 1.6 X 10^3 (0.0-1.0); MONOCYTES % (AUTO) 12 % (0-12); NEUTROPHILS # (AUTO) 10.5 X 10^3 (1.8-7.8); NEUTROPHILS % (AUTO) 77 % (42-75); PLATELET COUNT 278 10^3/uL (130-400); RED BLOOD COUNT 3.71 10^6/uL (4.35-5.85); RED CELL DISTRIBUTION WIDTH 12.9 % (10.0-14.5); WHITE BLOOD COUNT 13.7 10^3/uL (4.3-11.0)
[2017-06-07 05:26] LABS: MAGNESIUM 1.9 MG/DL (1.8-2.4); PHOSPHORUS 3.3 MG/DL (2.3-4.7)
[2017-06-07 05:30] LABS: ALANINE AMINOTRANSFERASE 21 U/L (0-55); ANION GAP 10 MMOL/L (5-14); ASPARTATE AMINO TRANSFERASE 26 U/L (5-34); BILIRUBIN,TOTAL 0.5 MG/DL (0.1-1.0); BLOOD UREA NITROGEN 10 MG/DL (7-18); BUN/CREATININE RATIO 14; CALCIUM 8.1 MG/DL (8.5-10.1); CARBON DIOXIDE 26 MMOL/L (21-32); CHLORIDE 100 MMOL/L (98-107); GFR ESTIMATED > 60; GLUCOSE 110 MG/DL (70-105); POTASSIUM 4.4 MMOL/L (3.6-5.0); SODIUM 136 MMOL/L (135-145); TOTAL PROTEIN 5.4 GM/DL (6.4-8.2)
[2017-06-07] MEDS: CATHETER FLUSH 10 ML SYR IV SCH ×3 (06:20→22:07)
[2017-06-07] MEDS: RT-ADVAIR HFA 115/21 MCG PER PUFF IH SCH ×2 (07:43→18:10)
[2017-06-07] MEDS: RT-ALBUTEROL SULF 2.5 MG/3 ML PRE-MIX VIAL IH SCH (07:43)
--- NOTE | 2017-06-07 08:09 | Cardiology Progress Note ---
Subjective Time Seen by Provider: 08:08 Subjective/Events-last exam Patient is in bed, complaining of some incisional pain, denies any CP or dyspnea. Objective-Cardiology Exam Last Set of Vital Signs Vital Signs 06/07/17 06/07/17 06/07/17 06/07/17 04:00 06:00 07:43 07:55 Temp 98.2 Pulse 57 Resp 13 B/P (MAP) 129/71 (90) Pulse Ox 96 O2 Delivery Nasal Cannula O2 Flow Rate 2.00 FiO2 28 Capillary Refill : Less Than 3 Seconds I&O Intake and Output 06/07/17 00:00 Intake Total 4735 ml Output Total 1170 ml Balance 3565 ml Intake Oral 460 ml IV Total 4275 ml Output Urine Total 1070 ml Estimated Blood Loss 100 ml # Voids 4 # Bowel Movements 3 General: Alert, Oriented X3, Cooperative HEENT: Atraumatic, PERRLA Neck: Supple, No JVD, No Thyromegaly Lungs: Clear to Auscultation, Normal Air Movement Heart: Regular Rate, Normal S1, Normal S2, No Murmurs Abdomen: Other (absent bowel sounds) Extremities: No Clubbing, No Cyanosis, No Edema, Normal Pulses, No Tenderness/ Swelling Skin: No Rashes, No Breakdown, No Significant Lesion Neuro: Normal Speech, Normal Tone, Sensation Intact Psych/Mental Status: Mental Status NL, Mood NL Results Lab Laboratory Tests 06/07/17 04:52 A/P-Cardiology Admission Diagnosis Large bowel obstruction Coronary artery disease Hypertension Hyperlipidemia Assessment/Plan Large bowel obstruction with a mass, Apple core lesion in the descending colon, suggestive of neoplasm, underwent hemicolectomy by michael Starr. Managed by Dr. Stark Coronary artery disease, history of PTCA and stent placement May 05, 2012 using 3.5 x 22 mm Integrity stent to the right coronary artery, cardiac catheterization was done in August 2015 showing 70 percent in-stent restenosis in the midright coronary artery successful balloon angioplasty using 3.520 mm and 3.530 mm Amerge balloon with excellent results. Has 70 percent stenosis in the distal circumflex artery that is smaller artery 1.5-2 mm in diameter. Has been on aspirin and Plavix, has stopped the medication on June 01, 2017, continue to hold and monitor History of congestive heart failure, estimated ejection fraction 50%, per 2-D echocardiogram done June 2014. on beta crow and COLUMBA inhibitor, repeat echocardiogram was done in Jul 2015 showing ejection fraction 50 percent, pulmonary artery pressure of 40 mmHg. no signs of congestive heart failure at this time History of pericarditis, improved, continue to monitor. Pulmonary hypertension, last echocardiogram was done in July 2015 showing pulmonary artery pressure of 40 mmHg. Continue to monitor Hepatitis C/ Elevated liver enzymes, better at this time, followed by Dr. Albert Cervantes of Alcoholism, educated on avoiding alcohol products, continue to monitor Hypertension, on IV Lopressor, will change to home PO meds and continue to monitor. Hyperlipidemia, has been on Lipitor as an outpatient, on hold now, continue to monitor Mild bilateral carotid stenosis, ultrasound was done in October 2016, continue to monitor Clinical Quality Measures DVT/VTE Risk/Contraindication: Risk Factor Score Per Nursin RFS Level Per Nursing on Admit: 4+=Very High JENNIE MENDEZ Jun 07, 2017 08:09
--- NOTE | 2017-06-07 08:46 | Cardiology Progress Note ---
Subjective Date Seen by Provider: Jun 07, 2017 Time Seen by Provider: 08:45 Subjective/Events-last exam Patient is laying down in bed, complaining of abdominal pain. Review of Systems General: No Chills, No Night Sweats, No Fatigue, No Malaise, No Appetite, No Other HEENT: No Head Aches, No Visual Changes, No Eye Pain, No Ear Pain, No Dysphasia , No Sinus Congestion, No Post Nasal Drip, No Sore Throat, No Other Pulmonary: No Dyspnea, No Cough, No Pleuritic Chest Pain, No Other Cardiovascular: No: Chest Pain, Palpitations, Orthopnea, Paroxysmal Noc. Dyspnea, Edema, Lt Headedness, Other Objective-Cardiology Exam Last Set of Vital Signs Vital Signs 06/07/17 06/07/17 06/07/17 06/07/17 06:00 07:43 07:55 08:00 Temp 98.9 Pulse 57 Resp 13 B/P (MAP) 129/71 (90) Pulse Ox 96 O2 Delivery Nasal Cannula O2 Flow Rate 2.00 FiO2 28 Capillary Refill : Less Than 3 Seconds I&O Intake and Output 06/07/17 00:00 Intake Total 4735 ml Output Total 1170 ml Balance 3565 ml Intake Oral 460 ml IV Total 4275 ml Output Urine Total 1070 ml Estimated Blood Loss 100 ml # Voids 4 # Bowel Movements 3 General: Alert, Oriented X3, Cooperative HEENT: Atraumatic, PERRLA Neck: Supple, No JVD, No Thyromegaly Lungs: Clear to Auscultation, Normal Air Movement Heart: Regular Rate, Normal S1, Normal S2, No Murmurs Abdomen: No Hepatosplenomegaly, Other (absent bowel sounds) Extremities: No Clubbing, No Cyanosis, No Edema, Normal Pulses, No Tenderness/ Swelling Skin: No Rashes, No Breakdown, No Significant Lesion Neuro: Normal Speech, Normal Tone, Sensation Intact Psych/Mental Status: Mental Status NL, Mood NL Results Lab Laboratory Tests 06/07/17 04:52 A/P-Cardiology Admission Diagnosis Large bowel obstruction Coronary artery disease Hypertension Hyperlipidemia Assessment/Plan Large bowel obstruction with a mass, Apple core lesion in the descending colon, suggestive of neoplasm, underwent hemicolectomy by Dr. Stark, recovering slowly. Managed by Dr. Stark Coronary artery disease, history of PTCA and stent placement May 05, 2012 using 3.5 x 22 mm Integrity stent to the right coronary artery, cardiac catheterization was done in August 2015 showing 70 percent in-stent restenosis in the midright coronary artery successful balloon angioplasty using 3.520 mm and 3.530 mm Amerge balloon with excellent results. Has 70 percent stenosis in the distal circumflex artery that is smaller artery 1.5-2 mm in diameter. Has been on aspirin and Plavix, has stopped the medication on June 01, 2017, continue to hold and monitor History of congestive heart failure, estimated ejection fraction 50%, per 2-D echocardiogram done June 2014. on beta crow and COLUMBA inhibitor, repeat echocardiogram was done in Jul 2015 showing ejection fraction 50 percent, pulmonary artery pressure of 40 mmHg. no signs of congestive heart failure at this time History of pericarditis, improved, continue to monitor. Pulmonary hypertension, last echocardiogram was done in July 2015 showing pulmonary artery pressure of 40 mmHg. Continue to monitor Hepatitis C/ Elevated liver enzymes, better at this time, followed by Dr. Albert Cervantes of Alcoholism, educated on avoiding alcohol products, continue to monitor Hypertension, on IV Lopressor, will change to home PO meds and continue to monitor. Hyperlipidemia, has been on Lipitor as an outpatient, on hold now, continue to monitor Mild bilateral carotid stenosis, ultrasound was done in October 2016, continue to monitor Clinical Quality Measures DVT/VTE Risk/Contraindication: Risk Factor Score Per Nursin RFS Level Per Nursing on Admit: 4+=Very High MEAGAN JACKSON MD Jun 07, 2017 8:46 am
--- NOTE | 2017-06-07 08:47 | Diagnostic Imaging Report ---
Portable erect AP chest at 4:46 AM. INDICATION: Preop cardiac catheterization. The heart size is within normal limits and stable when compared to 09/01/2015. In the interval since the prior exam, a central venous catheter has been inserted through the internal jugular vein on the right. The tip of the catheter overlies the mid portion of the superior vena cava and seems to be in good position. There is no sign of a pneumothorax on the right. The lungs are generally clear. There is no evidence for failure, pneumonia, or a pleural effusion. The calcified granuloma in the periphery of the right upper lobe seen previously is again evident and no different. The mediastinum is not widened. The osseous structures are intact. IMPRESSION: 1. There is no evidence for an acute cardiopulmonary abnormality. 2. There has been interval insertion of a central venous catheter on the right without apparent complication. Dictated by: Dictated on workstation # [id number]
[2017-06-07] MEDS: meTOprolol TARTRATE 25 MG (LOPRESSOR) TABLET PO SCH ×2 (09:47→20:34)
[2017-06-07] MEDS: ENALAPRIL 5 MG (VASOTEC) TAB PO SCH ×2 (09:47→20:34)
--- NOTE | 2017-06-07 10:58 | Progress Note-Hospitalist ---
Progress Note HPI/CC on Admission The patient is a 61-year-old white male who presented to the emergency room last evening with a complaint of abdominal pain and constipation. He reports that he is last bowel movement was one week ago today. He had a previous tendency towards constipation but usually had 1 bowel movement per day. He had been using laxatives, prune juice, fluid intake increase and 2 enemas but did not either vomit or have a bowel movement. He reports that he is quite distended. He believes that he had a colonoscopy 3-[address] Price in [place]. There is a past history of hepatitis C with pegylated interferon treatment about 6 years ago. Workup in the emergency room showed a bowel obstruction most suggestive of a colon mass. Progress Notes/Assess & Plan Date Seen 06/07/17 Time Seen by Provider: 10:30 Diagonsis/Assessment & Plan Chart Review: Pt not seen yesterday due to being in OR Reviewed op report form Dr. 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 WBC 13.7 Hgb 11.4 Patient Interview: Pt confirms PCP as Dr. Cramer, but Dr. Cramer is no longer doing primary care. Pt states his last appointment was supposed to be Sunday, but the pt was at [facility]. Pt states his pain was bad last night, but its now moderate. Physical exam stable. Pt confirms smoking cigars and having three drinks of ETOH daily. 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 Pt confirms that his work knows he had surgery. 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 Pt states he has a stent and was cathed. AFVSS, Pleasant, O x 3 RRR, CTAB No BS noted, ttp s/p OR Laboratory Tests 06/07/17 04:52 Assessment: s/p bowel obstruction due to tumor s/p resection now post-op ileus POD # 1 CAD prior stent Cigar smoker HTN COPD Plan: Monitor labs Monitor pt Pain control Scribed by Jennifer Elise under direct supervision of Dr. Davina Ng. DAVINA NG DO Jun 07, 2017 10:58
[2017-06-07] MEDS: RT-ALBUTEROL SULF 2.5 MG/3 ML PRE-MIX VIAL INH SCH ×4 (11:01→21:47)
[2017-06-07] MEDS: ENOXAPARIN 40 MG/0.4 ML (LOVENOX) SYR SC SCH (11:57)
--- NOTE | 2017-06-07 12:23 | Progress Note-Standard ---
Standard Progress Note Progress Notes/Assess & Plan Date Seen by Provider: Jun 07, 2017 Time Seen by Provider: 08:58 Progress/Assessment & Plan uneventful postoperative night. Urine output adequate. Tachycardia controlled. Minimal postoperative pain. Electrolytes normal. Final Diagnosis obstructing carcinoma of the descending colon NICOLA AHMADI MD Jun 07, 2017 12:23 pm
--- NOTE | 2017-06-07 13:09 | Anesthesia-General Post-Op ---
General Patient Condition Mental Status/LOC: Same as Preop Cardiovascular: Satisfactory Nausea/Vomiting: Absent Respiratory: Satisfactory Pain: Controlled Complications: Absent Post Op Complications Complications None Follow Up Care/Instructions Patient Instructions None needed. Anesthesia/Patient Condition Patient Condition Patient is doing well, no complaints, stable vital signs, no apparent adverse anesthesia problems. No complications reported per nursing. D/C home per [facility] Criteria: JOHN Vargas DO Jun 07, 2017 13:09
[2017-06-07] MEDS: rOPINIRole 1 MG (REQUIP) TABLET PO SCH (20:33)
[2017-06-08] VITALS: BP 155/79
[2017-06-08] MEDS: fentaNYL INJECTION 100 MCG/2 ML AMP IV PRN ×3 (01:48→06:05)
[2017-06-08] MEDS: RT-ALBUTEROL SULF 2.5 MG/3 ML PRE-MIX VIAL INH SCH ×6 (02:26→22:20)
[2017-06-08 04:00] VITALS: BP 110/71
[2017-06-08] MEDS: CATHETER FLUSH 10 ML SYR IV SCH ×3 (05:58→20:31)
[2017-06-08] MEDS: METOCLOPRAMIDE INJ 10 MG/2 ML (REGLAN) IVP SCH ×4 (05:58→23:17)
--- NOTE | 2017-06-08 06:57 | Progress Note-Standard ---
Standard Progress Note Progress Notes/Assess & Plan Date Seen by Provider: Jun 08, 2017 Time Seen by Provider: 06:57 Progress/Assessment & Plan uneventful postoperative night. Urine output adequate. Tachycardia controlled. Minimal postoperative pain. Electrolytes normal. continues to improve. Incision dry. We'll resume home medications Final Diagnosis obstructing carcinoma of the descending colon with impending cecal perforation. Coronary artery disease, stable NICOLA AHMADI MD Jun 08, 2017 6:57 am
[2017-06-08 08:00] VITALS: BP 138/76
[2017-06-08] MEDS: LACTATED RINGERS 1,000 ML IV SCH ×2 (08:01→21:10)
[2017-06-08] MEDS: ONDANSETRON 4 MG/2 ML (SDV) Z0FRAN IVP PRN (08:05)
[2017-06-08] MEDS: ENALAPRIL 5 MG (VASOTEC) TAB PO SCH ×2 (09:02→20:31)
[2017-06-08] MEDS: meTOprolol TARTRATE 25 MG (LOPRESSOR) TABLET PO SCH ×2 (09:02→20:31)
[2017-06-08] MEDS: HYDROcodone/APAP 5 MG/325 MG (LORTAB) TAB PO PRN ×4 (09:02→23:17)
[2017-06-08] MEDS: ASPIRIN E.C. 81 MG (ECOTRIN) TAB PO SCH (09:02)
[2017-06-08] MEDS: RT-ADVAIR HFA 115/21 MCG PER PUFF IH SCH ×2 (09:16→19:04)
[2017-06-08 10:11] LABS: BASOPHILS # (AUTO) 0.1 10^3/uL (0.0-0.1); BASOPHILS % (AUTO) 1 % (0-10); EOSINOPHILS # (AUTO) 0.7 10^3/uL (0.0-0.3); EOSINOPHILS % (AUTO) 5 % (0-10); LYMPHOCYTES # (AUTO) 1.5 X 10^3 (1.0-4.0); LYMPHOCYTES % (AUTO) 13 % (12-44); MEAN CORPUSCULAR HEMOGLOBIN 31 PG (25-34); MEAN CORPUSCULAR HGB CONC 33 G/DL (32-36); MEAN CORPUSCULAR VOLUME 93 FL (80-99); MEAN PLATELET VOLUME 10.9 FL (7.4-10.4); MONOCYTES # (AUTO) 1.2 X 10^3 (0.0-1.0); MONOCYTES % (AUTO) 10 % (0-12); NEUTROPHILS # (AUTO) 8.6 X 10^3 (1.8-7.8); NEUTROPHILS % (AUTO) 72 % (42-75); PLATELET COUNT 311 10^3/uL (130-400); RED BLOOD COUNT 3.97 10^6/uL (4.35-5.85); WHITE BLOOD COUNT 12.1 10^3/uL (4.3-11.0)
[2017-06-08 10:28] LABS: ALANINE AMINOTRANSFERASE 24 U/L (0-55); ALBUMIN 2.8 GM/DL (3.2-4.5); ANION GAP 9 MMOL/L (5-14); ASPARTATE AMINO TRANSFERASE 32 U/L (5-34); BILIRUBIN,TOTAL 0.5 MG/DL (0.1-1.0); BLOOD UREA NITROGEN 8 MG/DL (7-18); BUN/CREATININE RATIO 13; CALCIUM 7.9 MG/DL (8.5-10.1); CARBON DIOXIDE 25 MMOL/L (21-32); CHLORIDE 101 MMOL/L (98-107); CREATININE SERUM 0.63 MG/DL (0.60-1.30); GFR ESTIMATED > 60; GLUCOSE 143 MG/DL (70-105); POTASSIUM 3.8 MMOL/L (3.6-5.0); SODIUM 135 MMOL/L (135-145); TOTAL PROTEIN 6.5 GM/DL (6.4-8.2)
--- NOTE | 2017-06-08 11:10 | Progress Note-Hospitalist ---
Progress Note HPI/CC on Admission The patient is a 61-year-old white male who presented to the emergency room last evening with a complaint of abdominal pain and constipation. He reports that he is last bowel movement was one week ago today. He had a previous tendency towards constipation but usually had 1 bowel movement per day. He had been using laxatives, prune juice, fluid intake increase and 2 enemas but did not either vomit or have a bowel movement. He reports that he is quite distended. He believes that he had a colonoscopy 3-[address] Price in [place]. There is a past history of hepatitis C with pegylated interferon treatment about 6 years ago. Workup in the emergency room showed a bowel obstruction most suggestive of a colon mass. Progress Notes/Assess & Plan Date Seen 06/08/17 Time Seen by Provider: 10:30 Diagonsis/Assessment & Plan Chart Review: Max fever 99.5 CXR from yesterday showed no abnormality No labs done so will repeat Patient Interview: Pt states he was trying to lay down prior to interview. Pt states he has been up in the chair and has been moving around Pt's confirms pain still Pt confirms IS usage Pt was informed that labs will be done Physical exam stable. Lungs sound perfect Pt states he has heartburn. Pt confirms Tums usage at home AFVSS, Pleasant, O x 3 RRR, CTAB No BS noted, ttp s/p OR Laboratory Tests 06/08/17 09:37 Assessment: s/p bowel obstruction due to tumor s/p resection now post-op ileus POD # 2 CAD prior stent Cigar smoker HTN COPD Plan: Monitor pt Pain control IS Labs Scribed by Jennifer Elise under direct supervision of Dr. Davina Novak. DAVINA NOVAK DO Jun 08, 2017 11:10
[2017-06-08 12:08] VITALS: BP 118/68
--- NOTE | 2017-06-08 12:19 | Cardiology Progress Note ---
Subjective Date Seen by Provider: Jun 08, 2017 Time Seen by Provider: 12:18 Subjective/Events-last exam patient is sitting in a chair, feeling better, abdominal pain is better Review of Systems General: No Chills, No Night Sweats, No Fatigue, No Malaise, No Appetite, No Other HEENT: No Head Aches, No Visual Changes, No Eye Pain, No Ear Pain, No Dysphasia , No Sinus Congestion, No Post Nasal Drip, No Sore Throat, No Other Pulmonary: No Dyspnea, No Cough, No Pleuritic Chest Pain, No Other Cardiovascular: No: Chest Pain, Palpitations, Orthopnea, Paroxysmal Noc. Dyspnea, Edema, Lt Headedness, Other Objective-Cardiology Exam Last Set of Vital Signs Vital Signs 06/07/17 06/08/17 06/08/17 07:55 09:16 12:08 Temp 98.9 Pulse 66 Resp 18 B/P (MAP) 118/68 (85) Pulse Ox 91 O2 Delivery Room Air O2 Flow Rate 1.00 FiO2 28 Capillary Refill : Less Than 3 Seconds I&O Intake and Output 06/08/17 00:00 Intake Total 5701 ml Output Total 4525 ml Balance 1176 ml Intake Oral 4560 ml IV Total 1141 ml Output Urine Total 4525 ml General: Alert, Oriented X3, Cooperative HEENT: Atraumatic, PERRLA Neck: Supple, No JVD, No Thyromegaly Lungs: Clear to Auscultation, Normal Air Movement Heart: Regular Rate, Normal S1, Normal S2, No Murmurs Abdomen: Normal Bowel Sounds, Soft, No Hepatosplenomegaly Extremities: No Clubbing, No Cyanosis, No Edema, Normal Pulses, No Tenderness/ Swelling Skin: No Rashes, No Breakdown, No Significant Lesion Neuro: Normal Speech, Normal Tone, Sensation Intact Psych/Mental Status: Mental Status NL, Mood NL Results Lab Laboratory Tests 06/08/17 09:37 A/P-Cardiology Admission Diagnosis Large bowel obstruction Coronary artery disease Hypertension Hyperlipidemia Assessment/Plan Large bowel obstruction with a mass, Apple core lesion in the descending colon, suggestive of neoplasm, underwent hemicolectomy by Dr. Stark, recovering slowly. Managed by Dr. Stark Coronary artery disease, history of PTCA and stent placement May 05, 2012 using 3.5 x 22 mm Integrity stent to the right coronary artery, cardiac catheterization was done in August 2015 showing 70 percent in-stent restenosis in the midright coronary artery successful balloon angioplasty using 3.520 mm and 3.530 mm Amerge balloon with excellent results. Has 70 percent stenosis in the distal circumflex artery that is smaller artery 1.5-2 mm in diameter. Has been on aspirin and Plavix, has stopped the medication on June 01, 2017, continue to hold aspirin and Plavix at this time. History of congestive heart failure, estimated ejection fraction 50%, per 2-D echocardiogram done June 2014. on beta crow and COLUMBA inhibitor, repeat echocardiogram was done in Jul 2015 showing ejection fraction 50 percent, pulmonary artery pressure of 40 mmHg. no signs of congestive heart failure at this time History of pericarditis, improved, continue to monitor. Pulmonary hypertension, last echocardiogram was done in July 2015 showing pulmonary artery pressure of 40 mmHg. Continue to monitor Hepatitis C/ Elevated liver enzymes, better at this time, followed by Dr. Albert Cervantes of [facility], educated on avoiding alcohol products, continue to monitor Hypertension, on IV Lopressor, will change to home PO meds and continue to monitor. Hyperlipidemia, has been on Lipitor as an outpatient, on hold now, continue to monitor Mild bilateral carotid stenosis, ultrasound was done in October 2016, continue to monitor Clinical Quality Measures DVT/VTE Risk/Contraindication: Risk Factor Score Per Nursin RFS Level Per Nursing on Admit: 4+=Very High MEAGAN JACKSON MD Jun 08, 2017 12:19
[2017-06-08] MEDS: ENOXAPARIN 40 MG/0.4 ML (LOVENOX) SYR SC SCH (12:58)
[2017-06-08 15:55] VITALS: BP 122/63
[2017-06-08 20:00] VITALS: BP 121/69
[2017-06-08] MEDS: rOPINIRole 1 MG (REQUIP) TABLET PO SCH (20:31)
[2017-06-09] VITALS: BP 127/73
[2017-06-09] MEDS: ONDANSETRON 4 MG/2 ML (SDV) Z0FRAN IVP PRN ×2 (01:54→06:25)
[2017-06-09 02:00] VITALS: BP 141/68
[2017-06-09] MEDS ORDERED: PROMETHAZINE INJ 25 MG/ML (PHENERGAN) AMP IVP ONE (02:45)
[2017-06-09] MEDS: CATHETER FLUSH 10 ML SYR IV SCH ×3 (02:51→20:47)
[2017-06-09] MEDS: fentaNYL INJECTION 100 MCG/2 ML AMP IV PRN ×3 (03:14→11:27)
[2017-06-09] MEDS: RT-ALBUTEROL SULF 2.5 MG/3 ML PRE-MIX VIAL INH SCH ×6 (03:36→21:19)
[2017-06-09 04:00] VITALS: BP 138/94
[2017-06-09] MEDS: METOCLOPRAMIDE INJ 10 MG/2 ML (REGLAN) IVP SCH ×3 (05:06→18:10)
[2017-06-09 08:00] VITALS: BP 159/89
[2017-06-09] MEDS: ENALAPRIL 5 MG (VASOTEC) TAB PO SCH ×2 (09:02→20:45)
[2017-06-09] MEDS: meTOprolol TARTRATE 25 MG (LOPRESSOR) TABLET PO SCH ×2 (09:02→20:45)
[2017-06-09] MEDS: ASPIRIN E.C. 81 MG (ECOTRIN) TAB PO SCH (09:02)
[2017-06-09 09:08] LABS: MEAN PLATELET VOLUME 10.6 FL (7.4-10.4); RED BLOOD COUNT 4.41 10^6/uL (4.35-5.85); RED CELL DISTRIBUTION WIDTH 12.7 % (10.0-14.5); WHITE BLOOD COUNT 6.1 10^3/uL (4.3-11.0)
--- NOTE | 2017-06-09 09:10 | Diagnostic Imaging Report ---
INDICATION: Nausea and vomiting. Bowel obstruction. FINDINGS: Supine and upright views are obtained which show skin tammy in the midline. There are air-filled loops of nondilated small bowel with air-fluid levels. No abnormally dilated colon is seen. There is no unsuspected foreign body. IMPRESSION: Satisfactory postoperative abdomen. Dictated by: Dictated on workstation # [id number]
[2017-06-09 09:20] LABS: INR 1.1 (0.8-1.4); PROTHROMBIN TIME PATIENT 14.4 SEC (12.2-14.7)
[2017-06-09 09:29] LABS: ALANINE AMINOTRANSFERASE 36 U/L (0-55); ALBUMIN 3.5 GM/DL (3.2-4.5); ANION GAP 13 MMOL/L (5-14); ASPARTATE AMINO TRANSFERASE 36 U/L (5-34); BILIRUBIN,TOTAL 1.1 MG/DL (0.1-1.0); BLOOD UREA NITROGEN 13 MG/DL (7-18); BUN/CREATININE RATIO 18; CALCIUM 9.6 MG/DL (8.5-10.1); CARBON DIOXIDE 32 MMOL/L (21-32); CHLORIDE 94 MMOL/L (98-107); CREATININE SERUM 0.72 MG/DL (0.60-1.30); GFR ESTIMATED > 60; GLUCOSE 157 MG/DL (70-105); PHOSPHORUS 3.6 MG/DL (2.3-4.7); POTASSIUM 3.7 MMOL/L (3.6-5.0); SODIUM 139 MMOL/L (135-145); TOTAL PROTEIN 7.9 GM/DL (6.4-8.2); TRIGLYCERIDES 114 MG/DL (<150)
[2017-06-09] MEDS: HYDROcodone/APAP 5 MG/325 MG (LORTAB) TAB PO PRN (09:34)
--- NOTE | 2017-06-09 10:22 | Progress Note-Standard ---
Standard Progress Note Progress Notes/Assess & Plan Date Seen by Provider: Jun 09, 2017 Time Seen by Provider: 08:15 Progress/Assessment & Plan uneventful postoperative night. Urine output adequate. Tachycardia controlled. Minimal postoperative pain. Electrolytes normal. continues to improve. Incision dry. We'll resume home medications Nausea and vomiting last night. Afebrile. Slight abdominal distention. Will use NG tube if symptoms continue. Passing flatus and having liquid bowel movements. TPN to be used Final Diagnosis Obstructing carcinoma of the descending colon. Postoperative nausea and vomiting NICOLA AHMADI MD Jun 09, 2017 10:22 am
[2017-06-09] MEDS: RT-ADVAIR HFA 115/21 MCG PER PUFF IH SCH ×2 (11:25→21:19)
--- NOTE | 2017-06-09 11:46 | Cardiology Progress Note ---
Cardiology SOAP Progress Note Subjective: mild abdominal pain. No cardiac symptoms. Objective: I&O/Vital Signs Vital Sign - Last 12Hours 06/09/17 06/09/17 06/09/17 06/09/17 00:00 01:00 02:00 04:00 Temp 98.4 98.5 97.8 Pulse 104 83 54 84 Resp 19 19 19 B/P (MAP) 127/73 (91) 141/68 (92) 138/94 (109) Pulse Ox 93 95 95 O2 Delivery Nasal Cannula Nasal Cannula Nasal Cannula O2 Flow Rate 1.50 1.50 1.50 06/09/17 06/09/17 07:00 07:35 Pulse 72 O2 Delivery Nasal Cannula O2 Flow Rate 1.00 Intake and Output 06/09/17 00:00 Intake Total 3650 ml Output Total 1425 ml Balance 2225 ml Weight (Pounds): 193 Weight (Ounces): 4.0 Weight (Calculated Kilograms): [id number] Constitutional: No appears stated age, No AAO x 3, No apparent distress, No PERRL, No well-developed, No well-nourished, No other Respiratory: No accessory muscle use, No respiratory distress, No chest tender , No chest expansion is symmetric, No chest is bilaterally symmetric, No lungs clear to percussion, No lungs clear to auscultation, No crackles, No rhonchi, No rales, No stridor, No wheezing, No pleural rub, No other Cardiovascular: No regular rate-rhythm, No irregularly irregular, No extra beats, No parasternal heave is noted, No JVD, No edema, No bradycardia, No tachycardia, No point of maximal impulse, No cardiac thrills are palpable, No S1 and S2, No gallop/S3, No gallop/S4, No diastolic murmur, No systolic murmur, No friction rub, No click, No other Gastrointestional: No tender, No soft, No round, No distended, No pulsatile mass, No organomegaly, No guarding, No rebound, tenderness, No hernia, No mass, No audible bowel sounds, No abnormal bowel sounds, No abdominal bruits, No spleenomegaly, No other Extremities: No normal range of motion, No non-tender, No normal inspection, No pedal edema, No calf tenderness, No normal capillary refill, No pelvis stable , No calf tenderness, No inflammation, No pedal edema, No slow capillary refill , No swelling, No other, No abrasion, No clubbing, No cyanosis, No ecchymosis, No laceration, No no lower extremity edema bilateral, No significant edema, No tenderness, No wound Neurologic/Psychiatric: No manager unix II-XII nml as tested, No no motor/sensory deficits, No alert, No normal mood/affect, No oriented x 3, No abnormal cerebellar tests, No abnormal manager unix II-XII, No abnormal gait, No aphasia, No EOM palsy, No facial droop, No motor weakness, No sensory deficit, No depressed affect, No disoriented x 3, No other, No grossly intact, No power is 5/5 both on sides Skin: No normal color, No warm/dry, No cyanosis, No cool, No diaphoresis, No damp, No ecchymosis, No jaundice, No mottled, No pallor, No rash, No tattoos/ piercings, No ulcerations, No rash on exposed areas, No ulcerations on exposed areas, No other Results/Procedures: Labs Laboratory Tests 06/09/17 08:59: White Blood Count 6.1, Red Blood Count 4.41, Hemoglobin 13.2L, Hematocrit 40, Mean Corpuscular Volume 90, Mean Corpuscular Hemoglobin 30, Mean Corpuscular Hemoglobin Concent 33, Red Cell Distribution Width 12.7, Platelet Count 395, Mean Platelet Volume 10.6H, Prothrombin Time 14.4, INR Comment 1.1, Sodium Level 139, Potassium Level 3.7, Chloride Level 94L, Carbon Dioxide Level 32, Anion Gap 13, Blood Urea Nitrogen 13, Creatinine 0.72, Estimat Glomerular Filtration Rate > 60, BUN/Creatinine Ratio 18, Glucose Level 157H, Calcium Level 9.6, Phosphorus Level 3.6, Magnesium Level 2.0, Total Bilirubin 1.1H, Aspartate Amino Transf (AST/SGOT) 36H, Alanine Aminotransferase (ALT/SGPT) 36, Alkaline Phosphatase 56, Total Protein 7.9, Albumin 3.5, Prealbumin 9.4L, Triglycerides Level 114 Microbiology 06/05/17 MRSA Screen - Final, Complete MRSA not isolated A/P: Assessment/Dx: Large bowel obstruction Coronary artery disease Hypertension Hyperlipidemia Plan: Large bowel obstruction with a mass, Apple core lesion in the descending colon, suggestive of neoplasm, underwent hemicolectomy by Dr. Stark, recovering slowly. Managed by Dr. Stark Coronary artery disease, history of PTCA and stent placement May 05, 2012 using 3.5 x 22 mm Integrity stent to the right coronary artery, cardiac catheterization was done in August 2015 showing 70 percent in-stent restenosis in the midright coronary artery successful balloon angioplasty using 3.520 mm and 3.530 mm Amerge balloon with excellent results. Has 70 percent stenosis in the distal circumflex artery that is smaller artery 1.5-2 mm in diameter. Has been on aspirin and Plavix, has stopped the medication on June 01, 2017, continue to hold aspirin and Plavix at this time. History of congestive heart failure, estimated ejection fraction 50%, per 2-D echocardiogram done June 2014. on beta crow and COLUMBA inhibitor, repeat echocardiogram was done in Jul 2015 showing ejection fraction 50 percent, pulmonary artery pressure of 40 mmHg. no signs of congestive heart failure at this time History of pericarditis, improved, continue to monitor. Pulmonary hypertension, last echocardiogram was done in July 2015 showing pulmonary artery pressure of 40 mmHg. Continue to monitor Hepatitis C/ Elevated liver enzymes, better at this time, followed by Dr. Albert Cervantes of Alcoholism, educated on avoiding alcohol products, continue to monitor Hypertension, on IV Lopressor, will change to home PO meds and continue to monitor. Hyperlipidemia, has been on Lipitor as an outpatient, on hold now, continue to monitor Mild bilateral carotid stenosis, ultrasound was done in October 2016, continue to monitor Thank you for your consultation. Please call me if you have any questions. Yu Chase MD, FACP, FACC, FSCAI, FHRS, CCDS Interventional Cardiology Cardiac Electrophysiology Vascular Medicine and Endovascular Interventions Fernando CHASE MD Jun 09, 2017 11:46 am
--- NOTE | 2017-06-09 12:20 | Progress Note-Hospitalist ---
Subjective HPI/CC On Admission Date Seen by Provider: Jun 09, 2017 Time Seen by Provider: 12:14 The patient is a 61-year-old white male who presented to the emergency room last evening with a complaint of abdominal pain and constipation. He reports that he is last bowel movement was one week ago today. He had a previous tendency towards constipation but usually had 1 bowel movement per day. He had been using laxatives, prune juice, fluid intake increase and 2 enemas but did not either vomit or have a bowel movement. He reports that he is quite distended. He believes that he had a colonoscopy 3-[address] Price in [place]. There is a past history of hepatitis C with pegylated interferon treatment about 6 years ago. Workup in the emergency room showed a bowel obstruction most suggestive of a colon mass. Subjective/Events-last exam patient has had trouble with nausea overnight. He had about 900 mL emesis and NG tube was just replaced without 2 L of output. The patient is much more comfortable currently and resting. KUB shows some air-fluid levels. Review of Systems Gastrointestinal: Nausea, Vomiting Objective Exam Vital Signs Vital Sign - Last 12Hours 06/04/17 06/04/17 06/07/17 03:16 07:23 07:55 Temp 98.0 Pulse 92 Resp 16 B/P (MAP) 141/66 (91) Pulse Ox 96 O2 Delivery Room Air O2 Flow Rate 2.00 FiO2 28 Capillary Refill : Less Than 3 Seconds General Appearance: No Apparent Distress Neck: Limited Range of Motion Respiratory: Lungs Clear, Normal Breath Sounds, No Accessory Muscle Use, No Respiratory Distress Cardiovascular: Regular Rate, Rhythm, No Gallop, No Murmur Gastrointestinal: Abnormal Bowel Sounds, Distended Extremity: No Pedal Edema Neurologic/Psychiatric: Alert, Oriented x3 Results/Procedures Lab Laboratory Tests 06/10/17 09:30 Assessment/Plan Assessment and Plan Assess & Plan/Chief Complaint s/p bowel obstruction due to tumor s/p resection now post-op ileus POD # 3- status post NG tube placement. Dr. Stark started TPN. CAD prior stent Cigar smoker HTN COPD protein calorie malnutrition secondary to bowel obstruction hyperglycemia with no previous history of diabetes LIBORIO SORIA MD Jun 09, 2017 12:20
[2017-06-09] MEDS: LACTATED RINGERS 1,000 ML IV SCH ×5 (13:16→22:35)
[2017-06-09 16:20] VITALS: BP 130/82
[2017-06-09] MEDS ORDERED: TPN IV SCH (17:30)
[2017-06-09] MEDS: rOPINIRole 1 MG (REQUIP) TABLET PO SCH (20:45)
[2017-06-09 23:30] VITALS: BP 133/81
[2017-06-10] MEDS: METOCLOPRAMIDE INJ 10 MG/2 ML (REGLAN) IVP SCH ×5 (00:07→23:59)
[2017-06-10] MEDS: RT-ALBUTEROL SULF 2.5 MG/3 ML PRE-MIX VIAL INH SCH (01:41)
[2017-06-10] MEDS: LACTATED RINGERS 1,000 ML IV SCH ×2 (04:03→12:15)
[2017-06-10] MEDS: fentaNYL INJECTION 100 MCG/2 ML AMP IV PRN ×2 (04:03→13:22)
[2017-06-10] MEDS: CATHETER FLUSH 10 ML SYR IV SCH ×3 (05:10→20:09)
[2017-06-10 07:29] VITALS: BP 144/87
[2017-06-10] MEDS ORDERED: RT-ALBUTEROL SULF 2.5 MG/3 ML PRE-MIX VIAL INH PRN (07:30)
[2017-06-10] MEDS: ASPIRIN E.C. 81 MG (ECOTRIN) TAB PO SCH (09:07)
[2017-06-10] MEDS: ENALAPRIL 5 MG (VASOTEC) TAB PO SCH ×2 (09:07→20:07)
[2017-06-10] MEDS: meTOprolol TARTRATE 25 MG (LOPRESSOR) TABLET PO SCH ×2 (09:07→20:07)
[2017-06-10 09:53] LABS: BASOPHILS # (AUTO) 0.1 10^3/uL (0.0-0.1); BASOPHILS % (AUTO) 1 % (0-10); EOSINOPHILS # (AUTO) 0.4 10^3/uL (0.0-0.3); EOSINOPHILS % (AUTO) 6 % (0-10); LYMPHOCYTES # (AUTO) 1.5 X 10^3 (1.0-4.0); LYMPHOCYTES % (AUTO) 21 % (12-44); MEAN CORPUSCULAR HEMOGLOBIN 30 PG (25-34); MEAN CORPUSCULAR HGB CONC 32 G/DL (32-36); MEAN CORPUSCULAR VOLUME 92 FL (80-99); MEAN PLATELET VOLUME 11.2 FL (7.4-10.4); MONOCYTES # (AUTO) 1.3 X 10^3 (0.0-1.0); MONOCYTES % (AUTO) 19 % (0-12); NEUTROPHILS # (AUTO) 3.7 X 10^3 (1.8-7.8); NEUTROPHILS % (AUTO) 54 % (42-75); PLATELET COUNT 375 10^3/uL (130-400); RED BLOOD COUNT 4.16 10^6/uL (4.35-5.85); RED CELL DISTRIBUTION WIDTH 13.1 % (10.0-14.5)
[2017-06-10 10:05] LABS: INR 1.1 (0.8-1.4); PROTHROMBIN TIME PATIENT 14.1 SEC (12.2-14.7)
--- NOTE | 2017-06-10 10:05 | Progress Note-Hospitalist ---
Subjective HPI/CC On Admission Date Seen by Provider: Jun 10, 2017 Time Seen by Provider: 09:45 The patient is a 61-year-old white male who presented to the emergency room last evening with a complaint of abdominal pain and constipation. He reports that he is last bowel movement was one week ago today. He had a previous tendency towards constipation but usually had 1 bowel movement per day. He had been using laxatives, prune juice, fluid intake increase and 2 enemas but did not either vomit or have a bowel movement. He reports that he is quite distended. He believes that he had a colonoscopy 3-[address] Price in [place]. There is a past history of hepatitis C with pegylated interferon treatment about 6 years ago. Workup in the emergency room showed a bowel obstruction most suggestive of a colon mass. Subjective/Events-last exam patient has had for diarrhea's stools today. He has had copious amount of output from his NG tube. He denies having any chest pain or shortness of breath. He has not gotten up and walked although is been to the bathroom several times. Review of Systems Gastrointestinal: Diarrhea Neurological: Weakness Objective Exam Vital Signs Vital Sign - Last 12Hours 06/04/17 06/04/17 06/07/17 03:16 07:23 07:55 Temp 98.0 Pulse 92 Resp 16 B/P (MAP) 141/66 (91) Pulse Ox 96 O2 Delivery Room Air O2 Flow Rate 2.00 FiO2 28 Capillary Refill : Less Than 3 Seconds General Appearance: No Apparent Distress, WD/WN HEENT: Normal ENT Inspection Respiratory: Lungs Clear, Normal Breath Sounds, No Accessory Muscle Use Cardiovascular: Regular Rate, Rhythm, No Gallop, No Murmur Gastrointestinal: Abnormal Bowel Sounds, Other (postoperative) Extremity: Normal Range of Motion, Non Tender, No Calf Tenderness Neurologic/Psychiatric: Alert, Oriented x3, No Motor/Sensory Deficits, Normal Mood/Affect Results/Procedures Lab Laboratory Tests 06/10/17 09:30 Assessment/Plan Assessment and Plan Assess & Plan/Chief Complaint s/p bowel obstruction due to tumor s/p resection now post-op ileus POD # 4- status post NG tube placement. Dr. Stark placed on TPN. CAD prior stent Cigar smoker HTN COPD protein calorie malnutrition secondary to bowel obstruction hyperglycemia with no previous history of diabetes LIBORIO SORIA MD Jun 10, 2017 10:05 am
[2017-06-10 10:11] LABS: ALANINE AMINOTRANSFERASE 37 U/L (0-55); ALBUMIN 3.3 GM/DL (3.2-4.5); ANION GAP 17 MMOL/L (5-14); ASPARTATE AMINO TRANSFERASE 45 U/L (5-34); BILIRUBIN,TOTAL 0.7 MG/DL (0.1-1.0); BLOOD UREA NITROGEN 19 MG/DL (7-18); BUN/CREATININE RATIO 24; CALCIUM 9.4 MG/DL (8.5-10.1); CARBON DIOXIDE 37 MMOL/L (21-32); CHLORIDE 89 MMOL/L (98-107); CREATININE SERUM 0.79 MG/DL (0.60-1.30); GFR ESTIMATED > 60; GLUCOSE 138 MG/DL (70-105); MAGNESIUM 1.9 MG/DL (1.8-2.4); PHOSPHORUS 3.6 MG/DL (2.3-4.7); SODIUM 143 MMOL/L (135-145); TOTAL PROTEIN 7.5 GM/DL (6.4-8.2); TRIGLYCERIDES 141 MG/DL (<150)
[2017-06-10] MEDS ORDERED: POTASSIUM CL 10 MEQ/50 ML IVPB (PRE-MIX) IV SCH (10:30)
[2017-06-10] MEDS: RT-ADVAIR HFA 115/21 MCG PER PUFF IH SCH ×2 (10:35→21:42)
[2017-06-10] MEDS: RT-ALBUTEROL/IPRATROPIUM 3 ML (DUONEB) VIAL INH SCH ×3 (10:35→21:40)
[2017-06-10 10:39] LABS: BAND NEUTROPHILS 7 %; EOSINOPHILS % (MANUAL) 4 %; LYMPHOCYTES % (MANUAL) 25 %; NEUTROPHILS % (MANUAL) 46 %
[2017-06-10] MEDS: POTASSIUM CL 10 MEQ/50 ML IVPB (PRE-MIX) IV SCH ×6 (11:15→16:17)
[2017-06-10 11:40] VITALS: BP 141/78
--- NOTE | 2017-06-10 12:26 | Progress Note ---
Subjective Time Seen by Provider: 11:37 Subjective/Events-last exam Pt seen and examined, states he is taking clears without nausea. But, did have some emesis yesterday. He states he has had 2 or 3 loose stools. Denies abdominal pain. Review of Systems General: No Chills Pulmonary: No Dyspnea, No Cough Cardiovascular: No: Chest Pain Gastrointestinal: Diarrhea, No: Abdominal Pain Objective Exam Vital Signs Date Time Temp Pulse Resp B/P (MAP) Pulse Ox O2 Delivery O2 Flow Rate FiO2 06/10/17 11:40 99.3 77 18 141/78 (99) 93 Room Air 06/10/17 10:40 Nasal Cannula 2.00 06/10/17 07:29 98.9 97 20 144/87 (106) 94 Room Air 06/10/17 07:29 107 06/10/17 07:18 104 90 28 06/10/17 07:00 107 06/10/17 01:41 92 Nasal Cannula 2.00 06/10/17 01:00 101 06/09/17 23:30 96.8 111 20 133/81 (98) 91 Room Air 2.00 06/09/17 21:25 Nasal Cannula 2.00 06/09/17 21:20 90 Nasal Cannula 2.00 06/09/17 20:40 Nasal Cannula 2.00 06/09/17 19:00 110 06/09/17 16:20 99.6 107 20 130/82 (98) 94 Room Air 2.00 06/09/17 15:24 90 Nasal Cannula 2.00 06/09/17 13:00 102 I & O 06/10/17 07:00 Intake Total 1000 ml Output Total 6550 ml Balance -5550 ml Capillary Refill : Less Than 3 Seconds General Appearance: No Apparent Distress, WD/WN Neck: Limited Range of Motion Respiratory: Lungs Clear, Normal Breath Sounds, No Accessory Muscle Use Cardiovascular: Regular Rate, Rhythm, No Murmur Peripheral Pulses: 2+ Dorsalis Pedis (R), 2+ Left Dors-Pedis (L), 2+ Radial Pulses (R), 2+ Radial Pulses (L) Gastrointestinal: non tender, soft, other (incision is c/d/i) Extremity: No Calf Tenderness Neurologic/Psychiatric: Alert, Oriented x3 Skin: Warm/Dry Results Lab Laboratory Tests 06/10/17 08:18: Glucometer 121H 06/10/17 09:30: White Blood Count 7.0, Red Blood Count 4.16L, Hemoglobin 12.4L, Hematocrit 38L, Mean Corpuscular Volume 92, Mean Corpuscular Hemoglobin 30, Mean Corpuscular Hemoglobin Concent 32, Red Cell Distribution Width 13.1, Platelet Count 375, Mean Platelet Volume 11.2H, Neutrophils (%) (Auto) 54, Lymphocytes (%) (Auto) 21 , Monocytes (%) (Auto) 19H, Eosinophils (%) (Auto) 6, Basophils (%) (Auto) 1, Neutrophils # (Auto) 3.7, Lymphocytes # (Auto) 1.5, Monocytes # (Auto) 1.3H, Eosinophils # (Auto) 0.4H, Basophils # (Auto) 0.1, Neutrophils % (Manual) 46, Lymphocytes % (Manual) 25, Monocytes % (Manual) 18, Eosinophils % (Manual) 4, Band Neutrophils 7, Blood Morphology Comment NORMAL, Prothrombin Time 14.1, INR Comment 1.1, Sodium Level 143, Potassium Level 3.0L, Chloride Level 89L, Carbon Dioxide Level 37H, Anion Gap 17H, Blood Urea Nitrogen 19H, Creatinine 0.79, Estimat Glomerular Filtration Rate > 60, BUN/Creatinine Ratio 24, Glucose Level 138H, Calcium Level 9.4, Phosphorus Level 3.6, Magnesium Level 1.9, Total Bilirubin 0.7, Aspartate Amino Transf (AST/SGOT) 45H, Alanine Aminotransferase ( ALT/SGPT) 37, Alkaline Phosphatase 59, Total Protein 7.5, Albumin 3.3, Prealbumin 10.1L, Triglycerides Level 141 Microbiology 06/05/17 MRSA Screen - Final, Complete MRSA not isolated Assessment/Plan Assessment/Plan Assessment/Plan S/P Subtotal Colectomy with Ileal-rectal anastomosis D/C ngt, clears, ambulate, use IS. Heplock IV. Clinical Quality Measures DVT/VTE Risk/Contraindication: Risk Factor Score Per Nursin RFS Level Per Nursing on Admit: 4+=Very High ZAYDA RICHARDS DO Jun 10, 2017 12:26
[2017-06-10 16:00] VITALS: BP 137/74
[2017-06-10] MEDS ORDERED: SODIUM CHLORIDE IV SCH ×11 (17:00)
[2017-06-10] MEDS ORDERED: POTASSIUM CHLORIDE IV SCH ×11 (17:00)
[2017-06-10] MEDS ORDERED: 1/2 NS IV SOLUTION 1,000 ML IV SCH (17:00)
[2017-06-10] MEDS ORDERED: [UNRECOGNIZED DRUG - OTHER] IV SCH ×11 (17:00)
--- NOTE | 2017-06-10 18:06 | Cardiology Progress Note ---
Cardiology SOAP Progress Note Subjective: No cardiac complaints. Objective: I&O/Vital Signs Vital Sign - Last 12Hours 06/10/17 06/10/17 06/10/17 06/10/17 07:00 07:18 07:29 07:29 Temp 98.9 Pulse 107 104 107 97 Resp 20 B/P (MAP) 144/87 (106) Pulse Ox 90 94 O2 Delivery Room Air FiO2 28 06/10/17 06/10/17 06/10/17 06/10/17 10:40 11:40 13:00 16:00 Temp 99.3 99.3 Pulse 77 116 85 Resp 18 16 B/P (MAP) 141/78 (99) 137/74 (95) Pulse Ox 93 91 O2 Delivery Nasal Cannula Room Air Room Air O2 Flow Rate 2.00 06/10/17 16:10 O2 Delivery Nasal Cannula O2 Flow Rate 2.00 Intake and Output 06/10/17 00:00 Intake Total 1000 ml Output Total 5000 ml Balance -4000 ml Weight (Pounds): 183 Weight (Ounces): 4.0 Weight (Calculated Kilograms): 83.251057 Constitutional: No appears stated age, No AAO x 3, No apparent distress, No PERRL, No well-developed, No well-nourished, No other Respiratory: No accessory muscle use, No respiratory distress, No chest tender , No chest expansion is symmetric, No chest is bilaterally symmetric, No lungs clear to percussion, No lungs clear to auscultation, No crackles, No rhonchi, No rales, No stridor, No wheezing, No pleural rub, No other Cardiovascular: No regular rate-rhythm, No irregularly irregular, No extra beats, No parasternal heave is noted, No JVD, No edema, No bradycardia, No tachycardia, No point of maximal impulse, No cardiac thrills are palpable, No S1 and S2, No gallop/S3, No gallop/S4, No diastolic murmur, No systolic murmur, No friction rub, No click, No other Gastrointestional: No tender, No soft, No round, No distended, No pulsatile mass, No organomegaly, No guarding, No rebound, tenderness, No hernia, No mass, No audible bowel sounds, No abnormal bowel sounds, No abdominal bruits, No spleenomegaly, No other Extremities: No normal range of motion, No non-tender, No normal inspection, No pedal edema, No calf tenderness, No normal capillary refill, No pelvis stable , No calf tenderness, No inflammation, No pedal edema, No slow capillary refill , No swelling, No other, No abrasion, No clubbing, No cyanosis, No ecchymosis, No laceration, No no lower extremity edema bilateral, No significant edema, No tenderness, No wound Neurologic/Psychiatric: No ticket broker II-XII nml as tested, No no motor/sensory deficits, No alert, No normal mood/affect, No oriented x 3, No abnormal cerebellar tests, No abnormal ticket broker II-XII, No abnormal gait, No aphasia, No EOM palsy, No facial droop, No motor weakness, No sensory deficit, No depressed affect, No disoriented x 3, No other, No grossly intact, No power is 5/5 both on sides Skin: No normal color, No warm/dry, No cyanosis, No cool, No diaphoresis, No damp, No ecchymosis, No jaundice, No mottled, No pallor, No rash, No tattoos/ piercings, No ulcerations, No rash on exposed areas, No ulcerations on exposed areas, No other Results/Procedures: Labs Laboratory Tests 06/10/17 08:18: Glucometer 121H 06/10/17 09:30: White Blood Count 7.0, Red Blood Count 4.16L, Hemoglobin 12.4L, Hematocrit 38L, Mean Corpuscular Volume 92, Mean Corpuscular Hemoglobin 30, Mean Corpuscular Hemoglobin Concent 32, Red Cell Distribution Width 13.1, Platelet Count 375, Mean Platelet Volume 11.2H, Neutrophils (%) (Auto) 54, Lymphocytes (%) (Auto) 21 , Monocytes (%) (Auto) 19H, Eosinophils (%) (Auto) 6, Basophils (%) (Auto) 1, Neutrophils # (Auto) 3.7, Lymphocytes # (Auto) 1.5, Monocytes # (Auto) 1.3H, Eosinophils # (Auto) 0.4H, Basophils # (Auto) 0.1, Neutrophils % (Manual) 46, Lymphocytes % (Manual) 25, Monocytes % (Manual) 18, Eosinophils % (Manual) 4, Band Neutrophils 7, Blood Morphology Comment NORMAL, Prothrombin Time 14.1, INR Comment 1.1, Sodium Level 143, Potassium Level 3.0L, Chloride Level 89L, Carbon Dioxide Level 37H, Anion Gap 17H, Blood Urea Nitrogen 19H, Creatinine 0.79, Estimat Glomerular Filtration Rate > 60, BUN/Creatinine Ratio 24, Glucose Level 138H, Calcium Level 9.4, Phosphorus Level 3.6, Magnesium Level 1.9, Total Bilirubin 0.7, Aspartate Amino Transf (AST/SGOT) 45H, Alanine Aminotransferase ( ALT/SGPT) 37, Alkaline Phosphatase 59, Total Protein 7.5, Albumin 3.3, Prealbumin 10.1L, Triglycerides Level 141 Microbiology 06/05/17 MRSA Screen - Final, Complete MRSA not isolated A/P: Assessment/Dx: Large bowel obstruction Coronary artery disease Hypertension Hyperlipidemia Plan: Large bowel obstruction with a mass, Apple core lesion in the descending colon, suggestive of neoplasm, underwent hemicolectomy by Dr. Stark, recovering slowly. Managed by Dr. Stark Coronary artery disease, history of PTCA and stent placement May 05, 2012 using 3.5 x 22 mm Integrity stent to the right coronary artery, cardiac catheterization was done in August 2015 showing 70 percent in-stent restenosis in the midright coronary artery successful balloon angioplasty using 3.520 mm and 3.530 mm Amerge balloon with excellent results. Has 70 percent stenosis in the distal circumflex artery that is smaller artery 1.5-2 mm in diameter. Has been on aspirin and Plavix, has stopped the medication on June 01, 2017, continue to hold aspirin and Plavix at this time. History of congestive heart failure, estimated ejection fraction 50%, per 2-D echocardiogram done June 2014. on beta crow and COLUMBA inhibitor, repeat echocardiogram was done in Jul 2015 showing ejection fraction 50 percent, pulmonary artery pressure of 40 mmHg. no signs of congestive heart failure at this time History of pericarditis, improved, continue to monitor. Pulmonary hypertension, last echocardiogram was done in July 2015 showing pulmonary artery pressure of 40 mmHg. Continue to monitor Hepatitis C/ Elevated liver enzymes, better at this time, followed by Dr. Albert Cervantes of Alcoholism, educated on avoiding alcohol products, continue to monitor Hypertension, on IV Lopressor, will change to home PO meds and continue to monitor. Hyperlipidemia, has been on Lipitor as an outpatient, on hold now, continue to monitor Mild bilateral carotid stenosis, ultrasound was done in October 2016, continue to monitor Dr Briggs to continue following from tomorrow am. Thank you for your consultation. Please call me if you have any questions. Yu Honeycutt MD, FACP, FACC, FSCAI, FHRS, CCDS Interventional Cardiology Cardiac Electrophysiology Vascular Medicine and Endovascular Interventions Fernando HONEYCUTT MD Jun 10, 2017 6:06 pm
[2017-06-10 19:24] VITALS: BP 155/91
[2017-06-10] MEDS: rOPINIRole 1 MG (REQUIP) TABLET PO SCH (20:08)
[2017-06-10] MEDS: HYDROcodone/APAP 5 MG/325 MG (LORTAB) TAB PO PRN (21:19)
[2017-06-10 23:04] VITALS: BP 148/71
[2017-06-11] MEDS: RT-ALBUTEROL/IPRATROPIUM 3 ML (DUONEB) VIAL INH SCH ×4 (02:46→19:52)
[2017-06-11 03:32] VITALS: BP 134/85
[2017-06-11] MEDS: METOCLOPRAMIDE INJ 10 MG/2 ML (REGLAN) IVP SCH ×3 (05:35→17:28)
[2017-06-11] MEDS: CATHETER FLUSH 10 ML SYR IV SCH ×3 (05:35→22:02)
[2017-06-11 06:12] LABS: ALANINE AMINOTRANSFERASE 38 U/L (0-55); ALBUMIN 3.5 GM/DL (3.2-4.5); ANION GAP 13 MMOL/L (5-14); ASPARTATE AMINO TRANSFERASE 32 U/L (5-34); BILIRUBIN,TOTAL 0.8 MG/DL (0.1-1.0); BLOOD UREA NITROGEN 20 MG/DL (7-18); BUN/CREATININE RATIO 26; CALCIUM 9.1 MG/DL (8.5-10.1); CARBON DIOXIDE 33 MMOL/L (21-32); CHLORIDE 90 MMOL/L (98-107); CREATININE SERUM 0.78 MG/DL (0.60-1.30); GFR ESTIMATED > 60; GLUCOSE 126 MG/DL (70-105); MAGNESIUM 2.1 MG/DL (1.8-2.4); PHOSPHORUS 3.8 MG/DL (2.3-4.7); POTASSIUM 2.9 MMOL/L (3.6-5.0); SODIUM 136 MMOL/L (135-145)
[2017-06-11 07:51] VITALS: BP 134/84
[2017-06-11] MEDS: meTOprolol TARTRATE 25 MG (LOPRESSOR) TABLET PO SCH ×2 (08:22→20:09)
[2017-06-11] MEDS: ENALAPRIL 5 MG (VASOTEC) TAB PO SCH ×2 (08:22→20:09)
[2017-06-11] MEDS: ASPIRIN E.C. 81 MG (ECOTRIN) TAB PO SCH (08:22)
[2017-06-11] MEDS ORDERED: morphine INJ 4 MG/ML 1 ML (VIAL/SYRINGE) IVP PRN (08:30)
[2017-06-11] MEDS: HYDROcodone/APAP 5 MG/325 MG (LORTAB) TAB PO PRN ×2 (08:38→13:57)
[2017-06-11] MEDS: RT-ADVAIR HFA 115/21 MCG PER PUFF IH SCH ×2 (08:52→19:53)
--- NOTE | 2017-06-11 09:56 | Cardiology Progress Note ---
Subjective Date Seen by Provider: Jun 11, 2017 Time Seen by Provider: 09:51 Subjective/Events-last exam Patient is in bed, feeling better, eating well, no new complaint Review of Systems General: No Chills, No Night Sweats, No Fatigue, No Malaise, No Appetite, No Other HEENT: No Head Aches, No Visual Changes, No Eye Pain, No Ear Pain, No Dysphasia , No Sinus Congestion, No Post Nasal Drip, No Sore Throat, No Other Pulmonary: No Dyspnea, No Cough, No Pleuritic Chest Pain, No Other Cardiovascular: No: Chest Pain, Palpitations, Orthopnea, Paroxysmal Noc. Dyspnea, Edema, Lt Headedness, Other Objective-Cardiology Exam Last Set of Vital Signs Vital Signs 06/10/17 06/11/17 06/11/17 06/11/17 07:18 07:51 08:00 08:52 Temp 98.0 Pulse 104 Resp 22 B/P (MAP) 134/84 (101) Pulse Ox 90 O2 Delivery Room Air O2 Flow Rate 1.00 FiO2 28 Capillary Refill : Less Than 3 Seconds I&O Intake and Output 06/11/17 00:00 Intake Total 620 ml Output Total 3425 ml Balance -2805 ml Intake Oral 620 ml Output Urine Total 900 ml Gastric Drainage Total 1050 ml Other 1475 ml # Voids 3 # Bowel Movements 6 General: Alert, Oriented X3, Cooperative HEENT: Atraumatic, PERRLA Neck: Supple, No JVD, No Thyromegaly Lungs: Clear to Auscultation, Normal Air Movement Heart: Regular Rate, Normal S1, Normal S2, No Murmurs Abdomen: Normal Bowel Sounds, Soft, No Hepatosplenomegaly Extremities: No Clubbing, No Cyanosis, No Edema, Normal Pulses, No Tenderness/ Swelling Skin: No Rashes, No Breakdown, No Significant Lesion Neuro: Normal Speech, Normal Tone, Sensation Intact Psych/Mental Status: Mental Status NL, Mood NL Results Lab Laboratory Tests 06/11/17 05:40 A/P-Cardiology Admission Diagnosis Large bowel obstruction Coronary artery disease Hypertension Hyperlipidemia Assessment/Plan Large bowel obstruction with a mass, Apple core lesion in the descending colon, suggestive of neoplasm, underwent hemicolectomy by Dr. Stark, recovering well. Managed by Dr. Stark Coronary artery disease, history of PTCA and stent placement May 05, 2012 using 3.5 x 22 mm Integrity stent to the right coronary artery, cardiac catheterization was done in August 2015 showing 70 percent in-stent restenosis in the midright coronary artery successful balloon angioplasty using 3.520 mm and 3.530 mm Amerge balloon with excellent results. Has 70 percent stenosis in the distal circumflex artery that is smaller artery 1.5-2 mm in diameter. Has been on aspirin and Plavix, has stopped the medication on June 01, 2017, back on aspirin and tolerating it well History of congestive heart failure, estimated ejection fraction 50%, per 2-D echocardiogram done June 2014. on beta crow and COLUMBA inhibitor, repeat echocardiogram was done in Jul 2015 showing ejection fraction 50 percent, pulmonary artery pressure of 40 mmHg. no signs of congestive heart failure at this time Hypokalemia, replace and monitor History of pericarditis, improved, continue to monitor. Pulmonary hypertension, last echocardiogram was done in July 2015 showing pulmonary artery pressure of 40 mmHg. Continue to monitor Hepatitis C/ Elevated liver enzymes, better at this time, followed by Dr. Albert Cervantes of Alcoholism, educated on avoiding alcohol products, continue to monitor Hypertension, started on oral meds and tolerating it well Hyperlipidemia, has been on Lipitor as an outpatient, on hold now, continue to monitor Mild bilateral carotid stenosis, ultrasound was done in October 2016, continue to monitor Clinical Quality Measures DVT/VTE Risk/Contraindication: Risk Factor Score Per Nursin RFS Level Per Nursing on Admit: 4+=Very High MEAGAN JACKSON MD Jun 11, 2017 09:56
[2017-06-11] MEDS ORDERED: KCL 20 MEQ TAB (K-DUR) PO NR (10:00)
[2017-06-11] MEDS: POTASSIUM CL 10MEQ/50ML IVPB 50 ML IV SCH ×7 (10:15→15:51)
--- NOTE | 2017-06-11 11:17 | Progress Note-Standard ---
Standard Progress Note Progress Notes/Assess & Plan Date Seen by Provider: Jun 11, 2017 Time Seen by Provider: 10:55 Progress/Assessment & Plan uneventful postoperative night. Urine output adequate. Tachycardia controlled. Minimal postoperative pain. Electrolytes normal. continues to improve. Incision dry. We'll resume home medications Nausea and vomiting last night. Afebrile. Slight abdominal distention. Will use NG tube if symptoms continue. Passing flatus and having liquid bowel movements. TPN to be used nausea and vomiting resolved. Passing flatus and having liquid stools. Incision dry and abdomen soft. 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 Postoperative ileus, resolved NICOLA AHMADI MD Jun 11, 2017 11:17 am
[2017-06-11] MEDS ORDERED: POTASSIUM CL 10MEQ/50ML IVPB 50 ML IV SCH (11:30)
[2017-06-11 11:57] VITALS: BP 130/83
--- NOTE | 2017-06-11 12:02 | Progress Note-Hospitalist ---
Subjective HPI/CC On Admission Date Seen by Provider: Jun 11, 2017 Time Seen by Provider: 10:45 The patient is a 61-year-old white male who presented to the emergency room last evening with a complaint of abdominal pain and constipation. He reports that he is last bowel movement was one week ago today. He had a previous tendency towards constipation but usually had 1 bowel movement per day. He had been using laxatives, prune juice, fluid intake increase and 2 enemas but did not either vomit or have a bowel movement. He reports that he is quite distended. He believes that he had a colonoscopy 3-[address] Price in [place]. There is a past history of hepatitis C with pegylated interferon treatment about 6 years ago. Workup in the emergency room showed a bowel obstruction most suggestive of a colon mass. Subjective/Events-last exam Pt reports doing well. Was told he could eat regular diet by Dr Stark. Excited to get regular diet. Had problems with his restless leg syndrome last night and would like to restart his Requip tonight. otherwise no concerns. Objective Exam Vital Signs Vital Sign - Last 12Hours 06/05/17 06/05/17 06/05/17 06/07/17 01:00 04:00 07:37 07:55 Temp 98.9 Pulse 64 Resp 17 B/P (MAP) 146/75 (98) Pulse Ox 94 O2 Delivery Room Air O2 Flow Rate 0.00 FiO2 28 Capillary Refill : Less Than 3 Seconds General Appearance: No Apparent Distress, WD/WN Respiratory: Lungs Clear, No Respiratory Distress Cardiovascular: Regular Rate, Rhythm, No Murmur Gastrointestinal: Normal Bowel Sounds, Non Tender, Soft, Other (surgical scar clean and intact, tammy in place) Extremity: Non Tender, No Calf Tenderness, No Pedal Edema Neurologic/Psychiatric: Alert, Oriented x3 Results/Procedures Lab Laboratory Tests 06/11/17 05:40 Assessment/Plan Assessment and Plan Assess & Plan/Chief Complaint SBO due to adenocarcinoma now POD #5- compliacted by post operative ileus - NGT tube out since yesterday, now off TPN- starting regular diet CAD prior stent- cardiology consulted Cigar smoker HTN- well controlled COPD hyperglycemia with no previous history of diabetes- within goal for hospitalized patient- will trend now that diet resumed hypokalemia- replacement ordered Normocytic anemia- mild, trend likely postoperative/acute loss JACQUE MIGUEL MD Jun 11, 2017 12:02
[2017-06-11] MEDS: ONDANSETRON 4 MG/2 ML (SDV) Z0FRAN IVP PRN ×2 (13:57→18:09)
[2017-06-11] MEDS ORDERED: ENOXAPARIN 40 MG/0.4 ML (LOVENOX) SYR SC SCH ×2 (14:45→15:18)
[2017-06-11 15:41] VITALS: BP 144/84
[2017-06-11 19:24] VITALS: BP 142/80
[2017-06-11] MEDS: rOPINIRole 1 MG (REQUIP) TABLET PO SCH (20:09)
[2017-06-12] MEDS: METOCLOPRAMIDE INJ 10 MG/2 ML (REGLAN) IVP SCH ×3 (00:02→13:00)
[2017-06-12 00:30] VITALS: BP 125/79
[2017-06-12] MEDS: HYDROcodone/APAP 5 MG/325 MG (LORTAB) TAB PO PRN (01:17)
[2017-06-12] MEDS: RT-ALBUTEROL/IPRATROPIUM 3 ML (DUONEB) VIAL INH SCH ×3 (03:00→14:52)
[2017-06-12 04:20] VITALS: BP 116/78
[2017-06-12] MEDS: CATHETER FLUSH 10 ML SYR IV SCH ×2 (05:16→13:00)
[2017-06-12 05:52] LABS: ANION GAP 14 MMOL/L (5-14); BLOOD UREA NITROGEN 22 MG/DL (7-18); BUN/CREATININE RATIO 24; CALCIUM 9.4 MG/DL (8.5-10.1); CARBON DIOXIDE 27 MMOL/L (21-32); CHLORIDE 90 MMOL/L (98-107); CREATININE SERUM 0.93 MG/DL (0.60-1.30); GFR ESTIMATED > 60; GLUCOSE 137 MG/DL (70-105); POTASSIUM 3.4 MMOL/L (3.6-5.0); SODIUM 131 MMOL/L (135-145)
[2017-06-12 07:46] VITALS: BP 116/77
[2017-06-12] MEDS ORDERED: RT-ALBUINH IH (08:27)
[2017-06-12] MEDS ORDERED: Hydrocodone Bit/Acetaminophen PO (08:27)
[2017-06-12] MEDS ORDERED: ONDA4TAB8 PO (08:27)
[2017-06-12] MEDS ORDERED: NS IV 1000 ML 1,000 ML IV SCH (08:45)
[2017-06-12] MEDS: ASPIRIN E.C. 81 MG (ECOTRIN) TAB PO SCH (09:17)
[2017-06-12] MEDS: meTOprolol TARTRATE 25 MG (LOPRESSOR) TABLET PO SCH (09:17)
[2017-06-12] MEDS: CATHETER FLUSH 10 ML SYR IV PRN (09:19)
[2017-06-12] MEDS: POTASSIUM CL 10MEQ/50ML IVPB 50 ML IV SCH ×3 (09:19→11:42)
[2017-06-12] MEDS: ENALAPRIL 5 MG (VASOTEC) TAB PO SCH (09:28)
[2017-06-12] MEDS: RT-ADVAIR HFA 115/21 MCG PER PUFF IH SCH (09:34)
--- NOTE | 2017-06-12 11:45 | Discharge Summary-Hospitalist ---
Diagnosis/Chief Complaint Date of Admission Jun 04, 2017 at 02:12 Date of Discharge Discharge Date: Jun 12, 2017 Admission Diagnosis 1.colon obstruction most consistent with mass lesion. 2.history of coronary artery disease post-stenting 2 Discharge Diagnosis SBO due to adenocarcinoma now POD #6- compliacted by post operative ileus - NGT tube out since yesterday, now off TPN- starting regular diet CAD prior stent- cardiology consulted Cigar smoker HTN- well controlled COPD hyperglycemia with no previous history of diabetes- within goal for hospitalized patient- will trend now that diet resumed hypokalemia- replacement ordered Normocytic anemia- mild, trend likely postoperative/acute loss Discharge Summary Consultations Dr Ahmadi- Surgery Dr. Briggs- Cardiology Discharge Physical Examination Allergies: Coded Allergies: No Known Drug Allergies (Unverified , 01/22/11) Vitals & I&Os Vital Signs Date Time Temp Pulse Resp B/P (MAP) Pulse Ox O2 Delivery O2 Flow Rate FiO2 06/12/17 12:00 98.6 81 20 114/79 (91) 96 Room Air 06/12/17 00:30 1.50 06/10/17 07:18 28 Hospital Course Pt is a 61yoCM who presented with abd pain and was found to have an obstructing mass in colon leading to bowel obstruction. He underwent surgical removal. Recovery was complicated by post operative ileus. He necessitated NGT and TPN but ultimately was able to tolerate enteral feeding. He resumed a regular diet and was tolerating it well on the day of discharge. He felt well and was ready for discharge. Dr Ahmadi saw and will follow up with him as an outpatient. He is to keep appointment made for him with Oncology as pathology confirmed adenocarcinoma. Labs (last 24 hrs) Laboratory Tests 06/12/17 05:20: Sodium Level 131L, Potassium Level 3.4L, Chloride Level 90L, Carbon Dioxide Level 27, Anion Gap 14, Blood Urea Nitrogen 22H, Creatinine 0.93, Estimat Glomerular Filtration Rate > 60, BUN/Creatinine Ratio 24, Glucose Level 137H, Calcium Level 9.4 Microbiology 06/05/17 MRSA Screen - Final, Complete MRSA not isolated Pending Labs Laboratory Tests 06/12/17 05:20: Sodium Level 131, Potassium Level 3.4, Chloride Level 90, Carbon Dioxide Level 27, Anion Gap 14, Blood Urea Nitrogen 22, Creatinine 0.93, Estimat Glomerular Filtration Rate > 60, BUN/Creatinine Ratio 24, Glucose Level 137, Calcium Level 9.4 Discharge Home Medications: Active Scripts Active Proair Hfa (Albuterol Sulfate) 1 Puff Puff 2 Puff IH Q4H 1 PUFF = 90 MCG Zofran Odt (Ondansetron) 4 Mg Tab.rapdis 4 Mg PO Q4H [Hydrocodone Bit/Acetaminophen] Y Tab 1 Tab PO Q4H PRN Reported Clopidogrel (Clopidogrel Bisulfate) 75 Mg Tablet 75 Mg PO DAILY FILLED #30 05-07-17 -PATIENT STATES AFTER HE FINISHES THIS MONTHS SUPPLY HE WAS TOLD TO STOP TAKING IT Symbicort 160-4.5 Mcg Inhaler (Budesonide/Formoterol Fumarate) 10.2 Gm Hfa.aer.ad 2 Puff INH BID Metoprolol Tartrate 25 Mg Tablet 25 Mg PO BID Atorvastatin Calcium 10 Mg Tablet 10 Mg PO HS Aspirin EC (Aspirin) 81 Mg Tablet.dr 81 Mg PO DAILY Pantoprazole Sodium 40 Mg Tablet.dr 40 Mg PO DAILY Ropinirole HCl 2 Mg Tablet 4 Mg PO HS TAKES 2 (2MG) TABLETS Fish Oil 1,200 mg Fish Oil (Fish Oil/Dha/Epa) 1 Each Capsule 1,200 Mg PO BID Enalapril Maleate 5 Mg Tablet 5 Mg PO BID Instructions to patient/family Please see electronic discharge instructions given to patient. Clinical Quality Measures DVT/VTE Risk/Contraindication: Risk Factor Score Per Nursin RFS Level Per Nursing on Admit: 4+=Very High Copy Copies To 1: MAYNOR MATHIS MD; NICOLA AHMADI MD; MEAGAN BRIGGS MD, KATELYN M MD Jun 12, 2017 11:45
[2017-06-12 12:00] VITALS: BP 114/79
--- NOTE | 2017-06-12 12:00 | Progress Note-Standard ---
Standard Progress Note Progress Notes/Assess & Plan Date Seen by Provider: Jun 12, 2017 Time Seen by Provider: 11:25 Progress/Assessment & Plan uneventful postoperative night. Urine output adequate. Tachycardia controlled. Minimal postoperative pain. Electrolytes normal. continues to improve. Incision dry. We'll resume home medications Nausea and vomiting last night. Afebrile. Slight abdominal distention. Will use NG tube if symptoms continue. Passing flatus and having liquid bowel movements. TPN to be used nausea and vomiting resolved. Passing flatus and having liquid stools. Incision dry and abdomen soft. doing well, could be discharged today. 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
[2017-06-12 15:42] VITALS: BP 114/79
== END 2017-06-12 15:30 | disposition home or self-care (01) | DRG 329 ==
LOC: EDUNIT# 18:38 → ER 18:39 → 4TH 06-04 02:12 → ICU 06-06 11:43 → 4TH 06-07 21:07
PROVIDERS: ADMIT Family Medicine; ATTEND Family Medicine
PROC: 0DTE0ZZ Resection of Large Intestine, Open Approach (ICD-10-PCS; principal; 2017-06-06 07:20)
DX: C18.6 Malignant neoplasm of descending colon (principal); K56.691 Other complete intestinal obstruction; K55.041 Focal (segmental) acute infarction of large intestine; K74.60 Unspecified cirrhosis of liver; D62 Acute posthemorrhagic anemia; K91.89 Other postprocedural complications and disorders of digestive system; K56.7 Ileus, unspecified; E46 Unspecified protein-calorie malnutrition; E87.6 Hypokalemia; R73.9 Hyperglycemia, unspecified; K59.09 Other constipation; I25.10 Atherosclerotic heart disease of native coronary artery without angina pectoris; I10 Essential (primary) hypertension; E78.5 Hyperlipidemia, unspecified; F17.290 Nicotine dependence, other tobacco product, uncomplicated; J43.9 Emphysema, unspecified; I65.23 Occlusion and stenosis of bilateral carotid arteries; I27.20 Pulmonary hypertension, unspecified; B19.20 Unspecified viral hepatitis C without hepatic coma; F10.21 Alcohol dependence, in remission; R07.9 Chest pain, unspecified; Z79.02 Long term (current) use of antithrombotics/antiplatelets; Z79.82 Long term (current) use of aspirin; Z95.5 Presence of coronary angioplasty implant and graft; Z80.0 Family history of malignant neoplasm of digestive organs
CPT/HCPCS: 36415; 71010; 74020; 74177; 74270; 80048; 80053; 80306; 80320; 81000; 82962; 83605; 83690; 83735; 84100; 84134; 84478; 85007; 85025; 85027; 85610; 87081; 93005; 94640; 94664; 94760; 96361; 96365; 96375; 96376

== ENCOUNTER 2017-06-14 13:12 | Emergency (ER) | payer MEDICAID ==
[~2017-06-14] VITALS: Ht 167.6 cm; Wt 79.8 kg
[~2017-06-14 13:12] MED LIST changes: +ASPI-983 PO; +BUDE10.2 INH; +CLOP75TA28 PO; +Hydrocodone Bit/Acetaminophen PO; +ONDA4TAB8 PO; +PANT40TA3 PO; +ROPI2TAB4 PO; +RT-ALBUINH IH
--- OUTSIDE RECORDS SUMMARY | 2017-06-14 13:20 | XMS REPORT | Continuity of Care Document ---
Author Author [facility] Organization [facility] Address Unknown Phone Unavailable Allergies Active Description Code Type Severity Reaction Onset Reported/Identified Relationship to Patient Clinical Status Yes No Known Drug Allergies [id number] Drug Allergy Unknown N/A 01/22/2011 Medications There is no data. Problems Date Dx Coded Attending Type Code [...] INFARCT,IN 05/07/2012 Ot 414.01 CORONARY ATHEROSCLEROSIS OF [place] CORON 05/07/2012 Ot 420.90 ACUTE PERICARDITIS NOS [...] 07/29/2014 MEAGAN JACKSON MD Ot 428.0 07/29/2014 RENETTA WILSON, MEAGAN Timmons Ot 429.3 08/20/2014 RENETTA WILSON, MEAGAN Timmons Ot 272.4 08/20/2014 RENETTA WILSON, MEAGAN Timmons Ot 397.0 08/20/2014 RENETTA WILSON, MEAGAN Timmons Ot 401.9 08/20/2014 RENETTA WILSON, MEAGAN Timmons Ot 414.00 08/20/2014 RENETTA WILSON, MEAGAN Timmons Ot 424.0 08/20/2014 RENETTA WILSON, MEAGAN Timmons Ot 428.0 08/20/2014 RENETTA WILSON, MEAGAN Timmons Ot 429.3 02/02/2015 JENNIE LOPEZ Ot 272.4 [...] MD Ot I25.10 ATHSCL HEART DISEASE OF [place] CORONARY 09/02/2015 MEAGAN JACKSON MD Ot I25.2 OLD MYOCARDIAL INFARCTION 09/02/2015 MEAGAN JACKSON MD Ot I27.2 OTHER SECONDARY PULMONARY HYPERTENSION 09/02/2015 MEAGAN JACKSON MD Ot I50.9 HEART FAILURE, UNSPECIFIED 09/02/2015 MEAGAN JACKSON MD Ot R94.39 ABNORMAL RESULT OF OTHER CARDIOVASCULAR 09/02/2015 MEAGAN JACKSON MD Ot Z79.899 OTHER [facility] (CURRENT) DRUG THERAPY 09/02/2015 MEAGAN JACKSON MD [...] 10/08/2015 Ot I25.10 ATHSCL HEART DISEASE OF [place] CORONARY 10/14/2015 AMYNOR MATHIS MD Ot J44.9 CHRONIC OBSTRUCTIVE PULMONARY [...] JACKSON MD Ot 414.01 CORONARY ATHEROSCLEROSIS OF [place] CORON 04/07/2016 MEAGAN JACKSON MD Ot 428.0 CONGESTIVE HEART FAILURE NOS 04/07/2016 LETHA LORENZO MD Ot 070.54 CHRONIC HEPATITIS C W/O HEPATIC COMA 04/07/2016 LETHA LORENZO MD, Ot V58.69 OTH MED,LT,CURRENT USE 04/07/2016 AMBROSEKELSEY JOHN[place] [employer] Ot 272.4 HYPERLIPIDEMIA NEC/NOS 04/07/2016 AMBROSEKELSEY [place] [employer] Ot 401.9 HYPERTENSION NOS 04/07/2016 KELSEY AMBROSE [employer] Ot 414.00 CORON ATHEROSCLER NOS TYPE VESSEL, [...] MD Ot I25.10 ATHSCL HEART DISEASE OF [place] CORONARY 04/07/2016 MEAGAN JACKSON MD Ot I50.22 CHRONIC SYSTOLIC (CONGESTIVE) HEART FAIL 04/07/2016 MEAGAN JACKSON MD Ot R07.89 OTHER CHEST PAIN 04/07/2016 MEAGAN JACKSON MD Ot E78.2 MIXED HYPERLIPIDEMIA 04/07/2016 MEAGAN JACKSON MD Ot I10 ESSENTIAL (PRIMARY) HYPERTENSION 04/07/2016 MEAGAN JACKSNO MD Ot I25.10 ATHSCL HEART DISEASE OF [place] CORONARY 04/07/2016 MEAGAN JACKSON MD Ot I50.22 CHRONIC SYSTOLIC (CONGESTIVE) HEART FAIL 04/07/2016 MEAGAN JACKSON MD Ot R07.89 OTHER CHEST PAIN 04/07/2016 MAYNOR MATHIS MD Ot J44.9 CHRONIC OBSTRUCTIVE PULMONARY DISEASE, U 04/07/2016 Ot B19.20 UNSPECIFIED VIRAL HEPATITIS C WITHOUT HE 04/07/2016 Ot I25.10 ATHSCL HEART DISEASE OF [place] CORONARY 04/07/2016 JENNIE LOPEZ Ot E78.5 HYPERLIPIDEMIA, UNSPECIFIED 04/17/2016 JENNIE LOPEZ Ot E78.5 HYPERLIPIDEMIA, UNSPECIFIED 06/06/2017 JACQUE MIGUEL MD Ot B19.20 UNSPECIFIED VIRAL HEPATITIS C WITHOUT HE 06/06/2017 JACQUE MIGUEL MD Ot E78.5 HYPERLIPIDEMIA, UNSPECIFIED 06/06/2017 JACQUE MIGUEL MD Ot F10.21 ALCOHOL DEPENDENCE, IN REMISSION 06/06/2017 JACQUE MIGUEL MD Ot F17.290 NICOTINE DEPENDENCE, OTHER TOBACCO PRODU 06/06/2017 JACQUE MIGUEL MD Ot I10 ESSENTIAL (PRIMARY) HYPERTENSION 06/06/2017 JACQUE MIGUEL MD Ot I25.10 ATHSCL HEART DISEASE OF [place] CORONARY 06/06/2017 JACQUE MIGUEL MD Ot I27.20 PULMONARY HYPERTENSION, UNSPECIFIED 06/06/2017 JACQUE MIGUEL MD Ot I65.23 OCCLUSION AND STENOSIS OF BILATERAL LABOY 06/06/2017 JACQUE MIGUEL MD Ot J43.9 EMPHYSEMA, UNSPECIFIED 06/06/2017 JACQUE MIGUEL MD Ot K56.691 OTHER COMPLETE INTESTINAL OBSTRUCTION 06/06/2017 JACQUE MIGUEL MD Ot K59.09 OTHER CONSTIPATION 06/06/2017 JACQUE MIGUEL MD Ot K63.9 DISEASE OF INTESTINE, UNSPECIFIED 06/06/2017 JACQUE MIGUEL MD Ot R07.9 CHEST PAIN, UNSPECIFIED 06/06/2017 JACQUE MIGUEL MD Ot Z79.02 [employer] (CURRENT) USE OF ANTITHROMBOTI 06/06/2017 JACQUE MIGUEL MD Ot Z79.82 [facility] (CURRENT) USE OF ASPIRIN 06/06/2017 JACQUE MIGUEL MD Ot Z80.0 FAMILY HISTORY OF MALIGNANT NEOPLASM OF 06/06/2017 JACQUE MIGUEL MD Ot Z95.5 PRESENCE OF CORONARY ANGIOPLASTY IMPLANT 06/07/2017 JACQUE MIGUEL MD Ot B19.20 UNSPECIFIED VIRAL HEPATITIS C WITHOUT HE 06/07/2017 JACQUE MIGUEL MD Ot E78.5 HYPERLIPIDEMIA, UNSPECIFIED 06/07/2017 JACQUE MIGUEL MD Ot F10.21 ALCOHOL DEPENDENCE, IN REMISSION 06/07/2017 JACQUE MIGUEL MD Ot F17.290 NICOTINE DEPENDENCE, OTHER TOBACCO PRODU 06/07/2017 JACQUE MIGUEL MD Ot I10 ESSENTIAL (PRIMARY) HYPERTENSION 06/07/2017 JACQUE MIGUEL MD Ot I25.10 ATHSCL HEART DISEASE OF [place] CORONARY 06/07/2017 JACQUE MIGUEL MD Ot I27.20 PULMONARY HYPERTENSION, UNSPECIFIED 06/07/2017 JACQUE MIGUEL MD Ot I65.23 OCCLUSION AND STENOSIS OF BILATERAL [place] 06/07/2017 JACQUE MIGUEL MD, Ot J43.9 EMPHYSEMA, UNSPECIFIED 06/07/2017 JACQUE MIGUEL MD Ot K56.691 OTHER COMPLETE INTESTINAL OBSTRUCTION 06/07/2017 JACQUE MIGUEL MD Ot K59.09 OTHER CONSTIPATION 06/07/2017 JACQUE MIGUEL MD Ot K63.9 DISEASE OF INTESTINE, UNSPECIFIED 06/07/2017 JACQUE MIGUEL MD Ot R07.9 CHEST PAIN, UNSPECIFIED 06/07/2017 JACQUE MIGUEL MD Ot Z79.02 [employer] (CURRENT) USE OF ANTITHROMBOTI 06/07/2017 JACQUE MIGUEL MD, Ot Z79.82 [facility] (CURRENT) USE OF ASPIRIN 06/07/2017 JACQUE MIGUEL MD Ot Z80.0 FAMILY HISTORY OF MALIGNANT NEOPLASM OF 06/07/2017 JACQUE MIGUEL MD Ot Z95.5 PRESENCE OF CORONARY ANGIOPLASTY IMPLANT 06/07/2017 JACQUE MIGUEL MD Ot B19.20 UNSPECIFIED VIRAL HEPATITIS C WITHOUT HE 06/07/2017 JACQUE MIGUEL MD Ot E78.5 HYPERLIPIDEMIA, UNSPECIFIED 06/07/2017 JACQUE MIGUEL MD Ot F10.21 ALCOHOL DEPENDENCE, IN REMISSION 06/07/2017 JACQUE MIGUEL MD Ot F17.290 NICOTINE DEPENDENCE, OTHER TOBACCO PRODU 06/07/2017 JACQUE MIGUEL MD Ot I10 ESSENTIAL (PRIMARY) HYPERTENSION 06/07/2017 JACQUE MIGUEL MD Ot I25.10 ATHSCL HEART DISEASE OF [place] CORONARY 06/07/2017 JACQUE MIGUEL MD Ot I27.20 PULMONARY HYPERTENSION, UNSPECIFIED 06/07/2017 JACQUE MIGUEL MD Ot I65.23 OCCLUSION AND STENOSIS OF BILATERAL [place] 06/07/2017 JACQUE MIGUEL MD Ot J43.9 EMPHYSEMA, UNSPECIFIED 06/07/2017 JACQUE MIGUEL MD Ot K56.691 OTHER COMPLETE INTESTINAL OBSTRUCTION 06/07/2017 JACQUE MIGUEL MD Ot K59.09 OTHER CONSTIPATION 06/07/2017 JACQUE MIGUEL MD Ot K63.9 DISEASE OF INTESTINE, UNSPECIFIED 06/07/2017 JACQUE MIGUEL MD, Ot R07.9 CHEST PAIN, UNSPECIFIED 06/07/2017 JACQUE MIGUEL MD, Ot Z79.02 [employer] (CURRENT) USE OF ANTITHROMBOTI 06/07/2017 JACQUE MIGUEL MD Ot Z79.82 [facility] (CURRENT) USE OF ASPIRIN 06/07/2017 JACQUE MIGUEL MD Ot Z80.0 FAMILY HISTORY OF MALIGNANT NEOPLASM OF 06/07/2017 JACQUE MIGUEL MD Ot Z95.5 PRESENCE OF CORONARY ANGIOPLASTY IMPLANT 06/07/2017 JACQUE MIGUEL MD Ot B19.20 UNSPECIFIED VIRAL HEPATITIS C WITHOUT HE 06/07/2017 JACQUE MIGUEL MD Ot E78.5 HYPERLIPIDEMIA, UNSPECIFIED 06/07/2017 JACQUE MIGUEL MD Ot F10.21 ALCOHOL DEPENDENCE, IN REMISSION 06/07/2017 JACQUE MIGUEL MD Ot F17.290 NICOTINE DEPENDENCE, OTHER TOBACCO PRODU 06/07/2017 JACQUE MIGUEL MD Ot I10 ESSENTIAL (PRIMARY) HYPERTENSION 06/07/2017 JACQUE MIGUEL MD Ot I25.10 ATHSCL HEART DISEASE OF [place] CORONARY 06/07/2017 JACQUE MIGUEL MD Ot I27.20 PULMONARY HYPERTENSION, UNSPECIFIED 06/07/2017 JACQUE MIGUEL MD Ot I65.23 OCCLUSION AND STENOSIS OF BILATERAL [place] 06/07/2017 JACQUE MIGUEL MD Ot J43.9 EMPHYSEMA, UNSPECIFIED 06/07/2017 JACQUE MIGUEL MD Ot K56.691 OTHER COMPLETE INTESTINAL OBSTRUCTION 06/07/2017 JACQUE MIGUEL MD Ot K59.09 OTHER CONSTIPATION 06/07/2017 JACQUE MIGUEL MD Ot K63.9 DISEASE OF INTESTINE, UNSPECIFIED 06/07/2017 JACQUE MIGUEL MD Ot R07.9 CHEST PAIN, UNSPECIFIED 06/07/2017 JACQUE MIGUEL MD Ot Z79.02 [facility] (CURRENT) USE OF ANTITHROMBOTI 06/07/2017 JACQUE MIGUEL MD Ot Z79.82 [facility] (CURRENT) USE OF ASPIRIN 06/07/2017 JACQUE MIGUEL MD Ot Z80.0 FAMILY HISTORY OF MALIGNANT NEOPLASM OF 06/07/2017 JACQUE MIGUEL MD, Ot Z95.5 PRESENCE OF CORONARY ANGIOPLASTY IMPLANT 06/08/2017 JACQUE MIGUEL MD Ot B19.20 UNSPECIFIED VIRAL HEPATITIS C WITHOUT HE 06/08/2017 JACQUE MIGUEL MD Ot E78.5 HYPERLIPIDEMIA, UNSPECIFIED 06/08/2017 JACQUE MIGUEL MD Ot F10.21 ALCOHOL DEPENDENCE, IN REMISSION 06/08/2017 JACQUE MIGUEL MD Ot F17.290 NICOTINE DEPENDENCE, OTHER TOBACCO PRODU 06/08/2017 JACQUE MIGUEL MD Ot I10 ESSENTIAL (PRIMARY) HYPERTENSION 06/08/2017 JACQUE MIGUEL MD, Ot I25.10 ATHSCL HEART DISEASE OF [place] CORONARY 06/08/2017 JACQUE MIGUEL MD, Ot I27.20 PULMONARY HYPERTENSION, UNSPECIFIED 06/08/2017 JACQUE MIGUEL MD Ot I65.23 OCCLUSION AND STENOSIS OF BILATERAL LABOY 06/08/2017 JACQUE MIGUEL MD Ot J43.9 EMPHYSEMA, UNSPECIFIED 06/08/2017 JACQUE MIGUEL MD Ot K56.691 OTHER COMPLETE INTESTINAL OBSTRUCTION 06/08/2017 JACQUE MIGUEL MD Ot K59.09 OTHER CONSTIPATION 06/08/2017 JACQUE MIGUEL MD Ot K63.9 DISEASE OF INTESTINE, UNSPECIFIED 06/08/2017 JACQUE MIGUEL MD Ot R07.9 CHEST PAIN, UNSPECIFIED 06/08/2017 JACQUE MIGUEL MD Ot Z79.02 [facility] (CURRENT) USE OF ANTITHROMBOTI 06/08/2017 JACQUE MIGUEL MD Ot Z79.82 [employer] (CURRENT) USE OF ASPIRIN 06/08/2017 JACQUE MIGUEL MD Ot Z80.0 FAMILY HISTORY OF MALIGNANT NEOPLASM OF 06/08/2017 JACQUE MIGUEL MD Ot Z95.5 PRESENCE OF CORONARY ANGIOPLASTY IMPLANT 06/10/2017 JACQUE MIGUEL MD, Ot B19.20 UNSPECIFIED VIRAL HEPATITIS C WITHOUT HE 06/10/2017 JACQUE MIGUEL MD Ot E78.5 HYPERLIPIDEMIA, UNSPECIFIED 06/10/2017 JACQUE MIGUEL MD Ot F10.21 ALCOHOL DEPENDENCE, IN REMISSION 06/10/2017 JACQUE MIGUEL MD, Ot F17.290 NICOTINE DEPENDENCE, OTHER TOBACCO PRODU 06/10/2017 JACQUE MIGUEL MD Ot I10 ESSENTIAL (PRIMARY) HYPERTENSION 06/10/2017 JACQUE MIGUEL MD, Ot I25.10 ATHSCL HEART DISEASE OF [place] CORONARY 06/10/2017 JACQUE MIGUEL MD Ot I27.20 PULMONARY HYPERTENSION, UNSPECIFIED 06/10/2017 JACQUE MIGUEL MD Ot I65.23 OCCLUSION AND STENOSIS OF BILATERAL LABOY 06/10/2017 JACQUE MIGUEL MD Ot J43.9 EMPHYSEMA, UNSPECIFIED 06/10/2017 JACQUE MIGUEL MD Ot K56.691 OTHER COMPLETE INTESTINAL OBSTRUCTION 06/10/2017 JACQUE MIGUEL MD Ot K59.09 OTHER CONSTIPATION 06/10/2017 JACQUE MIGUEL MD Ot K63.9 DISEASE OF INTESTINE, UNSPECIFIED 06/10/2017 JACQUE MIGUEL MD Ot R07.9 CHEST PAIN, UNSPECIFIED 06/10/2017 JACQUE MIGUEL MD Ot Z79.02 [employer] (CURRENT) USE OF ANTITHROMBOTI 06/10/2017 JACQUE MIGUEL MD Ot Z79.82 [facility] (CURRENT) USE OF ASPIRIN 06/10/2017 JACQUE MIGUEL MD Ot Z80.0 FAMILY HISTORY OF MALIGNANT NEOPLASM OF 06/10/2017 JACQUE MIGUEL MD Ot Z95.5 PRESENCE OF CORONARY ANGIOPLASTY IMPLANT 06/12/2017 JACQUE MIGUEL MD Ot B19.20 UNSPECIFIED VIRAL HEPATITIS C WITHOUT HE 06/12/2017 JACQUE MIGUEL MD Ot E78.5 HYPERLIPIDEMIA, UNSPECIFIED 06/12/2017 JACQUE MIGUEL MD Ot F10.21 ALCOHOL DEPENDENCE, IN REMISSION 06/12/2017 JACQUE MIGUEL MD Ot F17.290 NICOTINE DEPENDENCE, OTHER TOBACCO PRODU 06/12/2017 JACQUE MIGUEL MD Ot I10 ESSENTIAL (PRIMARY) HYPERTENSION 06/12/2017 JACQUE MIGUEL MD Ot I25.10 ATHSCL HEART DISEASE OF [place] CORONARY 06/12/2017 JACQUE MIGUEL MD Ot I27.20 PULMONARY HYPERTENSION, UNSPECIFIED 06/12/2017 JACQUE MIGUEL MD Ot I65.23 OCCLUSION AND STENOSIS OF BILATERAL LABOY 06/12/2017 JACQUE MIGUEL MD, Ot J43.9 EMPHYSEMA, UNSPECIFIED 06/12/2017 JACQUE MIGUEL MD, Ot K56.691 OTHER COMPLETE INTESTINAL OBSTRUCTION 06/12/2017 JACQUE MIGUEL MD, Ot K59.09 OTHER CONSTIPATION 06/12/2017 JACQUE MIGUEL MD, Ot K63.9 DISEASE OF INTESTINE, UNSPECIFIED 06/12/2017 JACQUE MIGUEL MD, Ot R07.9 CHEST PAIN, UNSPECIFIED 06/12/2017 JACQUE MIGUEL MD, Ot Z79.02 [employer] (CURRENT) USE OF ANTITHROMBOTI 06/12/2017 JACQUE MIGUEL MD, Ot Z79.82 [facility] (CURRENT) USE OF ASPIRIN 06/12/2017 JACQUE MIGUEL MD, Ot Z80.0 FAMILY HISTORY OF MALIGNANT NEOPLASM OF 06/12/2017 JACQUE MIGUEL MD, Ot Z95.5 PRESENCE OF CORONARY ANGIOPLASTY IMPLANT Procedures Code Description Performed By Performed On 00.40 05/05/2012 00.45 05/05/2012 00.66 05/05/2012 36.06 05/05/2012 37.22 05/05/2012 88.53 05/05/2012 88.56 05/05/2012 Results Test Result Range Complete urinalysis with reflex to culture - 06/03/17 19:55 Urine color determination YELLOW NRG Urine clarity determination CLEAR NRG Urine pH measurement by test strip 5 5-9 Specific gravity of urine by test strip 1.025 1.016- 1.022 Urine protein assay by test strip, semi-quantitative 2+ NEGATIVE Urine glucose detection by automated test strip NEGATIVE NEGATIVE Erythrocytes detection in urine sediment by light microscopy NEGATIVE NEGATIVE Urine ketones detection by automated test strip 1+ NEGATIVE Urine nitrite detection by test strip NEGATIVE NEGATIVE Urine total bilirubin detection by test strip NEGATIVE NEGATIVE Urine urobilinogen measurement by automated test strip (mass/volume) NORMAL NORMAL Urine leukocyte esterase detection by dipstick 1+ NEGATIVE Automated urine sediment erythrocyte count by microscopy (number/high power field) NONE NRG Automated urine sediment leukocyte count by microscopy (number/high power field ) RARE NRG Bacteria detection in urine sediment by light microscopy NEGATIVE NRG Crystals detection in urine sediment by light microscopy NONE NRG Casts detection in urine sediment by light microscopy NONE NRG Mucus detection in urine sediment by light microscopy LARGE NRG Complete urinalysis with reflex to culture NO NRG Urine drug screening test - 06/03/17 19:55 Urine phencyclidine detection by screening method NEGATIVE NEGATIVE Urine benzodiazepines detection by screening method NEGATIVE NEGATIVE Urine cocaine detection NEGATIVE NEGATIVE Urine amphetamines detection by screening method NEGATIVE NEGATIVE Urine methamphetamine detection by screening method NEGATIVE NEGATIVE Urine cannabinoids detection by screening method POSITIVE NEGATIVE Urine opiates detection by screening method NEGATIVE NEGATIVE Urine barbiturates detection NEGATIVE NEGATIVE Screening urine tricyclic antidepressants detection NEGATIVE NEGATIVE Urine methadone detection by screening method NEGATIVE NEGATIVE Urine oxycodone detection NEGATIVE NEGATIVE Urine propoxyphene detection NEGATIVE NEGATIVE Complete blood count (CBC) with automated white blood cell (WBC) differential - 06/03/17 20:00 Blood leukocytes automated count (number/volume) 14.9 10*3/uL 4.3-11.0 Blood erythrocytes automated count (number/volume) 4.99 10*6/uL 4.35-5.85 Venous blood hemoglobin measurement (mass/volume) 15.1 g/dL 13.3-17.7 Blood hematocrit (volume fraction) 44 % 40-54 Automated erythrocyte mean corpuscular volume 88 [foz_us] 80-99 Automated erythrocyte mean corpuscular hemoglobin (mass per erythrocyte) 30 pg 25-34 Automated erythrocyte mean corpuscular hemoglobin concentration measurement ( mass/volume) 34 g/dL 32-36 Automated erythrocyte distribution width ratio 13.1 % 10.0-14.5 Automated blood platelet count (count/volume) 326 10*3/uL 130-400 Automated blood platelet mean volume measurement 11.4 [foz_us] 7.4-10.4 Automated blood neutrophils/100 leukocytes 81 % 42-75 Automated blood lymphocytes/100 leukocytes 13 % 12-44 Blood monocytes/100 leukocytes 5 % 0-12 Automated blood eosinophils/100 leukocytes 0 % 0-10 Automated blood basophils/100 leukocytes 0 % 0-10 Blood neutrophils automated count (number/volume) 12.0 10*3 1.8-7.8 Blood lymphocytes automated count (number/volume) 2.0 10*3 1.0-4.0 Blood monocytes automated count (number/volume) 0.8 10*3 0.0-1.0 Automated eosinophil count 0.1 10*3/uL 0.0-0.3 Automated blood basophil count (count/volume) 0.1 10*3/uL 0.0-0.1 Blood lactic acid measurement (moles/volume) - 06/03/17 20:00 Blood lactic acid measurement (moles/volume) 1.98 mmol/L 0.50-2.00 Comprehensive metabolic panel - 06/03/17 20:00 Serum or plasma sodium measurement (moles/volume) 137 mmol/L 135-145 Serum or plasma potassium measurement (moles/volume) 3.1 mmol/L 3.6-5.0 Serum or plasma chloride measurement (moles/volume) 102 mmol/L 98-107 Carbon dioxide 21 mmol/L 21-32 Serum or plasma anion gap determination (moles/volume) 14 mmol/L 5-14 Serum or plasma urea nitrogen measurement (mass/volume) 11 mg/dL 7-18 Serum or plasma creatinine measurement (mass/volume) 0.81 mg/dL 0.60-1.30 Serum or plasma urea nitrogen/creatinine mass ratio 14 NRG Serum or plasma creatinine measurement with calculation of estimated glomerular filtration rate > NRG Serum or plasma glucose measurement (mass/volume) 119 mg/dL 70-105 Serum or plasma calcium measurement (mass/volume) 8.8 mg/dL 8.5-10.1 Serum or plasma total bilirubin measurement (mass/volume) 0.6 mg/dL 0.1-1.0 Serum or plasma alkaline phosphatase measurement (enzymatic activity/volume) 93 U/L 40-136 Serum or plasma aspartate aminotransferase measurement (enzymatic activity/ volume) 25 U/L 5-34 Serum or plasma alanine aminotransferase measurement (enzymatic activity/volume ) 32 U/L 0-55 Serum or plasma protein measurement (mass/volume) 8.9 g/dL 6.4-8.2 Serum or plasma albumin measurement (mass/volume) 4.1 g/dL 3.2-4.5 Magnesium - 06/03/17 20:00 Magnesium 2.2 mg/dL 1.8-2.4 Lipase - 06/03/17 20:00 Lipase 11 U/L 8-78 Serum or plasma ethanol measurement (mass/volume) - 06/03/17 20:00 Serum or plasma ethanol measurement (mass/volume) < mg/dL <10 Blood manual differential performed detection - 06/03/17 20:00 Blood monocytes/100 leukocytes 4 % NRG Manual blood segmented neutrophils/100 leukocytes 82 % NRG Blood band neutrophils/100 leukocytes 3 % NRG Manual blood lymphocytes/100 leukocytes 10 % NRG Manual eosinophils/100 leukocytes in nose 1 % NRG Manual blood basophils/100 leukocytes 0 % NRG Blood erythrocyte morphology finding identification NORMAL NR Complete blood count (CBC) with automated white blood cell (WBC) differential - 06/04/17 05:53 Blood leukocytes automated count (number/volume) 12.9 10*3/uL 4.3-11.0 Blood erythrocytes automated count (number/volume) 4.60 10*6/uL 4.35-5.85 Venous blood hemoglobin measurement (mass/volume) 13.8 g/dL 13.3-17.7 Blood hematocrit (volume fraction) 41 % 40-54 Automated erythrocyte mean corpuscular volume 89 [foz_us] 80-99 Automated erythrocyte mean corpuscular hemoglobin (mass per erythrocyte) 30 pg 25-34 Automated erythrocyte mean corpuscular hemoglobin concentration measurement ( mass/volume) 34 g/dL 32-36 Automated erythrocyte distribution width ratio 13.2 % 10.0-14.5 Automated blood platelet count (count/volume) 276 10*3/uL 130-400 Automated blood platelet mean volume measurement 11.4 [foz_us] 7.4-10.4 Automated blood neutrophils/100 leukocytes 72 % 42-75 Automated blood lymphocytes/100 leukocytes 19 % 12-44 Blood monocytes/100 leukocytes 9 % 0-12 Automated blood eosinophils/100 leukocytes 1 % 0-10 Automated blood basophils/100 leukocytes 0 % 0-10 Blood neutrophils automated count (number/volume) 9.3 10*3 1.8-7.8 Blood lymphocytes automated count (number/volume) 2.4 10*3 1.0-4.0 Blood monocytes automated count (number/volume) 1.1 10*3 0.0-1.0 Automated eosinophil count 0.1 10*3/uL 0.0-0.3 Automated blood basophil count (count/volume) 0.1 10*3/uL 0.0-0.1 Comprehensive metabolic panel - 06/04/17 05:53 Serum or plasma sodium measurement (moles/volume) 135 mmol/L 135-145 Serum or plasma potassium measurement (moles/volume) 3.7 mmol/L 3.6-5.0 Serum or plasma chloride measurement (moles/volume) 104 mmol/L 98-107 Carbon dioxide 21 mmol/L 21-32 Serum or plasma anion gap determination (moles/volume) 10 mmol/L 5-14 Serum or plasma urea nitrogen measurement (mass/volume) 9 mg/dL 7-18 Serum or plasma creatinine measurement (mass/volume) 0.73 mg/dL 0.60-1.30 Serum or plasma urea nitrogen/creatinine mass ratio 12 NRG Serum or plasma creatinine measurement with calculation of estimated glomerular filtration rate > NRG Serum or plasma glucose measurement (mass/volume) 118 mg/dL 70-105 Serum or plasma calcium measurement (mass/volume) 8.5 mg/dL 8.5-10.1 Serum or plasma total bilirubin measurement (mass/volume) 0.6 mg/dL 0.1-1.0 Serum or plasma alkaline phosphatase measurement (enzymatic activity/volume) 78 U/L 40-136 Serum or plasma aspartate aminotransferase measurement (enzymatic activity/ volume) 22 U/L 5-34 Serum or plasma alanine aminotransferase measurement (enzymatic activity/volume ) 27 U/L 0-55 Serum or plasma protein measurement (mass/volume) 7.8 g/dL 6.4-8.2 Serum or plasma albumin measurement (mass/volume) 3.6 g/dL 3.2-4.5 Methicillin resistant Staphylococcus aureus (MRSA) screening culture - 22:10 Methicillin resistant Staphylococcus aureus (MRSA) screening culture NEG NRG Capillary blood glucose measurement by glucometer (mass/volume) - 06/07/17 01: 19 Capillary blood glucose measurement by glucometer (mass/volume) 112 mg/dL 70-110 Complete blood count (CBC) with automated white blood cell (WBC) differential - 06/07/17 04:52 Blood leukocytes automated count (number/volume) 13.7 10*3/uL 4.3-11.0 Blood erythrocytes automated count (number/volume) 3.71 10*6/uL 4.35-5.85 Venous blood hemoglobin measurement (mass/volume) 11.4 g/dL 13.3-17.7 Blood hematocrit (volume fraction) 34 % 40-54 Automated erythrocyte mean corpuscular volume 93 [foz_us] 80-99 Automated erythrocyte mean corpuscular hemoglobin (mass per erythrocyte) 31 pg 25-34 Automated erythrocyte mean corpuscular hemoglobin concentration measurement ( mass/volume) 33 g/dL 32-36 Automated erythrocyte distribution width ratio 12.9 % 10.0-14.5 Automated blood platelet count (count/volume) 278 10*3/uL 130-400 Automated blood platelet mean volume measurement 11.1 [foz_us] 7.4-10.4 Automated blood neutrophils/100 leukocytes 77 % 42-75 Automated blood lymphocytes/100 leukocytes 12 % 12-44 Blood monocytes/100 leukocytes 12 % 0-12 Automated blood eosinophils/100 leukocytes 0 % 0-10 Automated blood basophils/100 leukocytes 0 % 0-10 Blood neutrophils automated count (number/volume) 10.5 10*3 1.8-7.8 Blood lymphocytes automated count (number/volume) 1.6 10*3 1.0-4.0 Blood monocytes automated count (number/volume) 1.6 10*3 0.0-1.0 Automated eosinophil count 0.0 10*3/uL 0.0-0.3 Automated blood basophil count (count/volume) 0.0 10*3/uL 0.0-0.1 Serum or plasma phosphate measurement (mass/volume) - 06/07/17 04:52 Serum or plasma phosphate measurement (mass/volume) 3.3 mg/dL 2.3-4.7 Magnesium - 06/07/17 04:52 Magnesium 1.9 mg/dL 1.8-2.4 Comprehensive metabolic panel - 06/07/17 04:52 Serum or plasma sodium measurement (moles/volume) 136 mmol/L 135-145 Serum or plasma potassium measurement (moles/volume) 4.4 mmol/L 3.6-5.0 Serum or plasma chloride measurement (moles/volume) 100 mmol/L 98-107 Carbon dioxide 26 mmol/L 21-32 Serum or plasma anion gap determination (moles/volume) 10 mmol/L 5-14 Serum or plasma urea nitrogen measurement (mass/volume) 10 mg/dL 7-18 Serum or plasma creatinine measurement (mass/volume) 0.70 mg/dL 0.60-1.30 Serum or plasma urea nitrogen/creatinine mass ratio 14 NRG Serum or plasma creatinine measurement with calculation of estimated glomerular filtration rate > NRG Serum or plasma glucose measurement (mass/volume) 110 mg/dL 70-105 Serum or plasma calcium measurement (mass/volume) 8.1 mg/dL 8.5-10.1 Serum or plasma total bilirubin measurement (mass/volume) 0.5 mg/dL 0.1-1.0 Serum or plasma alkaline phosphatase measurement (enzymatic activity/volume) 53 U/L 40-136 Serum or plasma aspartate aminotransferase measurement (enzymatic activity/ volume) 26 U/L 5-34 Serum or plasma alanine aminotransferase measurement (enzymatic activity/volume ) 21 U/L 0-55 Serum or plasma protein measurement (mass/volume) 5.4 g/dL 6.4-8.2 Serum or plasma albumin measurement (mass/volume) 3.0 g/dL 3.2-4.5 Complete blood count (CBC) with automated white blood cell (WBC) differential - 06/08/17 09:37 Blood leukocytes automated count (number/volume) 12.1 10*3/uL 4.3-11.0 Blood erythrocytes automated count (number/volume) 3.97 10*6/uL 4.35-5.85 Venous blood hemoglobin measurement (mass/volume) 12.1 g/dL 13.3-17.7 Blood hematocrit (volume fraction) 37 % 40-54 Automated erythrocyte mean corpuscular volume 93 [foz_us] 80-99 Automated erythrocyte mean corpuscular hemoglobin (mass per erythrocyte) 31 pg 25-34 Automated erythrocyte mean corpuscular hemoglobin concentration measurement ( mass/volume) 33 g/dL 32-36 Automated erythrocyte distribution width ratio 13.0 % 10.0-14.5 Automated blood platelet count (count/volume) 311 10*3/uL 130-400 Automated blood platelet mean volume measurement 10.9 [foz_us] 7.4-10.4 Automated blood neutrophils/100 leukocytes 72 % 42-75 Automated blood lymphocytes/100 leukocytes 13 % 12-44 Blood monocytes/100 leukocytes 10 % 0-12 Automated blood eosinophils/100 leukocytes 5 % 0-10 Automated blood basophils/100 leukocytes 1 % 0-10 Blood neutrophils automated count (number/volume) 8.6 10*3 1.8-7.8 Blood lymphocytes automated count (number/volume) 1.5 10*3 1.0-4.0 Blood monocytes automated count (number/volume) 1.2 10*3 0.0-1.0 Automated eosinophil count 0.7 10*3/uL 0.0-0.3 Automated blood basophil count (count/volume) 0.1 10*3/uL 0.0-0.1 Comprehensive metabolic panel - 06/08/17 09:37 Serum or plasma sodium measurement (moles/volume) 135 mmol/L 135-145 Serum or plasma potassium measurement (moles/volume) 3.8 mmol/L 3.6-5.0 Serum or plasma chloride measurement (moles/volume) 101 mmol/L 98-107 Carbon dioxide 25 mmol/L 21-32 Serum or plasma anion gap determination (moles/volume) 9 mmol/L 5-14 Serum or plasma urea nitrogen measurement (mass/volume) 8 mg/dL 7-18 Serum or plasma creatinine measurement (mass/volume) 0.63 mg/dL 0.60-1.30 Serum or plasma urea nitrogen/creatinine mass ratio 13 NRG Serum or plasma creatinine measurement with calculation of estimated glomerular filtration rate > NRG Serum or plasma glucose measurement (mass/volume) 143 mg/dL 70-105 Serum or plasma calcium measurement (mass/volume) 7.9 mg/dL 8.5-10.1 Serum or plasma total bilirubin measurement (mass/volume) 0.5 mg/dL 0.1-1.0 Serum or plasma alkaline phosphatase measurement (enzymatic activity/volume) 52 U/L 40-136 Serum or plasma aspartate aminotransferase measurement (enzymatic activity/ volume) 32 U/L 5-34 Serum or plasma alanine aminotransferase measurement (enzymatic activity/volume ) 24 U/L 0-55 Serum or plasma protein measurement (mass/volume) 6.5 g/dL 6.4-8.2 Serum or plasma albumin measurement (mass/volume) 2.8 g/dL 3.2-4.5 Automated blood complete blood count (hemogram) panel - 06/09/17 08:59 Blood leukocytes automated count (number/volume) 6.1 10*3/uL 4.3-11.0 Blood erythrocytes automated count (number/volume) 4.41 10*6/uL 4.35-5.85 Venous blood hemoglobin measurement (mass/volume) 13.2 g/dL 13.3-17.7 Blood hematocrit (volume fraction) 40 % 40-54 Automated erythrocyte mean corpuscular volume 90 [foz_us] 80-99 Automated erythrocyte mean corpuscular hemoglobin (mass per erythrocyte) 30 pg 25-34 Automated erythrocyte mean corpuscular hemoglobin concentration measurement ( mass/volume) 33 g/dL 32-36 Automated erythrocyte distribution width ratio 12.7 % 10.0-14.5 Automated blood platelet count (count/volume) 395 10*3/uL 130-400 Automated blood platelet mean volume measurement 10.6 [foz_us] 7.4-10.4 PT panel in platelet poor plasma by coagulation assay - 06/09/17 08:59 Prothrombin time (PT) in platelet poor plasma by coagulation assay 14.4 s 12.2-14.7 INR in platelet poor plasma or blood by coagulation assay 1.1 0.8-1.4 Comprehensive metabolic panel - 06/09/17 08:59 Serum or plasma sodium measurement (moles/volume) 139 mmol/L 135-145 Serum or plasma potassium measurement (moles/volume) 3.7 mmol/L 3.6-5.0 Serum or plasma chloride measurement (moles/volume) 94 mmol/L 98-107 Carbon dioxide 32 mmol/L 21-32 Serum or plasma anion gap determination (moles/volume) 13 mmol/L 5-14 Serum or plasma urea nitrogen measurement (mass/volume) 13 mg/dL 7-18 Serum or plasma creatinine measurement (mass/volume) 0.72 mg/dL 0.60-1.30 Serum or plasma urea nitrogen/creatinine mass ratio 18 NRG Serum or plasma creatinine measurement with calculation of estimated glomerular filtration rate > NRG Serum or plasma glucose measurement (mass/volume) 157 mg/dL 70-105 Serum or plasma calcium measurement (mass/volume) 9.6 mg/dL 8.5-10.1 Serum or plasma total bilirubin measurement (mass/volume) 1.1 mg/dL 0.1-1.0 Serum or plasma alkaline phosphatase measurement (enzymatic activity/volume) 56 U/L 40-136 Serum or plasma aspartate aminotransferase measurement (enzymatic activity/ volume) 36 U/L 5-34 Serum or plasma alanine aminotransferase measurement (enzymatic activity/volume ) 36 U/L 0-55 Serum or plasma protein measurement (mass/volume) 7.9 g/dL 6.4-8.2 Serum or plasma albumin measurement (mass/volume) 3.5 g/dL 3.2-4.5 Serum or plasma phosphate measurement (mass/volume) - 06/09/17 08:59 Serum or plasma phosphate measurement (mass/volume) 3.6 mg/dL 2.3-4.7 Magnesium - 06/09/17 08:59 Magnesium 2.0 mg/dL 1.8-2.4 Serum or plasma triglyceride measurement (mass/volume) - 06/09/17 08:59 Serum or plasma triglyceride measurement (mass/volume) 114 mg/dL <150 Serum or plasma lithium measurement (moles/volume) - 06/09/17 08:59 Serum or plasma prealbumin measurement (mass/volume) 9.4 mg/dL 18.0-35.7 Capillary blood glucose measurement by glucometer (mass/volume) - 06/10/17 08: 18 Capillary blood glucose measurement by glucometer (mass/volume) 121 mg/dL 70-110 Complete blood count (CBC) with automated white blood cell (WBC) differential - 06/10/17 09:30 Blood leukocytes automated count (number/volume) 7.0 10*3/uL 4.3-11.0 Blood erythrocytes automated count (number/volume) 4.16 10*6/uL 4.35-5.85 Venous blood hemoglobin measurement (mass/volume) 12.4 g/dL 13.3-17.7 Blood hematocrit (volume fraction) 38 % 40-54 Automated erythrocyte mean corpuscular volume 92 [foz_us] 80-99 Automated erythrocyte mean corpuscular hemoglobin (mass per erythrocyte) 30 pg 25-34 Automated erythrocyte mean corpuscular hemoglobin concentration measurement ( mass/volume) 32 g/dL 32-36 Automated erythrocyte distribution width ratio 13.1 % 10.0-14.5 Automated blood platelet count (count/volume) 375 10*3/uL 130-400 Automated blood platelet mean volume measurement 11.2 [foz_us] 7.4-10.4 Automated blood neutrophils/100 leukocytes 54 % 42-75 Automated blood lymphocytes/100 leukocytes 21 % 12-44 Blood monocytes/100 leukocytes 19 % 0-12 Automated blood eosinophils/100 leukocytes 6 % 0-10 Automated blood basophils/100 leukocytes 1 % 0-10 Blood neutrophils automated count (number/volume) 3.7 10*3 1.8-7.8 Blood lymphocytes automated count (number/volume) 1.5 10*3 1.0-4.0 Blood monocytes automated count (number/volume) 1.3 10*3 0.0-1.0 Automated eosinophil count 0.4 10*3/uL 0.0-0.3 Automated blood basophil count (count/volume) 0.1 10*3/uL 0.0-0.1 PT panel in platelet poor plasma by coagulation assay - 06/10/17 09:30 Prothrombin time (PT) in platelet poor plasma by coagulation assay 14.1 s 12.2-14.7 INR in platelet poor plasma or blood by coagulation assay 1.1 0.8-1.4 Serum or plasma lithium measurement (moles/volume) - 06/10/17 09:30 Serum or plasma prealbumin measurement (mass/volume) 10.1 mg/dL 18.0-35.7 Comprehensive metabolic panel - 06/10/17 09:30 Serum or plasma sodium measurement (moles/volume) 143 mmol/L 135-145 Serum or plasma potassium measurement (moles/volume) 3.0 mmol/L 3.6-5.0 Serum or plasma chloride measurement (moles/volume) 89 mmol/L 98-107 Carbon dioxide 37 mmol/L 21-32 Serum or plasma anion gap determination (moles/volume) 17 mmol/L 5-14 Serum or plasma urea nitrogen measurement (mass/volume) 19 mg/dL 7-18 Serum or plasma creatinine measurement (mass/volume) 0.79 mg/dL 0.60-1.30 Serum or plasma urea nitrogen/creatinine mass ratio 24 NRG Serum or plasma creatinine measurement with calculation of estimated glomerular filtration rate > NRG Serum or plasma glucose measurement (mass/volume) 138 mg/dL 70-105 Serum or plasma calcium measurement (mass/volume) 9.4 mg/dL 8.5-10.1 Serum or plasma total bilirubin measurement (mass/volume) 0.7 mg/dL 0.1-1.0 Serum or plasma alkaline phosphatase measurement (enzymatic activity/volume) 59 U/L 40-136 Serum or plasma aspartate aminotransferase measurement (enzymatic activity/ volume) 45 U/L 5-34 Serum or plasma alanine aminotransferase measurement (enzymatic activity/volume ) 37 U/L 0-55 Serum or plasma protein measurement (mass/volume) 7.5 g/dL 6.4-8.2 Serum or plasma albumin measurement (mass/volume) 3.3 g/dL 3.2-4.5 Serum or plasma phosphate measurement (mass/volume) - 06/10/17 09:30 Serum or plasma phosphate measurement (mass/volume) 3.6 mg/dL 2.3-4.7 Magnesium - 06/10/17 09:30 Magnesium 1.9 mg/dL 1.8-2.4 Serum or plasma triglyceride measurement (mass/volume) - 06/10/17 09:30 Serum or plasma triglyceride measurement (mass/volume) 141 mg/dL <150 Blood manual differential performed detection - 06/10/17 09:30 Blood monocytes/100 leukocytes 18 % NRG Manual blood segmented neutrophils/100 leukocytes 46 % NRG Blood band neutrophils/100 leukocytes 7 % NRG Manual blood lymphocytes/100 leukocytes 25 % NRG Manual eosinophils/100 leukocytes in nose 4 % NRG Blood erythrocyte morphology finding identification NORMAL NR Comprehensive metabolic panel - 06/11/17 05:40 Serum or plasma sodium measurement (moles/volume) 136 mmol/L 135-145 Serum or plasma potassium measurement (moles/volume) 2.9 mmol/L 3.6-5.0 Serum or plasma chloride measurement (moles/volume) 90 mmol/L 98-107 Carbon dioxide 33 mmol/L 21-32 Serum or plasma anion gap determination (moles/volume) 13 mmol/L 5-14 Serum or plasma urea nitrogen measurement (mass/volume) 20 mg/dL 7-18 Serum or plasma creatinine measurement (mass/volume) 0.78 mg/dL 0.60-1.30 Serum or plasma urea nitrogen/creatinine mass ratio 26 NRG Serum or plasma creatinine measurement with calculation of estimated glomerular filtration rate > NRG Serum or plasma glucose measurement (mass/volume) 126 mg/dL 70-105 Serum or plasma calcium measurement (mass/volume) 9.1 mg/dL 8.5-10.1 Serum or plasma total bilirubin measurement (mass/volume) 0.8 mg/dL 0.1-1.0 Serum or plasma alkaline phosphatase measurement (enzymatic activity/volume) 62 U/L 40-136 Serum or plasma aspartate aminotransferase measurement (enzymatic activity/ volume) 32 U/L 5-34 Serum or plasma alanine aminotransferase measurement (enzymatic activity/volume ) 38 U/L 0-55 Serum or plasma protein measurement (mass/volume) 8.0 g/dL 6.4-8.2 Serum or plasma albumin measurement (mass/volume) 3.5 g/dL 3.2-4.5 Serum or plasma phosphate measurement (mass/volume) - 06/11/17 05:40 Serum or plasma phosphate measurement (mass/volume) 3.8 mg/dL 2.3-4.7 Magnesium - 06/11/17 05:40 Magnesium 2.1 mg/dL 1.8-2.4 Whole blood basic metabolic panel - 06/12/17 05:20 Serum or plasma sodium measurement (moles/volume) 131 mmol/L 135-145 Serum or plasma potassium measurement (moles/volume) 3.4 mmol/L 3.6-5.0 Serum or plasma chloride measurement (moles/volume) 90 mmol/L 98-107 Carbon dioxide 27 mmol/L 21-32 Serum or plasma anion gap determination (moles/volume) 14 mmol/L 5-14 Serum or plasma urea nitrogen measurement (mass/volume) 22 mg/dL 7-18 Serum or plasma creatinine measurement (mass/volume) 0.93 mg/dL 0.60-1.30 Serum or plasma urea nitrogen/creatinine mass ratio 24 NRG Serum or plasma creatinine measurement with calculation of estimated glomerular filtration rate > NRG Serum or plasma glucose measurement (mass/volume) 137 mg/dL 70-105 Serum or plasma calcium measurement (mass/volume) 9.4 mg/dL 8.5-10.1 Encounters ACCT No. Visit Date/Time Discharge Status Pt. Type Provider Facility Loc./Unit Complaint [id number] 06/04/2017 02:12:00 06/12/2017 15:30:00 DIS Inpatient LAMONT WILSON, JACQUE King [facility] 4TH BOWEL OBSTRUCTION WITH ANNULAR DESCENDING COLON [id number] 05/22/2017 11:27:00 05/22/2017 23:59:59 CLS Preadmit MEAGAN JACKSON MD [facility] CARD I25.10 CAD [id number] 05/22/2017 11:25:00 05/22/2017 23:59:59 CLS Preadmit MEAGAN JACKSON MD [facility] CARD I25.10 CAD [id number] 04/05/2016 14:58:00 04/05/2016 23:59:59 CLS Outpatient JENNIE LOPEZ [facility] LAB HYPERLIPIDEMIA [id number] 10/13/2015 14:45:00 10/13/2015 23:59:59 CLS Outpatient MAYNOR MATHIS MD [facility] RT SOA COPD [id number] 09/01/2015 13:47:00 09/01/2015 23:59:59 CLS Outpatient MEAGAN JACKSON MD [facility] CATH ABNORMAL STRESS, HTN, HLP [id number] 08/23/2015 07:31:00 08/23/2015 23:59:59 CLS Outpatient MEAGAN JACKSON MD [facility] CARD CAD,CHF,CP,HTN,HLP [id number] 08/19/2015 09:24:00 08/19/2015 23:59:59 CLS Outpatient MEAGAN JACKSON MD [facility] CARD CAD,CHF,CP,HTN,HLP [id number] 01/20/2015 11:51:00 01/20/2015 23:59:59 CLS Outpatient JENNIE LOPEZ [facility] LAB CAD,CHF, CHEST PAIN SYNDROME,HTN,HYPERLIPIDEMIA [id number] 07/20/2014 13:03:00 07/20/2014 23:59:59 CLS Outpatient MEAGAN JACKSON MD [facility] CARD CAD,CHF,HTN,HLP [id number] 10/20/2013 15:10:00 10/20/2013 23:59:59 CLS Outpatient LETHA LORENZO MD [facility] LAB 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 [id number] 08/27/2013 14:16:00 08/27/2013 23:59:59 CLS Outpatient MEAGAN JACKSON MD [facility] LAB CAD,HTN,HYPERLIPADEMA [id number] 05/14/2013 13:50:00 05/14/2013 23:59:59 CLS Outpatient MEAGAN JACKSON MD [facility] LAB CAD,HLP [id number] 04/24/2013 15:31:00 04/24/2013 23:59:59 CLS Outpatient LETHA LORENZO MD [facility] LAB CHRONIC HEP C,[facility] MED USE [id number] 04/08/2013 11:35:00 04/08/2013 23:59:59 CLS Outpatient MEAGAN JACKSON MD [facility] RAD CAD,CHF,HTN [id number] 03/26/2013 07:54:00 03/26/2013 23:59:59 CLS Outpatient MEAGAN JACKSON MD [facility] CARD CAD,CHF,HTN [id number] 03/20/2013 15:10:00 03/20/2013 23:59:59 CLS Outpatient LETHA LORENZO MD [facility] LAB CHRONIC HEP C,[facility] MED USE [id number] 02/18/2013 09:22:00 02/18/2013 23:59:59 CLS Outpatient LETHA LORENZO MD [facility] LAB CHRONIC HEPATITIS C WITHOUT MENTION ON HEP COMA [id number] 01/20/2013 10:21:00 01/20/2013 23:59:59 CLS Outpatient LETHA LORENZO MD [facility] LAB CHRONIC HEP C,[facility] MED USE [id number] 12/23/2012 14:59:00 12/23/2012 23:59:59 CLS Outpatient LETHA LORENZO MD [facility] LAB CHRONIC HEP C WITHOUT MENTION OF COMA [id number] 12/09/2012 16:03:00 12/09/2012 23:59:59 CLS Outpatient LETHA LORENZO MD [facility] LAB CHRONIC HEPATATIS WITHOUT MENTION OF HEPATIC COMA [id number] 11/27/2012 13:40:00 11/27/2012 23:59:59 CLS Outpatient LETHA LORENZO MD [facility] LAB OTHER VIRAL HEP C UNSPECIFIED [id number] 11/11/2012 10:48:00 11/11/2012 23:59:59 CLS Outpatient KELSEY AMBROSE [facility] LAB CAD,HYPERTENSION, HYPERLIPIDEMIA [id number] 11/07/2012 14:39:00 11/07/2012 23:59:59 CLS Outpatient LETHA LORENZO MD [facility] LAB HEP C, [facility] USE OF MEDS [id number] 06/20/2017 09:22:00 ALVINA Carlin MD [facility] ONC [id number] 09/27/2015 10:38:00 Document Registration [id number] 09/18/2012 15:08:00 Document Registration [id number] 06/10/2012 13:19:00 Document Registration [id number] 05/20/2012 10:48:00 Document Registration [id number] 05/05/2012 05:32:00 Document Registration [id number] 01/22/2011 20:06:00 Document Registration
[2017-06-14] MEDS: NS IV 1000 ML 1,000 ML IV ONE (13:30)
[2017-06-14 13:37] LABS: BASOPHILS # (AUTO) 0.1 10^3/uL (0.0-0.1); BASOPHILS % (AUTO) 1 % (0-10); EOSINOPHILS # (AUTO) 0.2 10^3/uL (0.0-0.3); EOSINOPHILS % (AUTO) 1 % (0-10); LYMPHOCYTES # (AUTO) 2.4 X 10^3 (1.0-4.0); LYMPHOCYTES % (AUTO) 14 % (12-44); MEAN CORPUSCULAR HEMOGLOBIN 30 PG (25-34); MEAN CORPUSCULAR HGB CONC 35 G/DL (32-36); MEAN CORPUSCULAR VOLUME 86 FL (80-99); MEAN PLATELET VOLUME 11.4 FL (7.4-10.4); MONOCYTES # (AUTO) 2.1 X 10^3 (0.0-1.0); MONOCYTES % (AUTO) 12 % (0-12); NEUTROPHILS # (AUTO) 12.1 X 10^3 (1.8-7.8); NEUTROPHILS % (AUTO) 72 % (42-75); PLATELET COUNT 433 10^3/uL (130-400); RED BLOOD COUNT 3.96 10^6/uL (4.35-5.85); RED CELL DISTRIBUTION WIDTH 12.5 % (10.0-14.5); WHITE BLOOD COUNT 16.8 10^3/uL (4.3-11.0)
[2017-06-14] MEDS: LACTATED RINGERS 1,000 ML IV ONE (13:44)
[2017-06-14 13:55] LABS: INR 1.1 (0.8-1.4)
[2017-06-14] MEDS: NS 1000 ML IV BAG IV ONE ×3 (14:00→15:35)
[2017-06-14 14:04] LABS: ALANINE AMINOTRANSFERASE 46 U/L (0-55); ALBUMIN 3.2 GM/DL (3.2-4.5); ANION GAP 17 MMOL/L (5-14); ASPARTATE AMINO TRANSFERASE 27 U/L (5-34); BILIRUBIN,TOTAL 0.5 MG/DL (0.1-1.0); BLOOD UREA NITROGEN 65 MG/DL (7-18); BUN/CREATININE RATIO 9; CALCIUM 8.1 MG/DL (8.5-10.1); CARBON DIOXIDE 23 MMOL/L (21-32); CHLORIDE 85 MMOL/L (98-107); GFR ESTIMATED 7; GLUCOSE 133 MG/DL (70-105); MAGNESIUM 2.3 MG/DL (1.8-2.4); POTASSIUM 3.9 MMOL/L (3.6-5.0); TOTAL PROTEIN 7.3 GM/DL (6.4-8.2)
[2017-06-14 14:12] LABS: TROPONIN I < 0.30 NG/ML (<0.30)
[2017-06-14 14:22] LABS: SODIUM 125 MMOL/L (135-145)
--- NOTE | 2017-06-14 14:26 | Diagnostic Imaging Report ---
CLINICAL INDICATION: Patient with syncopal episodes with no urination for the past two days. Patient has history of bowel resection approximately one week ago. EXAM: Portable chest x-ray upright view. COMPARISONS: Chest x-ray dated 06/07/2017. FINDINGS: Lungs/pleura: Stable calcified granuloma overlying the right mid and upper lung field, and lateral left lung base. Otherwise, lungs are clear. There is no pneumothorax. There is no pleural effusion. Mediastinum: Unremarkable. Pulmonary vasculature: Unremarkable. Heart: Unremarkable. Bones/extrathoracic soft tissue: Unremarkable. IMPRESSION: Stable chest x-ray exam with no interval radiographic evidence of acute cardiopulmonary process. Dictated by: Dictated on workstation # [id number]
[2017-06-14] MEDS: NS IV 1000 ML 1,000 ML IV SCH ×2 (14:28→17:50)
[2017-06-14] MEDS: LACTATED RINGERS 1,000 ML IV SCH ×3 (14:28→17:50)
[2017-06-14 14:43] LABS: BAND NEUTROPHILS 3 %; BASOPHILS % (MANUAL) 1 %; EOSINOPHILS % (MANUAL) 1 %; LYMPHOCYTES % (MANUAL) 9 %; NEUTROPHILS % (MANUAL) 73 %
[2017-06-14 15:10] LABS: BILIRUBIN,URINE NEGATIVE (NEGATIVE); KETONES,URINE NEGATIVE (NEGATIVE); LEUKOCYTE ESTERASE ,URINE 1+ (NEGATIVE); NITRITE,URINE NEGATIVE (NEGATIVE); PH,URINE 5 (5-9); PROTEIN,URINE 3+ (NEGATIVE); UROBILINOGEN,URINE NORMAL (NORMAL)
--- NOTE | 2017-06-14 15:14 | ED General ---
General Chief Complaint: Neurological Problems Stated Complaint: SEIZURE ACTIVITY Nursing Triage Note: PT ARRIVED PER EMS, PT CO OF PASSING OUT AT HOME, PT STATES HAS NO URINATED FOR A FEW 2 DAYS. PT STATES HAS BEEN PASSING OUT FOR A COUPLE DAYS. PT HAS HAD 1L NS BY EMS, #18 L AC, #18 STARTED IN R WRIST BY EMS. PT TEMP LOW 93.4 AX. PT HAD BOWEL RESECTION LAST SUNDAY. JUAN M IN PLACE MIDLINE ON ABD Nursing Sepsis Screen: No Definite Risk Source of Information: Patient, EMS, Old Records History of Present Illness Time Seen by Provider: 13:20 Initial Comments PT ARRIVES VIA EMS FROM HOME PT STATES HE HAS BEEN GETTING REAL SHAKEY AND PASSING OUT EVERY TIME HE STANDS UP, FOR THE LAST 2 DAYS--DENIES ANY INJURIES EMS REPORT BP 70'S/40'S AT SCENE--EMS GAVE 1 LITER OF FLUIDS PRIOR TO ARRIVAL. BP 82/38 ON ARRIVAL. PT ADMITTED 06/04-06/12 FOR BOWEL OBSTRUCTION WITH COLON RESECTION FOR MASS-- LIKELY ADENOCARCINOMA PT DENIES ANY PROBLEMS WITH INCISION PT DENIES ANY ABDOMINAL PAIN PT DENIES ANY NAUSEA/VOMITING PT STATES HE HAS BEEN HAVING WATERY, LIGHT YELLOW DIARRHEA EVER SINCE SURGERY-- STATES 10-12 STOOLS/DAY. NO BLOOD IN STOOLS PT STATES HE HAS NOT HAD ANY INTAKE YESTERDAY OR TODAY PT STATES HE HAS NOT URINATED IN THE LAST 2 DAYS NO FEVER/SWEATS/CHILLS PCP: DR. MATHIS Allergies and Home Medications Allergies Coded Allergies: No Known Drug Allergies (Unverified , 01/22/11) Home Medications Albuterol Sulfate 1 Puff Puff, 2 PUFF IH Q4H, #1 1 PUFF = 90 MCG Prescribed by: JACQUE MIGUEL on 06/12/17 0827 Aspirin 81 Mg Poncho., 81 MG PO DAILY, (Reported) Atorvastatin Calcium 10 Mg Tablet, 10 MG PO HS, (Reported) Budesonide/Formoterol Fumarate 10.2 Gm Hfa.aer.ad, 2 PUFF INH BID, (Reported) Enalapril Maleate 5 Mg Tablet, 5 MG PO BID, (Reported) Fish Oil/Dha/Epa 1 Each Capsule, 1,200 MG PO BID, (Reported) Metoprolol Tartrate 25 Mg Tablet, 25 MG PO BID, (Reported) Ondansetron 4 Mg Tab.rapdis, 4 MG PO Q4H, #10 Prescribed by: JACQUE MIGUEL on 06/12/17826 Pantoprazole Sodium 40 Mg Tablet.dr, 40 MG PO DAILY, (Reported) Ropinirole HCl 2 Mg Tablet, 4 MG PO HS, (Reported) TAKES 2 (2MG) TABLETS [Hydrocodone Bit/Acetaminophen] Y TAB, 1 TAB PO Q4H PRN for PAIN-MODERATE, #30 Prescribed by: JACQUE MIGUEL on 06/12/17826 Constitutional: see HPI, No chills, dizziness, No fever, malaise, weakness EENTM: no symptoms reported Respiratory: no symptoms reported, No cough, No short of breath Cardiovascular: see HPI, No chest pain, No edema, No palpitations, syncope, No vascular heart diseas Gastrointestinal: see HPI, No abdominal pain, diarrhea, loss of appetite, No nausea, No vomiting Genitourinary: see HPI, decreased output Musculoskeletal: no symptoms reported, No back pain, No neck pain Skin: no symptoms reported Psychiatric/Neurological: See HPI (SYNCOPE), Denies Headache, Denies Numbness, Denies Paresthesia, Denies Seizure, Denies Tingling, Denies Tremors, Denies Weakness Hematologic/Lymphatic: No Symptoms Reported, Denies Blood Clots, Denies Easy Bleeding, Denies Easy Bruising, Denies Swollen Glands Immunological/Allergic: no symptoms reported Past Xesvadx-Glexse-Rixdbz Hx Patient Social History Alcohol Use: Regular Use (DAILY ALCOHOL USE) Alcohol Beverage of Choice: Beer Recreational Drug Use: Yes (THC) Drug of Choice: Pot Smoking Status: Current Everyday Smoker (CIGARS) Type Used: Cigars Recent Foreign Travel: No Contact w/Someone Who Travel: No Recent Infectious Disease Expo: No Recent Hopitalizations: No Immunizations Up To Date Tetanus Booster (TDap): Unknown Seasonal Allergies Seasonal Allergies: No Surgeries History of Surgeries: Yes (CARDIAC CATHS--STENTS X 2; COLONOSCOPY; BOWEL RESECTION FOR OBSTRUCTION DUE TO MASS/ADENOCARCINOMA--06/04/17--DR. AHMADI) Surgeries: Abdominal, Bowel Surgery, Cardiac, Coronary Stent Respiratory History of Respiratory Disorde: Yes Respiratory Disorders: COPD, Emphysema Currently Using CPAP: No Cardiovascular History of Cardiac Disorders: Yes (CT X 1--CARDIAC CATHS WITH STENTS X 2, ANGIOPLASTY; CHF; PERICARDITIS;PULMONARY HTN; MILD BILATERAL CAROTID STENOSIS) Cardiac Disorders: Coronary Artery Disease, Heart Attack, High Cholesterol, Hypertension Neurological History of Neurological Disord: No Reproductive System Hx Reproductive Disorders: No Genitourinary History of Genitourinary Disor: No Gastrointestinal History of Gastrointestinal Di: Yes (BOWEL OBSTRUCTION DUE TO COLON MASS- ADENOCARCINOMA--S/P RESECTION 06/04/17; HEPATITIS C--S/P INTERFERON TREATMENT) Gastrointestinal Disorders: Chronic Constipation Musculoskeletal History of Musculoskeletal Dis: No Endocrine History of Endocrine Disorders: No HEENT History of HEENT Disorders: No Cancer History of Cancer: Yes (NEW DX 06/04/17) Cancer: Colon Did You Recieve Any Treatments: Yes Type of Tx Receive: Surgical Intervention Psychosocial History of Psychiatric Problem: No Integumentary History of Skin or Integumenta: No Blood Transfusions History of Blood Disorders: No Family Medical History Significant Family History: Heart Disease, Hypertension Physical Exam Vital Signs Vital Sign - Last 12Hours 06/14/17 13:12 Temp 93.4 Pulse 64 Resp 18 B/P (MAP) 82/38 (53) Pulse Ox 96 Capillary Refill : Less Than 3 Seconds General Appearance: WD/WN, Other (SKIN VERY COLD TO TOUCH) HEENT: PERRL/EOMI, Other (ORAL MUCOSA DRY) Respiratory: Normal Breath Sounds, No Accessory Muscle Use, No Respiratory Distress Cardiovascular: Regular Rate, Rhythm, No Edema, No Murmur, Normal Peripheral Pulses Gastrointestinal: Normal Bowel Sounds, No Pulsatile Mass, Non Tender, Soft, No Distended, No Hernia, Other (JUAN M IN PLACE, INCISION IS CLEAN/DRY AND INTACT; ) Back: No CVA Tenderness Extremity: Non Tender, No Calf Tenderness, No Pedal Edema, Slow Capillary Refill Neurologic/Psychiatric: Alert, Oriented x3, No Motor/Sensory Deficits, 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40#H, INR Comment 1.1, Platelet Count 433H, Total Bilirubin 0.5 Results/Orders Lab Results Laboratory Tests Test 06/14/17 13:25 06/14/17 15:00 Range/Units White Blood Count 16.8 H 4.3-11.0 10^3/uL Red Blood Count 3.96 L 4.35-5.85 10^6/uL Hemoglobin 12.0 L 13.3-17.7 G/DL Hematocrit 34 L 40-54 % Mean Corpuscular Volume 86 80-99 FL Mean Corpuscular Hemoglobin 30 25-34 PG Mean Corpuscular Hemoglobin Concent 35 32-36 G/DL Red Cell Distribution Width 12.5 10.0-14.5 % Platelet Count 433 H 130-400 10^3/uL Mean Platelet Volume 11.4 H 7.4-10.4 FL Neutrophils (%) (Auto) 72 42-75 % Lymphocytes (%) (Auto) 14 12-44 % Monocytes (%) (Auto) 12 0-12 % Eosinophils (%) (Auto) 1 0-10 % Basophils (%) (Auto) 1 0-10 % Neutrophils # (Auto) 12.1 H 1.8-7.8 X 10^3 Lymphocytes # (Auto) 2.4 1.0-4.0 X 10^3 Monocytes # (Auto) 2.1 H 0.0-1.0 X 10^3 Eosinophils # (Auto) 0.2 0.0-0.3 10^3/uL Basophils # (Auto) 0.1 0.0-0.1 10^3/uL Neutrophils % (Manual) 73 % Lymphocytes % (Manual) 9 % Monocytes % (Manual) 13 % Eosinophils % (Manual) 1 % Basophils % (Manual) 1 % Band Neutrophils 3 % Blood Morphology Comment NORMAL Prothrombin Time 14.0 12.2-14.7 SEC INR Comment 1.1 0.8-1.4 Activated Partial Thromboplast Time 23 L 24-35 SEC Sodium Level 125 *L 135-145 MMOL/L Potassium Level 3.9 3.6-5.0 MMOL/L Chloride Level 85 L 98-107 MMOL/L Carbon Dioxide Level 23 21-32 MMOL/L Anion Gap 17 H 5-14 MMOL/L Blood Urea Nitrogen 65 H 7-18 MG/DL Creatinine 7.40 #H 0.60-1.30 MG/DL Estimat Glomerular Filtration Rate 7 BUN/Creatinine Ratio 9 Glucose Level 133 H 70-105 MG/DL Lactic Acid Level 1.65 0.50-2.00 MMOL/L Calcium Level 8.1 L 8.5-10.1 MG/DL Magnesium Level 2.3 1.8-2.4 MG/DL Total Bilirubin 0.5 0.1-1.0 MG/DL Aspartate Amino Transf (AST/SGOT) 27 5-34 U/L Alanine Aminotransferase (ALT/SGPT) 46 0-55 U/L Alkaline Phosphatase 93 40-136 U/L Troponin I < 0.30 <0.30 NG/ML Total Protein 7.3 6.4-8.2 GM/DL Albumin 3.2 3.2-4.5 GM/DL Urine Color YELLOW Urine Clarity VERY CLOUDY H Urine pH 5 5-9 Urine Specific [place] 1.010 L 1.016-1.022 Urine Protein 3+ H NEGATIVE Urine Glucose (UA) 1+ H NEGATIVE Urine Ketones NEGATIVE NEGATIVE Urine Nitrite NEGATIVE NEGATIVE Urine Bilirubin NEGATIVE NEGATIVE Urine Urobilinogen NORMAL NORMAL MG/DL Urine Leukocyte Esterase 1+ H NEGATIVE Urine RBC (Auto) 4+ H NEGATIVE Urine RBC 2-5 H /HPF Urine WBC 10-25 H /HPF Urine Squamous Epithelial Cells 10-25 H /HPF Urine Crystals PRESENT H /LPF Urine Amorphous Sediment MOD YARA URATES H /LPF Urine Bacteria TRACE /HPF Urine Casts PRESENT /LPF Urine Hyaline Casts 5-10 H /LPF Urine Mucus MODERATE H /LPF Urine Culture Indicated YES Micro Results Microbiology 06/14/17 Influenza Types A,B Antigen (TEVIN) - Final, Complete My Orders Orders - NEIL SAINZ DO Saline Lock/Iv-Start (06/14/17 13:24) Ekg Tracing (06/14/17 13:24) O2 (06/14/17 13:24) Monitor-Rhythm Ecg Trace Only (06/14/17 13:24) Cbc With Automated Diff (06/14/17 13:24) Comprehensive Metabolic Panel (06/14/17 13:24) Lactic Acid Analyzer (06/14/17 13:24) Magnesium (06/14/17 13:24) Protime With Inr (06/14/17 13:24) Partial Thromboplastin Time (06/14/17 13:24) Troponin I (06/14/17 13:24) Ua Culture If Indicated (06/14/17 13:24) Saline Lock/Iv-Start (06/14/17 13:24) Ns Iv 1000 Ml (Sodium Chloride 0.9%) (06/14/17 13:24) Catheter(Urinary) Insert & Ass 03,15 (06/14/17 13:26) Saline Lock/Iv-Start (06/14/17 13:26) Lactated Ringers (Lr 1000 Ml Iv Solution (06/14/17 13:26) Blood Culture (06/14/17 13:26) Influenza A And B Antigens (06/14/17 13:26) Manual Differential (06/14/17 13:25) Chest 1 View, Ap/Pa Only (06/14/17 13:54) Ns Iv 1000 Ml (Sodium Chloride 0.9%) (06/14/17 14:45) Ns Iv 1000 Ml (Sodium Chloride 0.9%) (06/14/17 14:45) Lactated Ringers (Lr 1000 Ml Iv Solution (06/14/17 14:45) Ns Iv 1000 Ml (Sodium Chloride 0.9%) (06/14/17 14:45) Urine Culture (06/14/17 15:00) Ns Iv 1000 Ml (Sodium Chloride 0.9%) (06/14/17 16:00) Lactated Ringers (Lr 1000 Ml Iv Solution (06/14/17 16:00) Ns Iv 1000 Ml (Sodium Chloride 0.9%) (06/14/17 18:00) Lactated Ringers (Lr 1000 Ml Iv Solution (06/14/17 18:00) Hydrocodone/Apap 5/325 Tablet (Lortab 5 (06/14/17 19:30) Medications Given in ED Current Medications Medications Dose Ordered Sig/Jake Route Start Time Stop Time Status Last Admin Dose Admin Lactated Ringer's 1,000 ml @ 0 mls/hr Q0M ONCE IV 06/14/17 13:26 06/14/17 13:27 DC 06/14/17 13:44 1,000 MLS/HR Sodium Chloride 1,000 ml ONCE ONCE IV 06/14/17 14:45 06/14/17 14:46 DC 06/14/17 14:00 1,000 ML Sodium Chloride 1,000 ml ONCE ONCE IV 06/14/17 14:45 06/14/17 14:46 DC 06/14/17 14:00 1,000 ML Sodium Chloride 1,000 ml ONCE ONCE IV 06/14/17 16:00 06/14/17 16:01 DC 06/14/17 15:35 1,000 ML Sodium Chloride 1,000 ml @ 0 mls/hr Q0M ONCE IV 06/14/17 13:24 06/14/17 13:25 DC 06/14/17 13:30 1,000 MLS/HR Vital Signs/I&O Vital Sign - Last 12Hours 06/14/17 13:12 Temp 93.4 Pulse 64 Resp 18 B/P (MAP) 82/38 (53) Pulse Ox 96 Capillary Refill : Less Than 3 Seconds Blood Pressure Mean: 53 Progress Note : Progress Note RECTAL TEMP--93.4 ON ARRIVAL BP 82/38 ON ARRIVAL HEART RATE IN 80'S ON ARRIVAL PT HAD CREATININE OF 0.9 ON 06/12/17. PT REQUIRED MASSIVE AMOUNT OF FLUID DURING ER STAY--EVENTUALLY BP UP TO > 90 SYSTOLIC RECTAL TEMP UP TO 98 WITH HYDRATION USING WARMED FLUIDS AND BLANKETS 1500--PT WITH 40 ML URINE OUT, AFTER 5-6 LITERS OF FLUIDS 1500--PT INCONTINENT OF LARGE AMOUNT OF CLEAR YELLOW WATERY STOOL--ESTIMATED > 150 ML 1545--PT INCONTINENT OF LARGE AMOUNT OF CLEAR YELLOW WATERY STOOL--EST > 150 ML 1620--INCONTINENT AGAIN OF LARGE AMOUNT OF CLEAR YELLOW WATERY STOOL--EST > 150 ML 1720--INCONTINENT AGAIN OF LARGE AMOUNT OF CLEAR YELLOW WATERY STOOL--EST > 150 ML 1900--PT WITH URINE OUTPUT OF APPROXIMATELY 500 ML URINE AT THIS TIME--CLEAR PALE, YELLOW URINE. 1930--PT WITH APPROXIMATELY 800 ML URINE OUTPUT AT THIS TIME. 1915--PT NOW STATES HE IS STARTING TO HAVE SOME MILD INCISIONAL PAIN, AND HAS NOT HAD ANY PAIN MEDICATION SINCE EARLY THIS AM. ECG Initial ECG Impression Time: 14:15 Initial ECG Rate: 78 Initial ECG Rhythm: Normal Sinus (OCC PVC) Initial ECG Impression: Nonspecific Changes Initial ECG Comparisson: No Previous ECG Available Diagnostic Imaging Comments CXR--NO ACUTE PROCESS, PER RADIOLOGIST REPORT AT 1453 Reviewed: Reviewed by Me Departure Communication (Admissions) Progress Notes 1424--ATTEMPTING TO CONTACT DR. AHMADI, MESSAGE LEFT ON CELL 1425--SPOKE WITH DR. MIGUEL, SHE ADVISES TRANSFER 1430--CALLED [facility], WILL CALL BACK 1440--SPOKE WITH DR. AHMADI, HE AGREES WITH TRANSFER 1444--SPOKE WITH DR. LOPEZ, HOSPITALIST AT [facility]. HE ADVISES TO ADMIT TO ICU/ACCOUNTING SUPERVISOR. 1449[facility] AVAILABLE 1450--CALLED [facility]. PLACED ON HOLD. PAGING ACCOUNTING SUPERVISOR. 1505--SPOKE WITH DR. ROMANO, ACCEPTS PT FOR ADMIT. HE DOES NOT ADVISE ANY FURTHER TREATMENT AT THIS TIME MARKED DELAY IN TRANSFER DUE TO NO EMS CREWS AVAILABLE. 1930--EMS IS ENROUTE TO HERE FOR TRANSFER Impression Impression: Primary Impression: Acute renal failure Additional Impressions: Severe dehydration Severe hypotension SEVERE HYPOTHERMIA Diarrhea S/P RECENT COLON RESECTION FOR OBSTRUCTION DUE TO ADENOCARCINOMA Disposition: XFER SHT-TRM HOSP Condition: Improved Departure-Patient Inst. Referrals: MAYNOR MATHIS MD (PCP/Family) Primary Care Physician NEIL SAINZ DO Jun 14, 2017 15:14
[2017-06-14] MEDS: HYDROcodone/APAP 5 MG/325 MG (LORTAB) TAB PO ONE (19:34)
[2017-06-14 22:52] VITALS: BP 97/53
== END 2017-06-14 19:53 | disposition short-term general hospital (02) ==
LOC: EDUNIT# 13:12 → ER 13:15
DX: N17.9 Acute kidney failure, unspecified (principal); E86.0 Dehydration; I95.9 Hypotension, unspecified; R68.0 Hypothermia, not associated with low environmental temperature; R19.7 Diarrhea, unspecified; J43.9 Emphysema, unspecified; I25.10 Atherosclerotic heart disease of native coronary artery without angina pectoris; I25.2 Old myocardial infarction; E78.00 Pure hypercholesterolemia, unspecified; I10 Essential (primary) hypertension; F12.10 Cannabis abuse, uncomplicated; F17.290 Nicotine dependence, other tobacco product, uncomplicated; Z95.5 Presence of coronary angioplasty implant and graft; Z87.19 Personal history of other diseases of the digestive system; Z82.49 Family history of ischemic heart disease and other diseases of the circulatory system; Z85.09 Personal history of malignant neoplasm of other digestive organs; Z98.890 Other specified postprocedural states; Z79.82 Long term (current) use of aspirin
CPT/HCPCS: 36415; 51702; 71010; 80053; 81000; 83605; 83735; 84484; 85007; 85027; 85610; 85730; 87040; 87088; 87186; 87804; 93005; 93041

== ENCOUNTER → 2017-08-15 | Outpatient (CLI) | payer MEDICAID ==
[~2017-08-15] MED LIST changes: +CATHETER FLUSH 10 ML SYR IV PRN; +REGADENOSON 0.4 MG/5 ML SYR (LEXISCAN) IV ONE
[2017-08-15 12:43] VITALS: BP 153/72
--- NOTE | 2017-08-15 16:07 | STRESS TEST ---
DATE OF SERVICE: 08/15/2017 LEXISCAN MYOVIEW STRESS TEST REPORT REFERRING PHYSICIAN: Viraj Mahajan M.D. Baseline heart rate is 75. Baseline blood pressure 153/70. Baseline EKG is sinus rhythm with frequent PVCs. SUMMARY: The patient was injected with 10.12 mCi of technetium-99 Myoview and the resting images were obtained. Then, the patient received 0.4 mg of Lexiscan followed by 28.7 mCi of technetium-99 Myoview. Throughout the test, there were no EKG changes. The resting and stress images were reviewed and compared in the short axis, horizontal long axis, and vertical long axis views. Review of the images showed good radiotracer uptake with no significant ischemia or infarction. SSS is 2. SDS 2. TID value is 0.98. On the gated images, the left ventricle appeared to be in normal size with normal contractility. Calculated ejection fraction 57%. CONCLUSION: 1. The patient tolerated Lexiscan well. 2. Diaphragmatic attenuation with no significant ischemia or infarction on SPECT images. 3. Normal left ventricular size with normal contractility. Calculated ejection fraction 58%. Job ID: [id number] DocumentID: [id number] Dictated Date: 08/15/2017 14:06:45 Computer Systems Architect Date: 08/15/2017 15:45:07 Dictated By: MEAGAN JACKSON MD
== END ==
LOC: CARD 09:57
PROVIDERS: ATTEND Internal Medicine Cardiovascular Disease
DX: I25.10 Atherosclerotic heart disease of native coronary artery without angina pectoris (principal); I10 Essential (primary) hypertension; E07.89 Other specified disorders of thyroid; E78.2 Mixed hyperlipidemia
CPT/HCPCS: 78452; 93017

== ENCOUNTER 2017-09-12 13:59 | Outpatient (RCR) | payer MEDICAID ==
[~2017-09-12 13:59] MED LIST changes: -CATHETER FLUSH 10 ML SYR IV PRN; -REGADENOSON 0.4 MG/5 ML SYR (LEXISCAN) IV ONE
[2017-09-12 14:16] LABS: BASOPHILS # (AUTO) 0.2 10^3/uL (0.0-0.1); BASOPHILS % (AUTO) 3 % (0-10); EOSINOPHILS # (AUTO) 0.5 10^3/uL (0.0-0.3); EOSINOPHILS % (AUTO) 8 % (0-10); HEMATOCRIT 36 % (40-54); HEMOGLOBIN 11.4 G/DL (13.3-17.7); LYMPHOCYTES # (AUTO) 2.3 X 10^3 (1.0-4.0); LYMPHOCYTES % (AUTO) 36 % (12-44); MEAN CORPUSCULAR HEMOGLOBIN 28 PG (25-34); MEAN CORPUSCULAR HGB CONC 32 G/DL (32-36); MEAN CORPUSCULAR VOLUME 87 FL (80-99); MEAN PLATELET VOLUME 10.7 FL (7.4-10.4); MONOCYTES # (AUTO) 0.7 X 10^3 (0.0-1.0); MONOCYTES % (AUTO) 11 % (0-12); NEUTROPHILS # (AUTO) 2.8 X 10^3 (1.8-7.8); NEUTROPHILS % (AUTO) 43 % (42-75); PLATELET COUNT 287 10^3/uL (130-400); RED BLOOD COUNT 4.13 10^6/uL (4.35-5.85); RED CELL DISTRIBUTION WIDTH 13.2 % (10.0-14.5); WHITE BLOOD COUNT 6.5 10^3/uL (4.3-11.0)
[2017-09-12 14:36] LABS: ALANINE AMINOTRANSFERASE 22 U/L (0-55); ALBUMIN 4.1 GM/DL (3.2-4.5); ALKALINE PHOSPHATASE 80 U/L (40-136); BILIRUBIN,TOTAL 0.5 MG/DL (0.1-1.0); BUN/CREATININE RATIO 19; CALCIUM 9.2 MG/DL (8.5-10.1); CARBON DIOXIDE 28 MMOL/L (21-32); CHLORIDE 106 MMOL/L (98-107); CREATININE SERUM 0.81 MG/DL (0.60-1.30); GFR ESTIMATED > 60; GLUCOSE 115 MG/DL (70-105); POTASSIUM 4.2 MMOL/L (3.6-5.0); SODIUM 141 MMOL/L (135-145); TOTAL PROTEIN 7.9 GM/DL (6.4-8.2)
== END 2017-09-18 | disposition home or self-care (01) ==
LOC: ONC 13:59
PROVIDERS: ATTEND Internal Medicine Hematology & Oncology
DX: C18.6 Malignant neoplasm of descending colon (principal)
CPT/HCPCS: 36415; 80053; 82378; 85025; 99213; 99214

== ENCOUNTER 2017-11-26 05:41 | Outpatient (CLI) | payer MEDICAID ==
[~2017-11-26] VITALS: Ht 167.6 cm; Wt 79.8 kg
== END 2017-11-26 16:12 ==
LOC: PREOP 05:41
PROVIDERS: ATTEND Surgery
DX: Z01.818 Encounter for other preprocedural examination (principal); C18.9 Malignant neoplasm of colon, unspecified

== ENCOUNTER 2017-12-03 10:34 | Day surgery (SDC) | payer MEDICAID ==
[2017-12-03] MEDS ORDERED: NS IV 500 ML 500 ML IV PRN (10:45)
[2017-12-03] MEDS ORDERED: MIDAZOLAM 2 MG/2 ML (VERSED) VIAL IVP PRN (10:45)
[2017-12-03] MEDS ORDERED: fentaNYL INJECTION 100 MCG/2 ML AMP IVP PRN (10:45)
[2017-12-03] MEDS ORDERED: NS IV 500 ML 500 ML ONE (10:47)
[2017-12-03 11:01] VITALS: BP 145/71
--- NOTE | 2017-12-03 11:44 | History & Physicial ---
History of Present Illness History of Present Illness Reason for visit/HPI To undergo surveillance colonoscopy. Personal history of colon cancer Date of Admission 12/03/17 Date Seen by Provider: Dec 03, 2017 Time Seen by Provider: 11:43 I consulted on this patient on 12/03/17 11:43 Attending Physician Nicola Ahmadi MD Admitting Physician Viraj Mahajan MD Consult Allergies and Home Medications Allergies Coded Allergies: No Known Drug Allergies (Unverified , 01/22/11) Home Medications Aspirin 81 Mg Tablet.dr, 81 MG PO DAILY, (Reported) Atorvastatin Calcium 10 Mg Tablet, 10 MG PO HS, (Reported) Budesonide/Formoterol Fumarate 10.2 Gm Hfa.aer.ad, 2 PUFF INH BID, (Reported) Enalapril Maleate 5 Mg Tablet, 5 MG PO BID, (Reported) Fish Oil/Dha/Epa 1 Each Capsule, 1,200 MG PO BID, (Reported) Metoprolol Tartrate 25 Mg Tablet, 25 MG PO BID, (Reported) Pantoprazole Sodium 40 Mg Tablet.dr, 40 MG PO DAILY, (Reported) Ropinirole HCl 2 Mg Tablet, 4 MG PO HS, (Reported) TAKES 2 (2MG) TABLETS Patient Home Medication List Home Medication List Reviewed: Yes Past Zhrmzyv-Wvaqfj-Axciak Hx Patient Social History Alcohol Use: Regular Use Number of Drinks Today: 0 Alcohol Beverage of Choice: Beer Recreational Drug Use: Yes Drug of Choice: Pot Smoking Status: Current Everyday Smoker Type Used: Cigars Recent Foreign Travel: No Contact w/other who traveled: No Recent Hopitalizations: No Recent Infectious Disease Expo: No Immunizations Up To Date Tetanus Booster (TDap): Unknown Seasonal Allergies Seasonal Allergies: No Surgeries Yes Abdominal, Bowel Surgery, Cardiac, Coronary Stent Respiratory Yes Currently Using CPAP: No Cardiovascular Yes Coronary Artery Disease, Heart Attack, High Cholesterol, Hypertension Neurological No Reproductive System Hx Reproductive Disorders: No Genitourinary No Gastrointestinal Yes Chronic Constipation Musculoskeletal No Endocrine History of Endocrine Disorders: No HEENT History of HEENT Disorders: No Cancer Yes (NEW DX 06/04/17) Colon Did You Recieve Any Treatments: Yes Type of Treatment: Surgical Intervention Psychosocial History of Psychiatric Problem: No Integumentary History of Skin or Integumenta: No Blood Transfusions History of Blood Disorders: No Family Medical History Significant Family History: Heart Disease, Hypertension Constitutional: no symptoms reported EENTM: no symptoms reported Cardiovascular: no symptoms reported Gastrointestinal: no symptoms reported Musculoskeletal: no symptoms reported Skin: no symptoms reported Psychiatric/Neurological: No Symptoms Reported Physical Exam Vital Signs Vital Signs - First Documented 12/03/17 11:01 Temp 99.3 Pulse 77 Resp 16 B/P (MAP) 145/71 (95) Pulse Ox 93 O2 Delivery Room Air Capillary Refill : General Appearance: No Apparent Distress Neck: Normal Inspection Respiratory: Lungs Clear Cardiovascular: Regular Rate, Rhythm Gastrointestinal: Non Tender, Soft Rectal: Deferred Extremity: Normal Inspection Neurologic/Psychiatric: Alert, Oriented x3 Skin: Warm/Dry Assessment/Plan Assessment and Plan Gentleman with a personal history of colon cancer. For surveillance colonoscopy Admission Diagnosis Admission Status: Other (Outpt Proc) NICOLA AHMADI MD Dec 03, 2017 11:44 am
--- NOTE | 2017-12-03 11:45 | Conscious Sedation/ASA ---
Conscious Sedation Pre-Proced Time Reviewed: 11:45 ASA Class: 2 Airway Mallampati Classification: (king salmon appropriate class) I. II. III, IV Lungs Heart ASA score ASA 1: a normal healthy patient ASA 2: a patient with a mild systemic disease (mid diabetes, controlled hypertension, obesity ASA 3: a patient with a severe systemic disease that limits activity (angina , COPD, prior Myocardial infarction) ASA 4: a patient with an incapacitating disease that is a constant threat to life (CHF, renal failure) ASA 5: a moribund patient not expected to survive 24 hrs. (ruptured aneurysm) ASA 6: a declared brain patient whose organs are being harvested. For emergent operations, add the letter E after the classification Grade 1 Sedation Plan: Discussed options with patient/fam Note The patient is an appropriate candidate to undergo the planned procedure, sedation, and anesthesia. The patient immediately re-assessed prior to indication. NICOLA AHMADI MD Dec 03, 2017 11:45 am
[2017-12-03] MEDS ORDERED: MIDAZOLAM 2 MG/2 ML (VERSED) VIAL ONE ×3 (12:11)
[2017-12-03] MEDS ORDERED: fentaNYL INJECTION 100 MCG/2 ML AMP ONE (12:12)
--- NOTE | 2017-12-03 12:31 | Endo Procedure Record ---
Endo Procedure Report Date of Procedure Last Colonoscopy: Yes Dec 03, 2017 Surgeon (s) NICOLA AHMADI MD Post Procedure/Op Diagnosis 1 mm rectal polyp Procedure Performed Flexible sigmoidoscopy Hot biopsy polypectomy Description of Procedure Anesthesia Type: Conscious Sedation Specimen(s) collected/removed Rectal polyp Description of the Procedure Indication for the procedure: In May 2017, this gentleman presented with an obstructing carcinoma of the descending colon, requiring subtotal colectomy with ileo-the rectal anastomosis. He returned for surveillance flexible sigmoidoscopy of the rectum. Informed consent was obtained after reviewing the procedure in detail. Description of the procedure: He was placed in left lateral rectus position and his vital signs were monitored. Conscious sedation was achieved using Versed and fentanyl. Examination of the perianal area revealed external hemorrhoids. Digital examination was otherwise unremarkable. The flexible colonoscope was introduced into the rectum and advanced to the ileo-rectal anastomosis, that was widely patent. The scope was then withdrawn slowly and the mucosa examined in a systematic fashion. Findings: 1 mm polyp at the distal rectum, that was excised with hot biopsy forceps. He tolerated the procedure well and was taken back to the nursing area in a stable condition. 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 Small rectal polyp excised. Recommend surveillance colonoscopy in 3 years Copy Copies To 1: CHARLI FAN MD, XAVIER M MD Dec 03, 2017 12:31 pm
--- NOTE | 2017-12-03 12:32 | Discharge Inst-Simple/Standard ---
Discharge Inst-Standard Discharge Medications New, Converted or Re-Newed RX: Other Patient Instructions/Follow Up Plan of Care/Instructions/FU: Repeat flexible sigmoidoscopy in 3 years Activity as Tolerated: Yes Discharge Diet: No Restrictions NICOLA AHMADI MD Dec 03, 2017 12:32 pm
[2017-12-03 12:40] VITALS: BP 113/60
[2017-12-03 13:06] VITALS: BP 143/78
[2017-12-03 13:14] VITALS: BP 143/78
== END 2017-12-03 13:13 | disposition home or self-care (01) ==
LOC: ENDO 10:34
PROVIDERS: ATTEND Surgery
DX: C18.6 Malignant neoplasm of descending colon (principal); D12.8 Benign neoplasm of rectum; F17.290 Nicotine dependence, other tobacco product, uncomplicated; I25.10 Atherosclerotic heart disease of native coronary artery without angina pectoris; I25.2 Old myocardial infarction; E78.00 Pure hypercholesterolemia, unspecified; I10 Essential (primary) hypertension; K59.09 Other constipation
CPT/HCPCS: 88305

== ENCOUNTER → 2018-01-11 | Outpatient (CLI) | payer MEDICAID ==
[~2018-01-11] MED LIST changes: +RT-ALBUTEROL SULF 2.5 MG/3 ML PRE-MIX VIAL INH ONE; +RT-ALBUTEROL SULF 2.5 MG/3 ML PRE-MIX VIAL ONE
== END ==
LOC: RT 10:16
PROVIDERS: ATTEND Internal Medicine Infectious Disease
DX: Z02.71 Encounter for disability determination (principal); R06.02 Shortness of breath
CPT/HCPCS: 94060

== ENCOUNTER 2018-03-13 10:49 | Outpatient (RCR) | payer MEDICAID ==
[2017-12-19 10:16] LABS: BASOPHILS # (AUTO) 0.2 10^3/uL (0.0-0.1); BASOPHILS % (AUTO) 2 % (0-10); EOSINOPHILS # (AUTO) 0.7 10^3/uL (0.0-0.3); EOSINOPHILS % (AUTO) 10 % (0-10); HEMATOCRIT 34 % (40-54); HEMOGLOBIN 10.7 G/DL (13.3-17.7); LYMPHOCYTES # (AUTO) 2.5 X 10^3 (1.0-4.0); LYMPHOCYTES % (AUTO) 34 % (12-44); MEAN CORPUSCULAR HEMOGLOBIN 25 PG (25-34); MEAN CORPUSCULAR HGB CONC 31 G/DL (32-36); MEAN CORPUSCULAR VOLUME 79 FL (80-99); MEAN PLATELET VOLUME 10.5 FL (7.4-10.4); MONOCYTES % (AUTO) 13 % (0-12); NEUTROPHILS % (AUTO) 41 % (42-75); PLATELET COUNT 306 10^3/uL (130-400); RED BLOOD COUNT 4.35 10^6/uL (4.35-5.85); RED CELL DISTRIBUTION WIDTH 16.9 % (10.0-14.5); WHITE BLOOD COUNT 7.3 10^3/uL (4.3-11.0)
[2017-12-19 10:34] LABS: ALANINE AMINOTRANSFERASE 35 U/L (0-55); ALKALINE PHOSPHATASE 85 U/L (40-136); BILIRUBIN,TOTAL 0.4 MG/DL (0.1-1.0); BUN/CREATININE RATIO 19; CARBON DIOXIDE 24 MMOL/L (21-32); CHLORIDE 107 MMOL/L (98-107); CREATININE SERUM 0.78 MG/DL (0.60-1.30); GFR ESTIMATED > 60; GLUCOSE 120 MG/DL (70-105); POTASSIUM 4.2 MMOL/L (3.6-5.0); SODIUM 139 MMOL/L (135-145); TOTAL PROTEIN 7.9 GM/DL (6.4-8.2)
[~2018-03-13 10:49] MED LIST changes: -RT-ALBUTEROL SULF 2.5 MG/3 ML PRE-MIX VIAL INH ONE; -RT-ALBUTEROL SULF 2.5 MG/3 ML PRE-MIX VIAL ONE
[2018-03-13 11:00] LABS: BASOPHILS # (AUTO) 0.2 10^3/uL (0.0-0.1); BASOPHILS % (AUTO) 3 % (0-10); EOSINOPHILS # (AUTO) 0.6 10^3/uL (0.0-0.3); EOSINOPHILS % (AUTO) 8 % (0-10); HEMATOCRIT 37 % (40-54); HEMOGLOBIN 11.6 G/DL (13.3-17.7); LYMPHOCYTES # (AUTO) 2.4 X 10^3 (1.0-4.0); LYMPHOCYTES % (AUTO) 33 % (12-44); MEAN CORPUSCULAR HEMOGLOBIN 25 PG (25-34); MEAN CORPUSCULAR HGB CONC 32 G/DL (32-36); MEAN CORPUSCULAR VOLUME 81 FL (80-99); MEAN PLATELET VOLUME 10.3 FL (7.4-10.4); MONOCYTES % (AUTO) 14 % (0-12); NEUTROPHILS # (AUTO) 3.3 X 10^3 (1.8-7.8); NEUTROPHILS % (AUTO) 43 % (42-75); PLATELET COUNT 326 10^3/uL (130-400); RED BLOOD COUNT 4.57 10^6/uL (4.35-5.85); RED CELL DISTRIBUTION WIDTH 21.1 % (10.0-14.5); WHITE BLOOD COUNT 7.5 10^3/uL (4.3-11.0)
[2018-03-13 11:21] LABS: ALANINE AMINOTRANSFERASE 33 U/L (0-55); ALKALINE PHOSPHATASE 81 U/L (40-136); BILIRUBIN,TOTAL 0.5 MG/DL (0.1-1.0); BUN/CREATININE RATIO 12; CALCIUM 9.5 MG/DL (8.5-10.1); CARBON DIOXIDE 26 MMOL/L (21-32); CHLORIDE 106 MMOL/L (98-107); CREATININE SERUM 0.82 MG/DL (0.60-1.30); GFR ESTIMATED > 60; GLUCOSE 110 MG/DL (70-105); POTASSIUM 4.3 MMOL/L (3.6-5.0); SODIUM 137 MMOL/L (135-145)
== END 2018-03-19 | disposition home or self-care (01) ==
LOC: ONC 10:49
PROVIDERS: ATTEND Internal Medicine Hematology & Oncology
DX: C18.6 Malignant neoplasm of descending colon (principal); I25.10 Atherosclerotic heart disease of native coronary artery without angina pectoris; I10 Essential (primary) hypertension; E78.00 Pure hypercholesterolemia, unspecified; F17.290 Nicotine dependence, other tobacco product, uncomplicated; I25.2 Old myocardial infarction; Z95.5 Presence of coronary angioplasty implant and graft; Z79.82 Long term (current) use of aspirin; Z79.899 Other long term (current) drug therapy
CPT/HCPCS: 36415; 80053; 82378; 85025; 99213

== ENCOUNTER 2018-06-12 10:50 | Outpatient (RCR) | payer MEDICAID ==
[2018-06-12 11:01] LABS: BASOPHILS # (AUTO) 0.3 10^3/uL (0.0-0.1); BASOPHILS % (AUTO) 3 % (0-10); EOSINOPHILS # (AUTO) 0.9 10^3/uL (0.0-0.3); EOSINOPHILS % (AUTO) 9 % (0-10); HEMATOCRIT 40 % (40-54); HEMOGLOBIN 12.6 G/DL (13.3-17.7); LYMPHOCYTES # (AUTO) 2.5 X 10^3 (1.0-4.0); LYMPHOCYTES % (AUTO) 26 % (12-44); MEAN CORPUSCULAR HEMOGLOBIN 26 PG (25-34); MEAN CORPUSCULAR HGB CONC 31 G/DL (32-36); MEAN CORPUSCULAR VOLUME 83 FL (80-99); MEAN PLATELET VOLUME 10.8 FL (7.4-10.4); MONOCYTES # (AUTO) 0.8 X 10^3 (0.0-1.0); MONOCYTES % (AUTO) 9 % (0-12); NEUTROPHILS % (AUTO) 53 % (42-75); PLATELET COUNT 285 10^3/uL (130-400); RED CELL DISTRIBUTION WIDTH 16.1 % (10.0-14.5); WHITE BLOOD COUNT 9.4 10^3/uL (4.3-11.0)
[2018-06-12 11:23] LABS: ALANINE AMINOTRANSFERASE 52 U/L (0-55); ALKALINE PHOSPHATASE 102 U/L (40-136); BILIRUBIN,TOTAL 0.3 MG/DL (0.1-1.0); BUN/CREATININE RATIO 17; CARBON DIOXIDE 24 MMOL/L (21-32); CHLORIDE 105 MMOL/L (98-107); CREATININE SERUM 0.86 MG/DL (0.60-1.30); GFR ESTIMATED > 60; GLUCOSE 124 MG/DL (70-105); POTASSIUM 4.1 MMOL/L (3.6-5.0); SODIUM 138 MMOL/L (135-145); TOTAL PROTEIN 8.2 GM/DL (6.4-8.2)
== END 2018-09-10 | disposition home or self-care (01) ==
LOC: ONC 10:50
PROVIDERS: ATTEND Internal Medicine Hematology & Oncology
DX: C18.6 Malignant neoplasm of descending colon (principal); I25.10 Atherosclerotic heart disease of native coronary artery without angina pectoris; I10 Essential (primary) hypertension; E78.00 Pure hypercholesterolemia, unspecified; F17.290 Nicotine dependence, other tobacco product, uncomplicated; I25.2 Old myocardial infarction; Z95.5 Presence of coronary angioplasty implant and graft; Z79.82 Long term (current) use of aspirin; Z79.899 Other long term (current) drug therapy
CPT/HCPCS: 36415; 80053; 82378; 85025; 99213

== ENCOUNTER 2018-10-10 10:13 | Outpatient (RCR) | payer MEDICAID ==
[2018-10-10 10:24] LABS: BASOPHILS # (AUTO) 0.2 10^3/uL (0.0-0.1); BASOPHILS % (AUTO) 3 % (0-10); EOSINOPHILS # (AUTO) 0.6 10^3/uL (0.0-0.3); EOSINOPHILS % (AUTO) 9 % (0-10); HEMATOCRIT 38 % (40-54); HEMOGLOBIN 11.6 G/DL (13.3-17.7); LYMPHOCYTES # (AUTO) 2.2 X 10^3 (1.0-4.0); LYMPHOCYTES % (AUTO) 33 % (12-44); MEAN CORPUSCULAR HEMOGLOBIN 25 PG (25-34); MEAN CORPUSCULAR HGB CONC 31 G/DL (32-36); MEAN CORPUSCULAR VOLUME 80 FL (80-99); MEAN PLATELET VOLUME 11.1 FL (7.4-10.4); MONOCYTES # (AUTO) 0.8 X 10^3 (0.0-1.0); MONOCYTES % (AUTO) 12 % (0-12); NEUTROPHILS # (AUTO) 2.9 X 10^3 (1.8-7.8); NEUTROPHILS % (AUTO) 43 % (42-75); PLATELET COUNT 289 10^3/uL (130-400); WHITE BLOOD COUNT 6.7 10^3/uL (4.3-11.0)
[2018-10-10 10:43] LABS: BUN/CREATININE RATIO 12; CALCIUM 9.7 MG/DL (8.5-10.1); CARBON DIOXIDE 26 MMOL/L (21-32); CHLORIDE 108 MMOL/L (98-107); CREATININE SERUM 0.91 MG/DL (0.60-1.30); GFR ESTIMATED > 60; GLUCOSE 120 MG/DL (70-105); POTASSIUM 5.1 MMOL/L (3.6-5.0); SODIUM 144 MMOL/L (135-145)
[2018-10-10 10:44] LABS: ALANINE AMINOTRANSFERASE 44 U/L (0-55); ALBUMIN 4.2 GM/DL (3.2-4.5); ALKALINE PHOSPHATASE 102 U/L (40-136); BILIRUBIN,TOTAL 0.4 MG/DL (0.1-1.0); TOTAL PROTEIN 8.3 GM/DL (6.4-8.2)
== END 2019-01-08 | disposition home or self-care (01) ==
LOC: ONC 10:13
PROVIDERS: ATTEND Internal Medicine Hematology & Oncology
DX: C18.6 Malignant neoplasm of descending colon (principal); I25.10 Atherosclerotic heart disease of native coronary artery without angina pectoris; I10 Essential (primary) hypertension; E78.00 Pure hypercholesterolemia, unspecified; F17.290 Nicotine dependence, other tobacco product, uncomplicated; I25.2 Old myocardial infarction; Z95.5 Presence of coronary angioplasty implant and graft; Z79.82 Long term (current) use of aspirin; Z79.899 Other long term (current) drug therapy
CPT/HCPCS: 36415; 80053; 82378; 85025; 99213

== ENCOUNTER 2019-02-27 08:17 | Outpatient (RCR) | payer MEDICAID, OTHER ==
[2019-02-27 08:34] LABS: BASOPHILS # (AUTO) 0.1 10^3/uL (0.0-0.1); BASOPHILS % (AUTO) 2 % (0-10); EOSINOPHILS # (AUTO) 0.7 10^3/uL (0.0-0.3); EOSINOPHILS % (AUTO) 9 % (0-10); HEMATOCRIT 40 % (40-54); HEMOGLOBIN 12.1 G/DL (13.3-17.7); LYMPHOCYTES # (AUTO) 2.2 X 10^3 (1.0-4.0); LYMPHOCYTES % (AUTO) 29 % (12-44); MEAN CORPUSCULAR HEMOGLOBIN 24 PG (25-34); MEAN CORPUSCULAR HGB CONC 31 G/DL (32-36); MEAN CORPUSCULAR VOLUME 80 FL (80-99); MEAN PLATELET VOLUME 11.1 FL (7.4-10.4); MONOCYTES # (AUTO) 0.7 X 10^3 (0.0-1.0); MONOCYTES % (AUTO) 9 % (0-12); NEUTROPHILS % (AUTO) 52 % (42-75); PLATELET COUNT 315 10^3/uL (130-400); RED CELL DISTRIBUTION WIDTH 17.1 % (10.0-14.5); WHITE BLOOD COUNT 7.6 10^3/uL (4.3-11.0)
[2019-02-27 08:59] LABS: ALANINE AMINOTRANSFERASE 63 U/L (0-55); ALKALINE PHOSPHATASE 123 U/L (40-136); BILIRUBIN,TOTAL 0.3 MG/DL (0.1-1.0); BUN/CREATININE RATIO 17; CARBON DIOXIDE 28 MMOL/L (21-32); CHLORIDE 103 MMOL/L (98-107); CREATININE SERUM 0.82 MG/DL (0.60-1.30); GFR ESTIMATED > 60; GLUCOSE 132 MG/DL (70-105); POTASSIUM 3.8 MMOL/L (3.6-5.0); SODIUM 139 MMOL/L (135-145); TOTAL PROTEIN 8.6 GM/DL (6.4-8.2)
== END 2019-05-28 | disposition home or self-care (01) ==
LOC: ONC 08:17
PROVIDERS: ATTEND Internal Medicine Hematology & Oncology
DX: C18.6 Malignant neoplasm of descending colon (principal); I25.10 Atherosclerotic heart disease of native coronary artery without angina pectoris; I10 Essential (primary) hypertension; E78.00 Pure hypercholesterolemia, unspecified; F17.290 Nicotine dependence, other tobacco product, uncomplicated; I25.2 Old myocardial infarction; Z95.5 Presence of coronary angioplasty implant and graft; Z79.82 Long term (current) use of aspirin; Z79.899 Other long term (current) drug therapy
CPT/HCPCS: 36415; 80053; 82378; 85025; 99213

== ENCOUNTER → 2019-03-04 | Outpatient (CLI) | payer OTHER ==
[~2019-03-04] MED LIST changes: +BARIUM SUSPENSION 2.1% (VANILLA SILQ) 450 ML PO ONE; +HOLD METFORMIN - RECEIVED CONTRAST 20 ML VIAL IV SCH; +IOHEXOL 350 MG/ML 100 ML (OMNIPAQUE 350) VIAL IV ONE; +NS 100 ML (IVPB) BAG IV ONE
--- NOTE | 2019-03-04 12:08 | Diagnostic Imaging Report ---
PROCEDURE: CT chest with contrast, CT abdomen and pelvis with and without contrast. TECHNIQUE: Pre and post intravenous contrast axial imaging of the abdomen and pelvis and post contrast axial imaging of the chest were performed. Auto Exposure Controls were utilized during the CT exam to meet ALARA standards for radiation dose reduction. INDICATION: Colorectal carcinoma. FINDINGS: The previous CT abdomen/pelvis exam of 06/03/2017 noted partial obstruction of the colon due to an area of wall thickening in the mid portion of the descending colon. The patient was subsequently diagnosed with colorectal carcinoma. In the interval since the prior exam, the patient has undergone a resection of the colon. The anastomosis in the mid abdomen appears intact, and there is no distortion of the perianastomotic fat to suggest edema or inflammation. The prior exam did reveal cholelithiasis without evidence for acute cholecystitis. On this study, the number of calculi within the gallbladder has increased. The gallbladder itself is not well distended and difficult to assess. The liver is of lower density than usually seen, and the liver is mildly enlarged. This appearance does suggest fatty metamorphosis. There is no focal mass involving the liver to indicate metastatic disease. The spleen, pancreas, adrenals, kidneys, aorta, and inferior vena cava show no sign of an acute abnormality. There is a 4 mm nonobstructive calculus within the right kidney. The stomach is filled with oral contrast and consequently difficult to assess. There is no pelvic mass or free fluid collection evident. The urinary bladder and prostate gland are grossly unremarkable. The appendix was not well visualized, but there are no indirect signs of acute appendicitis. There are no prior CT chest examinations available for comparison. There is a 1.2 cm rounded calcification along the periphery of the right upper lung. There is also some thickening of the pleura in this area. These findings may be a sequela of prior inflammatory/infectious process. There are also a few other small dense or calcified nodules scattered throughout both lungs. These too may be related to a prior infectious process. There is no parenchymal lung mass to suggest metastatic disease. There is no evidence for failure, pneumonia, or pleural effusion. The heart size is within normal limits. Coronary artery calcifications are evident. The aorta is not abnormally dilated, and there is no sign of a dissection. The pulmonary arteries were not fully opacified and consequently difficult to assess. There is no obvious defect to suggest a pulmonary embolus. There are a few calcified hilar nodes on the right. There is no mediastinal or hilar adenopathy. The thyroid gland is unremarkable. The bone windows show no evidence for a fracture or for a destructive lesion. IMPRESSION: 1. There are postsurgical changes consistent with an interval partial colectomy. The anastomosis appears to be intact. 2. There is no evidence for an acute abnormality of the chest, abdomen, or pelvis. 3. There is no sign of metastatic disease. Dictated by: Dictated on workstation # [id number]
== END ==
LOC: RAD 07:33
PROVIDERS: ATTEND Internal Medicine Hematology & Oncology
DX: C19 Malignant neoplasm of rectosigmoid junction (principal); Z90.49 Acquired absence of other specified parts of digestive tract; Z98.890 Other specified postprocedural states
CPT/HCPCS: 71260; 74178

== ENCOUNTER 2019-06-13 08:52 | Outpatient (RCR) | payer MEDICAID, OTHER ==
[~2019-06-13 08:52] MED LIST changes: -BARIUM SUSPENSION 2.1% (VANILLA SILQ) 450 ML PO ONE; -ENAL5TAB PO; +ENLP5T PO; -HOLD METFORMIN - RECEIVED CONTRAST 20 ML VIAL IV SCH; -IOHEXOL 350 MG/ML 100 ML (OMNIPAQUE 350) VIAL IV ONE; -NS 100 ML (IVPB) BAG IV ONE; -ROPI2TAB4 PO; +ROPI2TAB6 PO
[2019-06-13 09:17] LABS: BASOPHILS # (AUTO) 0.2 10^3/uL (0.0-0.1); BASOPHILS % (AUTO) 3 % (0-10); EOSINOPHILS # (AUTO) 0.7 10^3/uL (0.0-0.3); EOSINOPHILS % (AUTO) 8 % (0-10); HEMATOCRIT 41 % (40-54); HEMOGLOBIN 12.8 G/DL (13.3-17.7); LYMPHOCYTES # (AUTO) 2.3 X 10^3 (1.0-4.0); LYMPHOCYTES % (AUTO) 27 % (12-44); MEAN CORPUSCULAR HEMOGLOBIN 25 PG (25-34); MEAN CORPUSCULAR HGB CONC 31 G/DL (32-36); MEAN CORPUSCULAR VOLUME 82 FL (80-99); MEAN PLATELET VOLUME 11.5 FL (7.4-10.4); MONOCYTES # (AUTO) 0.8 X 10^3 (0.0-1.0); MONOCYTES % (AUTO) 9 % (0-12); NEUTROPHILS # (AUTO) 4.4 X 10^3 (1.8-7.8); NEUTROPHILS % (AUTO) 53 % (42-75); PLATELET COUNT 268 10^3/uL (130-400); RED CELL DISTRIBUTION WIDTH 18.4 % (10.0-14.5); WHITE BLOOD COUNT 8.3 10^3/uL (4.3-11.0)
[2019-06-13 09:39] LABS: ALANINE AMINOTRANSFERASE 52 U/L (0-55); ALBUMIN 3.8 GM/DL (3.2-4.5); ALKALINE PHOSPHATASE 130 U/L (40-136); BILIRUBIN,TOTAL 0.5 MG/DL (0.1-1.0); BUN/CREATININE RATIO 12; CALCIUM 8.9 MG/DL (8.5-10.1); CARBON DIOXIDE 27 MMOL/L (21-32); CHLORIDE 100 MMOL/L (98-107); CREATININE SERUM 0.82 MG/DL (0.60-1.30); GFR ESTIMATED > 60; GLUCOSE 248 MG/DL (70-105); POTASSIUM 4.1 MMOL/L (3.6-5.0); SODIUM 135 MMOL/L (135-145); TOTAL PROTEIN 8.1 GM/DL (6.4-8.2)
== END 2019-09-11 | disposition home or self-care (01) ==
LOC: ONC 08:52
PROVIDERS: ATTEND Internal Medicine Hematology & Oncology
DX: C18.6 Malignant neoplasm of descending colon (principal); I25.10 Atherosclerotic heart disease of native coronary artery without angina pectoris; I11.0 Hypertensive heart disease with heart failure; E78.00 Pure hypercholesterolemia, unspecified; F17.290 Nicotine dependence, other tobacco product, uncomplicated; I25.2 Old myocardial infarction; D50.9 Iron deficiency anemia, unspecified; I50.9 Heart failure, unspecified; Z95.5 Presence of coronary angioplasty implant and graft; Z79.82 Long term (current) use of aspirin; Z79.899 Other long term (current) drug therapy; Z90.49 Acquired absence of other specified parts of digestive tract; Z98.890 Other specified postprocedural states
CPT/HCPCS: 80053; 82378; 85025; 99213

== ENCOUNTER → 2019-06-20 | Outpatient (CLI) | payer OTHER ==
[~2019-06-20] MED LIST changes: +ENAL5TAB PO; -ENLP5T PO; +ROPI2TAB4 PO; -ROPI2TAB6 PO
[2019-06-20 09:25] LABS: ALANINE AMINOTRANSFERASE 61 U/L (0-55); ALBUMIN 3.8 GM/DL (3.2-4.5); ALKALINE PHOSPHATASE 140 U/L (40-136); BILIRUBIN,TOTAL 0.4 MG/DL (0.1-1.0); BUN/CREATININE RATIO 13; CALCIUM 9.3 MG/DL (8.5-10.1); CARBON DIOXIDE 26 MMOL/L (21-32); CHLORIDE 100 MMOL/L (98-107); CHOLESTEROL 141 MG/DL (< 200); CREATININE SERUM 1.01 MG/DL (0.60-1.30); GFR ESTIMATED > 60; GLUCOSE 321 MG/DL (70-105); HDL CHOLESTEROL 45 MG/DL (40-60); POTASSIUM 4.9 MMOL/L (3.6-5.0); SODIUM 137 MMOL/L (135-145); TOTAL PROTEIN 8.2 GM/DL (6.4-8.2); TRIGLYCERIDES 140 MG/DL (<150); VLDL CHOLESTEROL 28 MG/DL (5-40)
== END ==
LOC: CARD 08:54
PROVIDERS: ATTEND Physician Assistant
DX: I25.10 Atherosclerotic heart disease of native coronary artery without angina pectoris (principal); R07.9 Chest pain, unspecified; I11.0 Hypertensive heart disease with heart failure; I50.22 Chronic systolic (congestive) heart failure; E78.5 Hyperlipidemia, unspecified
CPT/HCPCS: 36415; 80053; 80061; 93306

== ENCOUNTER → 2019-07-21 | Outpatient (CLI) | payer MEDICAID ==
[~2019-07-21] VITALS: Ht 167 cm; Wt 100.0 kg
[~2019-07-21] MED LIST changes: +CATHETER FLUSH 10 ML SYR IV PRN; -ENAL5TAB PO; +ENLP5T PO
== END ==
LOC: CARD 07:22
PROVIDERS: ATTEND Physician Assistant
DX: I25.10 Atherosclerotic heart disease of native coronary artery without angina pectoris (principal); I11.0 Hypertensive heart disease with heart failure; I50.22 Chronic systolic (congestive) heart failure; E78.5 Hyperlipidemia, unspecified

== ENCOUNTER 2020-02-04 10:47 | Outpatient (RCR) | payer MEDICAID, OTHER ==
[~2020-02-04 10:47] MED LIST changes: +ASPI-1238 PO; -ASPI-983 PO; -CATHETER FLUSH 10 ML SYR IV PRN; -PANT40TA3 PO; +PANT40TA52 PO; -ROPI2TAB4 PO; +ROPI2TAB6 PO
[2020-02-04 11:10] LABS: BASOPHILS # (AUTO) 0.1 10^3/uL (0.0-0.1); BASOPHILS % (AUTO) 2 % (0-10); EOSINOPHILS # (AUTO) 0.6 10^3/uL (0.0-0.3); EOSINOPHILS % (AUTO) 9 % (0-10); HEMATOCRIT 44 % (40-54); LYMPHOCYTES # (AUTO) 2.1 X 10^3 (1.0-4.0); LYMPHOCYTES % (AUTO) 33 % (12-44); MEAN CORPUSCULAR HEMOGLOBIN 32 PG (25-34); MEAN CORPUSCULAR HGB CONC 34 G/DL (32-36); MEAN CORPUSCULAR VOLUME 94 FL (80-99); MEAN PLATELET VOLUME 11.4 FL (7.4-10.4); MONOCYTES # (AUTO) 0.8 X 10^3 (0.0-1.0); MONOCYTES % (AUTO) 13 % (0-12); NEUTROPHILS # (AUTO) 2.8 X 10^3 (1.8-7.8); NEUTROPHILS % (AUTO) 44 % (42-75); PLATELET COUNT 221 10^3/uL (130-400); WHITE BLOOD COUNT 6.3 10^3/uL (4.3-11.0)
[2020-02-04 11:34] LABS: ALANINE AMINOTRANSFERASE 137 U/L (0-55); ALBUMIN 3.6 GM/DL (3.2-4.5); ALKALINE PHOSPHATASE 103 U/L (40-136); BILIRUBIN,TOTAL 0.6 MG/DL (0.1-1.0); BUN/CREATININE RATIO 14; CALCIUM 8.7 MG/DL (8.5-10.1); CARBON DIOXIDE 23 MMOL/L (21-32); CHLORIDE 103 MMOL/L (98-107); CREATININE SERUM 0.74 MG/DL (0.60-1.30); GFR ESTIMATED > 60; GLUCOSE 170 MG/DL (70-105); POTASSIUM 4.2 MMOL/L (3.6-5.0); SODIUM 136 MMOL/L (135-145)
== END 2020-03-19 08:22 | disposition home or self-care (01) ==
LOC: ONC 10:47
PROVIDERS: ATTEND Internal Medicine Hematology & Oncology
DX: C18.6 Malignant neoplasm of descending colon (principal); I25.10 Atherosclerotic heart disease of native coronary artery without angina pectoris; I11.0 Hypertensive heart disease with heart failure; E78.00 Pure hypercholesterolemia, unspecified; I25.2 Old myocardial infarction; D50.9 Iron deficiency anemia, unspecified; E78.5 Hyperlipidemia, unspecified; I50.9 Heart failure, unspecified; F17.290 Nicotine dependence, other tobacco product, uncomplicated; Z95.5 Presence of coronary angioplasty implant and graft; Z79.82 Long term (current) use of aspirin; Z79.899 Other long term (current) drug therapy; Z90.49 Acquired absence of other specified parts of digestive tract; Z98.890 Other specified postprocedural states
CPT/HCPCS: 80053; 82378; 85025; 99213

== ENCOUNTER → 2020-08-05 | Outpatient (CLI) | payer MEDICAID, OTHER | LOC: CARD 14:00 | PROVIDERS: ATTEND Internal Medicine Cardiovascular Disease | DX: I10 Essential (primary) hypertension (principal); I65.23 Occlusion and stenosis of bilateral carotid arteries; R07.9 Chest pain, unspecified | CPT/HCPCS: 93306 ==

== ENCOUNTER 2020-11-09 09:39 | Outpatient (RCR) | payer MEDICARE, MEDICAID, OTHER ==
[2020-08-13 09:00] LABS: BASOPHILS # (AUTO) 0.2 10^3/uL (0.0-0.1); BASOPHILS % (AUTO) 2 % (0-10); EOSINOPHILS # (AUTO) 0.8 10^3/uL (0.0-0.3); EOSINOPHILS % (AUTO) 10 % (0-10); HEMATOCRIT 46 % (40-54); HEMOGLOBIN 15.3 g/dL (13.3-17.7); LYMPHOCYTES # (AUTO) 2.5 10^3/uL (1.0-4.0); LYMPHOCYTES % (AUTO) 33 % (12-44); MEAN CORPUSCULAR HEMOGLOBIN 32 pg (25-34); MEAN CORPUSCULAR HGB CONC 34 g/dL (32-36); MEAN CORPUSCULAR VOLUME 96 fL (80-99); MONOCYTES # (AUTO) 0.9 10^3/uL (0.0-1.0); MONOCYTES % (AUTO) 12 % (0-12); NEUTROPHILS # (AUTO) 3.3 10^3/uL (1.8-7.8); NEUTROPHILS % (AUTO) 43 % (42-75); PLATELET COUNT 257 10^3/uL (130-400); WHITE BLOOD COUNT 7.5 10^3/uL (4.3-11.0)
[2020-08-13 09:25] LABS: ALANINE AMINOTRANSFERASE 109 U/L (0-55); ALBUMIN 3.8 GM/DL (3.2-4.5); ALKALINE PHOSPHATASE 99 U/L (40-136); BILIRUBIN,TOTAL 0.4 MG/DL (0.1-1.0); BUN/CREATININE RATIO 12; CARBON DIOXIDE 26 MMOL/L (21-32); CHLORIDE 103 MMOL/L (98-107); CREATININE SERUM 0.83 MG/DL (0.60-1.30); GFR ESTIMATED > 60; GLUCOSE 122 MG/DL (70-105); POTASSIUM 4.3 MMOL/L (3.6-5.0); SODIUM 139 MMOL/L (135-145); TOTAL PROTEIN 8.6 GM/DL (6.4-8.2)
[2020-11-09 09:51] LABS: BASOPHILS # (AUTO) 0.2 10^3/uL (0.0-0.1); BASOPHILS % (AUTO) 3 % (0-10); EOSINOPHILS # (AUTO) 0.6 10^3/uL (0.0-0.3); EOSINOPHILS % (AUTO) 9 % (0-10); HEMATOCRIT 42 % (40-54); HEMOGLOBIN 13.9 g/dL (13.3-17.7); LYMPHOCYTES # (AUTO) 2.1 10^3/uL (1.0-4.0); LYMPHOCYTES % (AUTO) 31 % (12-44); MEAN CORPUSCULAR HEMOGLOBIN 31 pg (25-34); MEAN CORPUSCULAR HGB CONC 33 g/dL (32-36); MEAN CORPUSCULAR VOLUME 95 fL (80-99); MEAN PLATELET VOLUME 11.6 fL (9.0-12.2); MONOCYTES # (AUTO) 0.9 10^3/uL (0.0-1.0); MONOCYTES % (AUTO) 13 % (0-12); NEUTROPHILS % (AUTO) 44 % (42-75); PLATELET COUNT 206 10^3/uL (130-400); WHITE BLOOD COUNT 6.9 10^3/uL (4.3-11.0)
[2020-11-09 10:23] LABS: ALANINE AMINOTRANSFERASE 86 U/L (0-55); ALBUMIN 3.6 GM/DL (3.2-4.5); ALKALINE PHOSPHATASE 111 U/L (40-136); BILIRUBIN,TOTAL 0.5 MG/DL (0.1-1.0); BUN/CREATININE RATIO 10; CALCIUM 8.7 MG/DL (8.5-10.1); CARBON DIOXIDE 25 MMOL/L (21-32); CHLORIDE 105 MMOL/L (98-107); CREATININE SERUM 0.73 MG/DL (0.60-1.30); GFR ESTIMATED > 60; GLUCOSE 138 MG/DL (70-105); SODIUM 138 MMOL/L (135-145); TOTAL PROTEIN 7.8 GM/DL (6.4-8.2)
== END 2020-11-11 | disposition home or self-care (01) ==
LOC: ONC 09:39
PROVIDERS: ATTEND Internal Medicine Hematology & Oncology
DX: C18.7 Malignant neoplasm of sigmoid colon (principal); B18.2 Chronic viral hepatitis C; K76.89 Other specified diseases of liver
CPT/HCPCS: 80053; 82378; 85025; G0463; 99213

== ENCOUNTER → 2021-02-07 | Outpatient (CLI) | payer MEDICARE, MEDICAID, OTHER ==
[2021-02-07 09:30] LABS: BASOPHILS # (AUTO) 0.2 10^3/uL (0.0-0.1); BASOPHILS % (AUTO) 3 % (0-10); EOSINOPHILS # (AUTO) 0.6 10^3/uL (0.0-0.3); EOSINOPHILS % (AUTO) 9 % (0-10); HEMATOCRIT 44 % (40-54); HEMOGLOBIN 14.1 g/dL (13.3-17.7); LYMPHOCYTES # (AUTO) 2.3 10^3/uL (1.0-4.0); LYMPHOCYTES % (AUTO) 32 % (12-44); MEAN CORPUSCULAR HEMOGLOBIN 30 pg (25-34); MEAN CORPUSCULAR HGB CONC 32 g/dL (32-36); MEAN CORPUSCULAR VOLUME 94 fL (80-99); MONOCYTES # (AUTO) 0.7 10^3/uL (0.0-1.0); MONOCYTES % (AUTO) 10 % (0-12); NEUTROPHILS # (AUTO) 3.2 10^3/uL (1.8-7.8); NEUTROPHILS % (AUTO) 46 % (42-75); PLATELET COUNT 252 10^3/uL (130-400)
[2021-02-07 09:49] LABS: ALBUMIN 3.8 GM/DL (3.2-4.5); BILIRUBIN,TOTAL 0.6 MG/DL (0.1-1.0); CALCIUM 9.2 MG/DL (8.5-10.1); CREATININE SERUM 0.82 MG/DL (0.60-1.30); TOTAL PROTEIN 8.5 GM/DL (6.4-8.2)
== END ==
LOC: EDSTATUS 11-12 08:22 → ONC 09:19
PROVIDERS: ATTEND Internal Medicine Hematology & Oncology
DX: C18.7 Malignant neoplasm of sigmoid colon (principal); B18.2 Chronic viral hepatitis C; I11.0 Hypertensive heart disease with heart failure; I50.22 Chronic systolic (congestive) heart failure; I25.10 Atherosclerotic heart disease of native coronary artery without angina pectoris; E78.2 Mixed hyperlipidemia; I27.20 Pulmonary hypertension, unspecified; Z72.0 Tobacco use; Z90.49 Acquired absence of other specified parts of digestive tract
CPT/HCPCS: 80053; 82378; 85025; G0463; 99213

== ENCOUNTER → 2021-08-24 | Outpatient (CLI) | payer MEDICARE, MEDICAID, OTHER ==
[2021-08-24 09:36] LABS: BASOPHILS # (AUTO) 0.2 10^3/uL (0.0-0.1); BASOPHILS % (AUTO) 3 % (0-10); EOSINOPHILS # (AUTO) 0.5 10^3/uL (0.0-0.3); EOSINOPHILS % (AUTO) 8 % (0-10); HEMATOCRIT 41 % (40-54); HEMOGLOBIN 12.8 g/dL (13.3-17.7); LYMPHOCYTES # (AUTO) 2.3 10^3/uL (1.0-4.0); LYMPHOCYTES % (AUTO) 36 % (12-44); MEAN CORPUSCULAR HEMOGLOBIN 27 pg (25-34); MEAN CORPUSCULAR HGB CONC 32 g/dL (32-36); MEAN CORPUSCULAR VOLUME 86 fL (80-99); MEAN PLATELET VOLUME 11.2 fL (9.0-12.2); MONOCYTES # (AUTO) 0.9 10^3/uL (0.0-1.0); MONOCYTES % (AUTO) 14 % (0-12); NEUTROPHILS # (AUTO) 2.5 10^3/uL (1.8-7.8); NEUTROPHILS % (AUTO) 39 % (42-75); PLATELET COUNT 273 10^3/uL (130-400); WHITE BLOOD COUNT 6.4 10^3/uL (4.3-11.0)
[2021-08-24 10:02] LABS: ALBUMIN 4.1 GM/DL (3.2-4.5); BILIRUBIN,TOTAL 0.4 MG/DL (0.1-1.0); CALCIUM 9.3 MG/DL (8.5-10.1); CREATININE SERUM 0.82 MG/DL (0.60-1.30)
== END ==
LOC: ONC 09:31
PROVIDERS: ATTEND Internal Medicine Hematology & Oncology
DX: C18.7 Malignant neoplasm of sigmoid colon (principal); D64.9 Anemia, unspecified; B18.2 Chronic viral hepatitis C; I10 Essential (primary) hypertension; E78.2 Mixed hyperlipidemia
CPT/HCPCS: 80053; 82378; 82728; 83540; 83550; 85025; G0463; 36415; 99213

== ENCOUNTER → 2021-08-29 | Outpatient (CLI) | payer MEDICARE, MEDICAID ==
[~2021-08-29] MED LIST changes: +HOLD METFORMIN - RECEIVED CONTRAST 20 ML VIAL IV SCH; +IOHEXOL 350 MG/ML 100 ML (OMNIPAQUE 350) VIAL IV ONE; +NS 100 ML (IVPB) BAG IV ONE
--- NOTE | 2021-08-29 10:45 | Diagnostic Imaging Report ---
PROCEDURE: CT chest with contrast, CT abdomen and pelvis with and without contrast. TECHNIQUE: Pre and post intravenous contrast axial imaging of the abdomen and pelvis and post contrast axial imaging of the chest were performed. Auto Exposure Controls were utilized during the CT exam to meet ALARA standards for radiation dose reduction. INDICATION: Colon cancer. COMPARISON: Exam is compared with study 03/04/2019. FINDINGS: CHEST: Scattered benign pulmonary calcified granulomata are chronic. No noncalcified or suspicious pulmonary nodule. No thoracic adenopathy. There are coronary artery atherosclerotic vascular calcifications. The aorta is nonaneurysmal. No effusion, pneumothorax, or suspicious chest wall pathology. ABDOMEN AND PELVIS: There is fatty infiltration of the liver. The liver's margins and surfaces are somewhat undulating and nodular in its configuration. Cirrhosis cannot be excluded. No liver mass, however. There are gallstones present without bile duct dilatation. The unobstructed kidneys are nonacute. There is a calculus, 5 mm, within the right-sided middle third calyx. The adrenals are negative. Splenic granulomata are chronic. The pancreas is unremarkable. There is no abdominopelvic mesenteric or retroperitoneal adenopathy. Urinary bladder is nearly empty, likely accounting for its wall thickening. There is a fatty inguinal hernia on the right, chronic. There are nonaneurysmal aortic atherosclerotic vascular calcifications, bowel resection, and anastomosis noted without complication. No ascites. No lymphadenopathy. No findings of metastasis. IMPRESSION: CHEST: Stable benign granulomatous residua and atherosclerotic vascular disease. ABDOMEN AND PELVIS: 1. Fatty liver has a somewhat cirrhotic morphology, but no secondary features of portal hypertension and no liver mass. 2. Cholelithiasis without bile duct dilatation, nonobstructing right nephrolithiasis, and surgical changes without complication. No lymphadenopathy or findings of metastasis. Dictated by: Dictated on workstation # [id number]
== END ==
LOC: RAD 09:35
PROVIDERS: ATTEND Internal Medicine Hematology & Oncology
DX: C18.9 Malignant neoplasm of colon, unspecified (principal); I25.10 Atherosclerotic heart disease of native coronary artery without angina pectoris; K80.20 Calculus of gallbladder without cholecystitis without obstruction; N20.0 Calculus of kidney
CPT/HCPCS: 71260; 74178

== ENCOUNTER → 2021-10-13 | Outpatient (CLI) | payer MEDICARE, MEDICAID, OTHER ==
[~2021-10-13] MED LIST changes: -HOLD METFORMIN - RECEIVED CONTRAST 20 ML VIAL IV SCH; -IOHEXOL 350 MG/ML 100 ML (OMNIPAQUE 350) VIAL IV ONE; -NS 100 ML (IVPB) BAG IV ONE
== END ==
LOC: ONC 15:08
PROVIDERS: ATTEND Internal Medicine Hematology & Oncology
DX: C18.7 Malignant neoplasm of sigmoid colon (principal); B18.2 Chronic viral hepatitis C; D50.9 Iron deficiency anemia, unspecified; K70.0 Alcoholic fatty liver; K70.30 Alcoholic cirrhosis of liver without ascites; I10 Essential (primary) hypertension; I25.10 Atherosclerotic heart disease of native coronary artery without angina pectoris; E78.2 Mixed hyperlipidemia; E66.9 Obesity, unspecified
CPT/HCPCS: 99213

== ENCOUNTER 2021-10-20 06:39 | Outpatient (CLI) | payer MEDICARE, MEDICAID ==
[~2021-10-20] VITALS: Ht 167 cm; Wt 89.5 kg
[2021-10-20] MEDS ORDERED: SITA100T12 PO (08:41)
[2021-10-20] MEDS ORDERED: OMEP40CA6 PO (08:41)
[2021-10-20] MEDS ORDERED: AMLO-251 PO (08:41)
[2021-10-20] MEDS ORDERED: METF-397 PO (08:41)
== END 2021-10-20 11:33 | disposition home or self-care (01) ==
LOC: PREOP 06:39
PROVIDERS: ATTEND Surgery
DX: Z01.818 Encounter for other preprocedural examination (principal)

== ENCOUNTER 2021-11-07 10:28 | Day surgery (SDC) | payer MEDICARE, MEDICAID ==
[~2021-11-07] VITALS: Ht 167 cm; Wt 89.5 kg
[~2021-11-07 10:28] MED LIST changes: +AMLO-251 PO; +METF-397 PO; +OMEP40CA6 PO; +SITA100T12 PO
--- NOTE | 2021-11-07 10:43 | Progress Note-Pre Operative ---
Pre-Operative Progress Note H&P Reviewed The H&P was reviewed, patient examined and no changes noted. Time Seen by Provider: 10:41 Date H&P Reviewed: November 07, 2021 Time H&P Reviewed: 10:41 Pre-Operative Diagnosis: hx of colon CA ZAYDA RICHARDS DO November 07, 2021 10:43
[2021-11-07] MEDS ORDERED: LACTATED RINGERS 1,000 ML IV ONE (10:45)
[2021-11-07] MEDS ORDERED: LACTATED RINGERS 1,000 ML IV STA (10:59)
[2021-11-07 11:16] VITALS: BP 143/82
[2021-11-07] MEDS ORDERED: PROPOFOL INJECTION 50 ML IV ONE (11:36)
[2021-11-07] MEDS ORDERED: MIDAZOLAM 2 MG/2 ML (VERSED) VIAL ONE (11:36)
[2021-11-07 11:55] VITALS: BP 102/56
[2021-11-07 12:00] VITALS: BP 121/67
[2021-11-07 12:05] VITALS: BP 121/67
--- NOTE | 2021-11-07 12:08 | Progress Note-Post Operative ---
Post-Operative Progess Note Surgeon (s)/Cardiovascular Or Nurse (s) Surgeon ZAYDA RICHARDS DO Cardiovascular Or Nurse: none Pre-Operative Diagnosis hx of colon CA Post-Operative Diagnosis int hemorrhoids Procedure & Operative Findings Date of Procedure 11/07/21 Procedure Performed/Findings Sigmoidoscopy PROCEDURE NOTE: After informed consent was obtained, the patient was brought to the endoscopy suite, placed in bed in left lateral decubitus position. He was administered IV sedation by the CAN RUNNER who then monitored his vitals the entire time, heart rate, blood pressure and pulse ox and the scope was inserted, pushed all the way to about 70 cm and pushed into the small bowel. I think pt had almost all of his colon removed and may only have small portion of descending colon (if any) and sigmoid colon. I took a picture of small bowel and of what I think was anastomosis. I did not see any polyps or abnormalities and then in the rectal vault I retroflexed the scope. Took picture of the internal hemorrhoids. The patient tolerated the procedure. He was recovered in endoscopy suite. Recommended for repeat colonoscopy in 5 years; depending on when his colon CA was removed. Anesthesia Type IV sedation by CAN RUNNER Estimated Blood Loss Estimated blood loss (mL): none Specimens/Packing Specimens Removed none ZAYDA RICHARDS DO November 07, 2021 12:08
--- NOTE | 2021-11-07 12:20 | Endoscopy Discharge Instruct ---
Endo Procedure/Findings Findings 1.: Internal Hemorrhoids Discharge Instructions - Activity: You might feel a little sleepy until tomorrow. This is due to the me dicine you received to relax you. Until tomorrow, you should: NOT drive a car, operate machinery or power tools. NOT drink any alcoholic beverages. NOT make any important decisions or sign importortant papers. Do not return to work until tomorrow, unless otherwise instructed. Resume previous activities tomorrow. Diet: Start by taking liquids. If you tolerate liquids, advance to solid food. 1.: Colonoscopy in 2 years Notify Physician - If you experience excessive bleeding, unusual abdominal pain, fever, or chest pain, contact your doctor immediately. ZAYDA RICHARDS DO November 07, 2021 12:20
[2021-11-07 12:25] VITALS: BP 120/67
--- NOTE | 2021-11-07 13:11 | Anesthesia-General Post-Op ---
MAC Patient Condition Mental Status/LOC: Same as Preop Cardiovascular: Satisfactory Nausea/Vomiting: Absent Respiratory: Satisfactory Pain: Controlled Complications: Absent Post Op Complications Complications None Follow Up Care/Instructions Patient Instructions None needed. Anesthesiology Discharge Order Discharge Order Patient is doing well, no complaints, stable vital signs, no apparent adverse anesthesia problems. No complications reported per nursing. DEE FELIX CRNA November 07, 2021 13:11
== END 2021-11-07 12:33 | disposition home or self-care (01) ==
LOC: ENDO 10:28
PROVIDERS: ATTEND Surgery
DX: Z12.11 Encounter for screening for malignant neoplasm of colon (principal); K64.8 Other hemorrhoids; E11.9 Type 2 diabetes mellitus without complications; Z79.84 Long term (current) use of oral hypoglycemic drugs; E66.9 Obesity, unspecified; Z68.32 Body mass index [BMI] 32.0-32.9, adult; Z95.5 Presence of coronary angioplasty implant and graft; F17.290 Nicotine dependence, other tobacco product, uncomplicated
CPT/HCPCS: G0104 ×2; 82947

== ENCOUNTER → 2021-12-30 | Outpatient (CLI) | payer MEDICARE, MEDICAID ==
[2021-12-30 09:13] LABS: BASOPHILS # (AUTO) 0.2 10^3/uL (0.0-0.1); BASOPHILS % (AUTO) 3 % (0-10); EOSINOPHILS # (AUTO) 0.5 10^3/uL (0.0-0.3); EOSINOPHILS % (AUTO) 7 % (0-10); HEMATOCRIT 39 % (40-54); HEMOGLOBIN 12.6 g/dL (13.3-17.7); LYMPHOCYTES # (AUTO) 2.1 10^3/uL (1.0-4.0); LYMPHOCYTES % (AUTO) 31 % (12-44); MEAN CORPUSCULAR HEMOGLOBIN 28 pg (25-34); MEAN CORPUSCULAR HGB CONC 32 g/dL (32-36); MEAN CORPUSCULAR VOLUME 87 fL (80-99); MEAN PLATELET VOLUME 11.6 fL (9.0-12.2); MONOCYTES # (AUTO) 0.6 10^3/uL (0.0-1.0); MONOCYTES % (AUTO) 9 % (0-12); NEUTROPHILS # (AUTO) 3.4 10^3/uL (1.8-7.8); NEUTROPHILS % (AUTO) 49 % (42-75); PLATELET COUNT 237 10^3/uL (130-400); WHITE BLOOD COUNT 6.8 10^3/uL (4.3-11.0)
[2021-12-30 09:30] LABS: ALBUMIN 3.6 GM/DL (3.2-4.5); BILIRUBIN,TOTAL 0.5 MG/DL (0.1-1.0); CALCIUM 8.7 MG/DL (8.5-10.1); CREATININE SERUM 0.75 MG/DL (0.60-1.30); POTASSIUM 3.9 MMOL/L (3.6-5.0); TOTAL PROTEIN 7.8 GM/DL (6.4-8.2)
== END ==
LOC: ONC 08:54
PROVIDERS: ATTEND Internal Medicine Hematology & Oncology
DX: C18.7 Malignant neoplasm of sigmoid colon (principal); B18.2 Chronic viral hepatitis C; D50.9 Iron deficiency anemia, unspecified; K76.0 Fatty (change of) liver, not elsewhere classified; I11.0 Hypertensive heart disease with heart failure; I50.22 Chronic systolic (congestive) heart failure; I25.10 Atherosclerotic heart disease of native coronary artery without angina pectoris; E78.2 Mixed hyperlipidemia; E66.9 Obesity, unspecified; Z72.0 Tobacco use
CPT/HCPCS: 80053; 82378; 85025; G0463; 36415; 99213

== ENCOUNTER 2022-06-11 01:38 | Observation (INO) | payer MEDICARE, MEDICAID ==
[~2022-06-11] VITALS: Ht 167.7 cm; Wt 82.1 kg
[~2022-06-11 01:38] MED LIST changes: +ALBU8.5H6 IH; -RT-ALBUINH IH
[2022-06-11] MEDS ORDERED: NITROGLYCERIN 0.4 MG SL TABS BTL 25'S SL PRN ×2 (02:00→09:00)
[2022-06-11] MEDS ORDERED: ASPIRIN 81 MG CHEW (CHILDREN'S ASA) PO ONE (02:00)
[2022-06-11 02:17] LABS: BASOPHILS # (AUTO) 0.2 10^3/uL (0.0-0.1); BASOPHILS % (AUTO) 2 % (0-10); EOSINOPHILS # (AUTO) 0.5 10^3/uL (0.0-0.3); EOSINOPHILS % (AUTO) 7 % (0-10); HEMATOCRIT 45 % (40-54); LYMPHOCYTES # (AUTO) 1.8 10^3/uL (1.0-4.0); LYMPHOCYTES % (AUTO) 24 % (12-44); MEAN CORPUSCULAR HEMOGLOBIN 32 pg (25-34); MEAN CORPUSCULAR HGB CONC 33 g/dL (32-36); MEAN CORPUSCULAR VOLUME 96 fL (80-99); MEAN PLATELET VOLUME 10.9 fL (9.0-12.2); MONOCYTES # (AUTO) 0.9 10^3/uL (0.0-1.0); MONOCYTES % (AUTO) 11 % (0-12); NEUTROPHILS # (AUTO) 4.2 10^3/uL (1.8-7.8); NEUTROPHILS % (AUTO) 55 % (42-75); PLATELET COUNT 268 10^3/uL (130-400); WHITE BLOOD COUNT 7.7 10^3/uL (4.3-11.0)
[2022-06-11 02:26] LABS: ALBUMIN 3.8 GM/DL (3.2-4.5); POTASSIUM 3.8 MMOL/L (3.6-5.0)
[2022-06-11 02:27] LABS: CALCIUM 8.8 MG/DL (8.5-10.1); INR 0.9 (0.8-1.4); PROTHROMBIN TIME PATIENT 13.1 SEC (12.2-14.7)
[2022-06-11 02:29] LABS: TOTAL PROTEIN 8.5 GM/DL (6.4-8.2)
[2022-06-11 02:30] LABS: BILIRUBIN,TOTAL 0.4 MG/DL (0.1-1.0)
[2022-06-11 02:32] LABS: CREATININE SERUM 0.81 MG/DL (0.60-1.30)
[2022-06-11 02:33] LABS: BILIRUBIN,URINE NEGATIVE (NEGATIVE); CLARITY,URINE CLEAR; COLOR,URINE YELLOW; GLUCOSE, URINE (UA) NEGATIVE (NEGATIVE); KETONES,URINE TRACE (NEGATIVE); LEUKOCYTE ESTERASE ,URINE NEGATIVE (NEGATIVE); NITRITE,URINE NEGATIVE (NEGATIVE); PH,URINE 5.5 (5-9); PROTEIN,URINE TRACE (NEGATIVE)
[2022-06-11 02:35] LABS: MAGNESIUM 2.1 MG/DL (1.6-2.4)
[2022-06-11 02:43] LABS: CREATINE KINASE MB 1.7 NG/ML (<6.6)
[2022-06-11 02:55] LABS: BACTERIA,URINE FEW /HPF; WBC,URINE 0-2 /HPF
[2022-06-11 02:56] LABS: AMPHETAMINE SCREEN, URINE NEGATIVE (NEGATIVE); BARBITURATE SCREEN URINE NEGATIVE (NEGATIVE); BENZODIAZEPINES SCREEN URINE NEGATIVE (NEGATIVE); CANNABINOID SCREEN, URINE POSITIVE (NEGATIVE); COCAINE SCREEN URINE NEGATIVE (NEGATIVE); METHADONE STAT NEGATIVE (NEGATIVE); OPIATE SCREEN URINE NEGATIVE (NEGATIVE); OXYCODONE STAT NEGATIVE (NEGATIVE); PROPOXYPHENE STAT NEGATIVE (NEGATIVE); TRICYCLIC ANTIDEPRESSANTS SCRE NEGATIVE (NEGATIVE)
--- NOTE | 2022-06-11 05:15 | ED Chest Pain ---
General Chief Complaint: Chest Pain Stated Complaint: CP Nursing Triage Note: TO ED VIA POV AND AMBULATORY TO ROOM 3 WITH C/O CP FOR 3 DAYS THAT BECAME WORSE TONIGHT. C/O SOA. Source: patient History of Present Illness Date Seen by Provider: Jun 11, 2022 Time Seen by Provider: 01:48 Initial Comments PT ARRIVES VIA POV FROM HOME C/O DIFFUSE ANTERIOR CHEST PAIN FOR THE LAST 2-3 DAYS ALSO HAS BEEN HAVING SHORTNESS OF BREATH FOR THE LAST 2-3 DAYS SYMPTOMS WORSE WITH EXERTION FOR THE LAST 3-4 HOURS THE PAIN HAS INCREASED, AND PAIN IS NOW RADIATING THROUGH TO BACK AND DOWN LEFT ARM, ALONG WITH NAUSEA. ALSO HAS PAIN ALL ACROSS LOWER ABDOMEN. ADDITIONALLY, HAS BEEN HAVING COUGHING AND CONGESTION. FOR THE LAST FEW DAYS NO FEVER/SWEATS/ CHILLS NO PALPITATIONS, NO DIZZINESS, NO SYNCOPE NO SWELLING IN LEGS/FEET OR PAIN IN CALVES PT HAS NOT TAKEN ANY ASPIRIN OR NTG PT HAS HISTORY OF UT WITH STENTS-8 [address] A[address] FOLLOWS WITH [address]. JACKSON PT IS DIABETIC, WITH CHRONIC BILATERAL LEG PAIN / ? NEUROPATHY ? PRIOR HISTORY OF COLON CANCER--S/P SURGERY ONLY. PT SMOKES CIGARS AND PIPE HE ALSO DRINKS "A COUPLE" OF BEERS EVERY DAY HE ALSO SMOKES MARIJUANA DAILY. PT HAS HAD 1 PFIZER [employer] VACCINE--OVER A YEAR AGO. PCP: FLORENCE WETZEL WITH [facility] SENIOR RADIATION PROTECTION TECHNICIAN: DR. JACKSON Allergies and Home Medications Allergies Coded Allergies: No Known Drug Allergies (Unverified , 01/22/11) Patient Home Medication List Home Medication List Reviewed: Yes Amlodipine Besylate (Amlodipine Besylate) 10 Mg Tablet, 10 MG PO DAILY, (Reported) Entered as Reported by: LUIS URBINA on 10/20/21 0841 Last Action: Reviewed Budesonide/Formoterol Fumarate (Symbicort 160-4.5 Mcg Inhaler) 10.2 Gm Hfa.aer.ad, 2 PUFF INH BID, (Reported) Entered as Reported by: JESSE WHEELER on 06/04/17 0742 Last Action: Reviewed Ferrous Sulfate (Iron) 325 Mg (65 Mg Iron) Tablet, 325 MG PO DAILY, (Reported) Entered as Reported by: STONEY WINTERS on 06/12/22 1228 Last Action: Reviewed Metformin HCl (Metformin HCl) 500 Mg Tablet, 500 MG PO BID, (Reported) Entered as Reported by: LUIS URBINA on 10/20/21 0841 Last Action: Reviewed Pantoprazole Sodium (Pantoprazole Sodium) 40 Mg Tablet.dr, 40 MG PO DAILY Prescribed by: SHERRI RIVERA on 06/12/22 1235 Ropinirole HCl (Ropinirole HCl) 3 Mg Tablet, 3-6 MG PO HS, (Reported) Entered as Reported by: STONEY WINTERS on 06/12/22 1228 Last Action: Reviewed Sitagliptin Phosphate (Januvia) 100 Mg Tablet, 100 MG PO DAILY, (Reported) Entered as Reported by: LUIS URBINA on 10/20/21 0841 Last Action: Reviewed Discontinued Medications Enalapril Maleate (Enalapril Maleate) 5 Mg Tablet, 5 MG PO BID, (Reported) Discontinued Reason: No Longer Taking Entered as Reported by: DAVIDSON PORTER on 09/01/15 1423 Last Action: Discontinued Omeprazole (Omeprazole) 40 Mg Capsule.dr, 40 MG PO DAILY, (Reported) Discontinued Reason: No Longer Taking Entered as Reported by: STONEY WINTERS on 06/12/228 Last Action: Discontinued Pantoprazole Sodium (Pantoprazole Sodium) 40 Mg Tablet.dr, 40 MG PO DAILY, (Reported) Discontinued Reason: No Longer Taking Entered as Reported by: EVELINA BRYANT on 06/03/171905 Last Action: Discontinued Ropinirole HCl (Ropinirole HCl) 2 Mg Tablet, 4 MG PO HS, (Reported) Discontinued Reason: Duplicate Order Entered as Reported by: EVELINA BRYANT on 06/03/171905 Last Action: Discontinued [Iron] , PO DAILY Discontinued Reason: Duplicate Order Prescribed by: ALLEN MALDONADO on 06/11/22 1009 Last Action: Discontinued Review of Systems Review of Systems Constitutional: no symptoms reported; No chills, No diaphoresis, No dizziness, No fever EENTM: See HPI, Nose Congestion Respiratory: See HPI, Cough, Orthopnea, Shortness of Air, SOA With Exertion, SOA at Rest Cardiovascular: See HPI, Chest Pain; Denies Edema, Denies Lightheadedness, Denies Palpitations, Denies Syncope Gastrointestinal: See HPI, Abdominal Pain; Denies Constipated, Denies Diarrhea; Nausea; Denies Vomiting Genitourinary: No Symptoms Reported Musculoskeletal: see HPI, back pain Skin: no symptoms reported Psychiatric/Neurological: No Symptoms Reported Endocrine: No Symptoms Reported Hematologic/Lymphatic: No Symptoms Reported Past Piffulq-Ojislt-Vqgtxz Hx Patient Social History Tobacco Use?: Yes Tobacco type used: Cigars, Pipe Smoking Status: Current Everyday Smoker Substance use?: Yes Substance type: Marijuana Substance frequency: Daily Alcohol Use?: Yes Alcohol type: Beer Alcohol Frequency: Daily Immunizations Up To Date Tetanus Booster (TDap): Unknown First/Initial COVID19 Vaccinat: MAR, 2021 Second COVID19 Vaccination [place]: MAR, 2021 Third COVID19 Vaccination Date: MAR, 2021 COVID19 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: [employer] Injections Seasonal Allergies Seasonal Allergies: No Past Medical History Surgeries: Yes Bowel Surgery, Cardiac, Coronary Stent Respiratory: Yes COPD Currently Using CPAP: No Cardiac: Yes (STENT) Coronary Artery Disease, Heart Attack Neurological: No Neuropathy (?) Reproductive Disorders: No Genitourinary: No Gastrointestinal: Yes (COLON CANCER) Chronic Constipation Musculoskeletal: Yes (CHRONIC LEG PAIN ) Endocrine: Yes Diabetes, Non-Insulin dep HEENT: No Cancer: Yes Colon Did You Recieve Any Treatments: Yes What Type of Treatment Did You: Surgical Intervention Psychosocial: No Integumentary: No Blood Disorders: No Adverse Reaction/Blood Tranf: No Family Medical History Heart Disease, Hypertension Physical Exam Vital Signs Vital Signs - First Documented 06/11/22 01:53 Temp 36.2 Pulse 81 Resp 22 B/P (MAP) 148/86 (106) Pulse Ox 98 O2 Delivery Nasal Cannula O2 Flow Rate 2.00 Capillary Refill : Less Than 3 Seconds Height, Weight, BMI Height: 5'6.00" Weight: 176lbs. 0.0oz. [id number]; 32.09 BMI Method:Stated General Appearance: No Apparent Distress, WD/WN, Other (STRONG ODOR OF TOBACCO AND MARIJUANA. UNKEMPT) Neck: Normal Inspection Respiratory: Chest Non Tender, Normal Breath Sounds, No Accessory Muscle Use, No Respiratory Distress Cardiovascular: Regular Rate, Rhythm, No Murmur Gastrointestinal: Non Tender, Soft Extremity: Normal Inspection, No Pedal Edema Neurologic/Psychiatric: Alert, Oriented x3, No Motor/Sensory Deficits, Normal Mood/Affect, prosthetics lab technician II-XII Norm as Tested Skin: Normal Color, Warm/Dry Progress/Results/Core Measures Results/Orders Lab Results Laboratory Tests Test 06/11/22 02:00 06/11/22 02:23 06/11/22 05:10 Range/Units White Blood Count 7.7 4.3-11.0 10^3/uL Red Blood Count 4.73 4.30-5.52 10^6/uL Hemoglobin 15.0 13.3-17.7 g/dL Hematocrit 45 40-54 % Mean Corpuscular Volume 96 80-99 fL Mean Corpuscular Hemoglobin 32 25-34 pg Mean Corpuscular Hemoglobin Concent 33 32-36 g/dL Red Cell Distribution Width 12.6 10.0-14.5 % Platelet Count 268 130-400 10^3/uL Mean Platelet Volume 10.9 9.0-12.2 fL Immature Granulocyte % (Auto) 0 % Neutrophils (%) (Auto) 55 42-75 % Lymphocytes (%) (Auto) 24 12-44 % Monocytes (%) (Auto) 11 0-12 % Eosinophils (%) (Auto) 7 0-10 % Basophils (%) (Auto) 2 0-10 % Neutrophils # (Auto) 4.2 1.8-7.8 10^3/uL Lymphocytes # (Auto) 1.8 1.0-4.0 10^3/uL Monocytes # (Auto) 0.9 0.0-1.0 10^3/uL Eosinophils # (Auto) 0.5 H 0.0-0.3 10^3/uL Basophils # (Auto) 0.2 H 0.0-0.1 10^3/uL Immature Granulocyte # (Auto) 0.0 0.0-0.1 10^3/uL Prothrombin Time 13.1 12.2-14.7 SEC INR Comment 0.9 0.8-1.4 Activated Partial Thromboplast Time 30 24-35 SEC D-Dimer 0.46 0.00-0.49 UG/ML Sodium Level 142 135-145 MMOL/L Potassium Level 3.8 3.6-5.0 MMOL/L Chloride Level 104 98-107 MMOL/L Carbon Dioxide Level 27 21-32 MMOL/L Anion Gap 11 5-14 MMOL/L Blood Urea Nitrogen 8 7-18 MG/DL Creatinine 0.81 0.60-1.30 MG/DL Estimat Glomerular Filtration Rate 97 BUN/Creatinine Ratio 10 Glucose Level 131 H 70-105 MG/DL Calcium Level 8.8 8.5-10.1 MG/DL Corrected Calcium 9.0 8.5-10.1 MG/DL Magnesium Level 2.1 1.6-2.4 MG/DL Total Bilirubin 0.4 0.1-1.0 MG/DL Aspartate Amino Transf (AST/SGOT) 53 H 5-34 U/L Alanine Aminotransferase (ALT/SGPT) 66 H 0-55 U/L Alkaline Phosphatase 141 H 40-136 U/L Total Creatine Kinase 83 30-200 U/L Creatine Kinase MB 1.7 <6.6 NG/ML Myoglobin 34.6 10.0-92.0 NG/ML Troponin I < 0.028 < 0.028 <0.028 NG/ML B-Type Natriuretic Peptide 13.1 <100.0 PG/ML Total Protein 8.5 H 6.4-8.2 GM/DL Albumin 3.8 3.2-4.5 GM/DL Amylase Level 32 25-125 U/L Lipase 34 8-78 U/L Serum Alcohol < 10 <10 MG/DL Influenza Type A (RT-PCR) Not Detected Not Detecte Influenza Type B (RT-PCR) Not Detected Not Detecte SARS-CoV-2 RNA (RT-PCR) Not Detected Not Detecte Urine Color YELLOW Urine Clarity CLEAR Urine pH 5.5 5-9 Urine Specific [place] >=1.030 1.016-1.022 Urine Protein TRACE H NEGATIVE Urine Glucose (UA) NEGATIVE NEGATIVE Urine Ketones TRACE H NEGATIVE Urine Nitrite NEGATIVE NEGATIVE Urine Bilirubin NEGATIVE NEGATIVE Urine Urobilinogen 1.0 < = 1.0 MG/DL Urine Leukocyte Esterase NEGATIVE NEGATIVE Urine RBC (Auto) NEGATIVE NEGATIVE Urine RBC NONE /HPF Urine WBC 0-2 /HPF Urine Crystals NONE /LPF Urine Bacteria FEW H /HPF Urine Casts NONE /LPF Urine Mucus LARGE H /LPF Urine Culture Indicated YES Urine Opiates Screen NEGATIVE NEGATIVE Urine Oxycodone Screen NEGATIVE NEGATIVE Urine Methadone Screen NEGATIVE NEGATIVE Urine Propoxyphene Screen NEGATIVE NEGATIVE Urine Barbiturates Screen NEGATIVE NEGATIVE Ur Tricyclic Antidepressants Screen NEGATIVE NEGATIVE Urine Phencyclidine Screen NEGATIVE NEGATIVE Urine Amphetamines Screen NEGATIVE NEGATIVE Urine Methamphetamines Screen NEGATIVE NEGATIVE Urine Benzodiazepines Screen NEGATIVE NEGATIVE Urine Cocaine Screen NEGATIVE NEGATIVE Urine Cannabinoids Screen POSITIVE H NEGATIVE Micro Results Microbiology 06/11/22 Urine Culture - Final, Complete Gram Pos Mixed Bacterial Erika See Comments My Orders Orders - EMELI,NEIL K DO Cbc With Automated Diff (06/11/22 01:47) Magnesium (06/11/22 01:47) Chest 1 View, Ap/Pa Only (06/11/22 01:47) Ekg Tracing (06/11/22 01:47) Comprehensive Metabolic Panel (06/11/22 01:47) Myoglobin Serum (06/11/22 01:47) Protime With Inr (06/11/22 01:47) Partial Thromboplastin Time (06/11/22 01:47) O2 (06/11/22 01:47) Monitor-Rhythm Ecg Trace Only (06/11/22 01:47) Ed Iv/Invasive Line Start (06/11/22 01:47) Creatine Kinase (06/11/22 01:47) Creatine Kinase Mb (06/11/22:47) Lipase (06/11/22 01:47) Amylase (06/11/22 01:47) Bnp [place] (06/11/22 01:47) Fibrin Degradation Products (06/11/22 01:47) Troponin I [place] (06/11/22 01:47) Nitroglycerin 0.4 Mg Btl 25's (Nitrostat (06/11/22 02:00) Aspirin Chewable Tablet (Baby Aspirin Ch (06/11/22 02:00) Covid 19 Inhouse Test (06/11/22 01:57) Influenza A And B By Pcr (06/11/22 01:57) Isolation Central Supply Req (06/11/22 01:57) Alcohol (06/11/22 01:57) Drug Screen Stat (Urine) (06/11/22 01:57) Ua Culture If Indicated (06/11/22 01:57) Urine Culture (06/11/22 02:23) Troponin I [place] (06/11/22 05:00) Ekg Tracing (06/11/22 05:00) Medications Given in ED Vital Signs/I&O 06/11/22 06/11/22 01:53 01:55 Temp 36.2 Pulse 81 Resp 22 B/P (MAP) 148/86 (106) Pulse Ox 98 O2 Delivery Nasal Cannula Nasal Cannula O2 Flow Rate 2.00 2.00 Blood Pressure Mean: 106 Progress Progress Note : Progress Note GIVEN: -ASPIRIN -NTG X 1--COMPLETE RELIEF OF PAIN UNEVENTFUL ER STAY REVIEWED PRIOR CHARTS, INCLUDING H&P'S, CONSULTS, PROCEDURES AND DISCHARGE SUMMARIES. Initial ECG Impression Date: Jun 11, 2022 Initial ECG Impression Time: 01:54 Initial ECG Rate: 85 Initial ECG Rhythm: Normal Sinus (WITH PVC) Initial ECG Comparisson: Unchanged EKG : EKG Time: 05:13 Rate: 75 Rhythm: Normal Sinus (MINUS ARRHYTHMIA/PAC'S. ) ECG Comparisson: Unchanged Diagnostic Imaging Comments CXR--NO ACUTE PROCESS PENDING RADIOLOGIST REVIEW Reviewed: Reviewed by Me Departure Communication (Admissions) 0630--SPOKE WITH DR. ORTIZ, ADVISES TO ADMIT TO HOSPITALIST AND HE WILL SEE PT IN CONSULT 0704--SPOKE WITH DR. MIGUEL, HOSPITALIST, ACCEPTS PT FOR ADMIT. Impression Primary Impression: Chest pain Additional Impression: Hx of heart artery stent Disposition: ADMITTED INPATIENT Condition: Improved Admissions Decision to Admit Reason: Admit from ER (General) Decision to Admit/Date: Jun 11, 2022 Time/Decision to Admit Time: 06:30 Departure-Patient Inst. Referrals: NO,LOCAL PHYSICIAN (PCP) Primary Care Physician VIPIN WETZEL (Family) Primary Care Physician Scripts Pantoprazole Sodium (Pantoprazole Sodium) 40 Mg Tablet. 40 MG PO DAILY for 30 Days, #30 TAB Prov: SHERRI RIVERA MD 06/12/22 NEIL SAINZ DO Jun 11, 2022 05:15
--- NOTE | 2022-06-11 07:30 | Diagnostic Imaging Report ---
INDICATION: Chest pain COMPARISON: 06/14/2017 FINDINGS: Single frontal view of the chest demonstrates normal heart size and pulmonary vascularity. The lungs are well aerated and clear. No large pleural effusion or pneumothorax is seen. The visualized osseous structures show no acute abnormalities. IMPRESSION: 1. No acute cardiopulmonary process. Dictated by: Dictated on workstation # [id number]
[2022-06-11 08:20] VITALS: BP 136/79
[2022-06-11] MEDS ORDERED: morphine INJ 4 MG/ML 1 ML (VIAL/SYRINGE) IV PRN (09:00)
[2022-06-11] MEDS ORDERED: ONDANSETRON 4 MG/2 ML (SDV) Z0FRAN IVP PRN (09:00)
[2022-06-11] MEDS ORDERED: CATHETER FLUSH 10 ML SYR IVP PRN (09:00)
[2022-06-11] MEDS: ASPIRIN E.C. 81 MG (ECOTRIN) TAB PO SCH (10:02)
[2022-06-11] MEDS ORDERED: IRON PO (10:09)
[2022-06-11] MEDS ORDERED: REGADENOSON 0.4 MG/5 ML SYR (LEXISCAN) IV ONE (10:30)
--- NOTE | 2022-06-11 10:59 | Consultation-Cardiology ---
HPI-Cardiology Cardiology Consultation: Date of Consultation 06/11/22 Time Seen by a Provider: 09:50 Date of Admission Attending Physician Shefali James Admitting Physician Admitting Physician: Laura Ramos MD Attending Physician: Laura Ramos MD Consulting Physician NASREEN ORTIZ MD, MA, FACP, FACC, FSCAI, CCDS Primary pumping station supervisor: Dr Briggs Physician requesting consult: Dr Ramos HPI: Chief Complaint: Chest discomfort 66 yo man with a h/o CAD who reports intermittent chest discomfort for 1-2 months: L parasternal and mid sternal, mild, feeling of an ache, lasting up to an hour or two, w/o particular aggravating or relieving factors, w/o radiation, w/o associated symptoms, occurring a few times a week, somewhat worse last night that brought him to the ER. Chronic, slowly progressive exertional shortness of breath. Chronic smoker of pipes, continues. No swelling. No syncope. No palp. No fever or chills. No recent wgt gain / loss. Review of Systems-Cardiology Review of Systems Constitutional: As described under HPI Eyes: No vision change Ears/Nose/Throat: No ear discharge, No nasal drainage, No recent hearing loss Respiratory: As described under HPI Cardiovascular: As described under HPI Gastrointestinal: No diarrhea, No nausea, No vomiting Genitourinary: No dysuria, No hematuria, No urine frequency changes Musculoskeletal: back pain (chronic) Skin: No rash, No ulcerations Psychiatric/Neurological: No seizure, No focal weakness, No syncope Hematologic: No bleeding abnormalities [id number] Hx Patient Social History Smoking Status: Current Everyday Smoker 2nd Hand Smoke Exposure: Yes Have you traveled recently?: No Alcohol Use?: Yes Substance type: Marijuana Pt feels they are or have been: No Tobacco type used: Cigars Immunizations Up To Date Tetanus Booster (TDap): Unknown Date of Influenza Vaccine: Feb 09, 2022 Past Medical History PMH As described under Assessment. Family Medical History Family Medical History: does not report fam h/o early CAD or SCD Allergies and Home Medications Allergies Coded Allergies: No Known Drug Allergies (Unverified , 01/22/11) Patient Home Medication List Home Medication List Reviewed: Yes Amlodipine Besylate (Amlodipine Besylate) 10 Mg Tablet, 10 MG PO DAILY, (Reported) Entered as Reported by: LUIS URBINA on 10/20/21840 Last Action: Reviewed Budesonide/Formoterol Fumarate (Symbicort 160-4.5 Mcg Inhaler) 10.2 Gm Hfa.aer.ad, 2 PUFF INH BID, (Reported) Entered as Reported by: JESSE WHEELER on 06/04/17 0742 Last Action: Reviewed Metformin HCl (Metformin HCl) 500 Mg Tablet, 500 MG PO BID, (Reported) Entered as Reported by: LUIS URBINA on 10/20/21840 Last Action: Reviewed Pantoprazole Sodium (Pantoprazole Sodium) 40 Mg Tablet.dr, 40 MG PO DAILY, (Reported) Entered as Reported by: EVELINA BRYANT on 06/03/171905 Last Action: Reviewed Ropinirole HCl (Ropinirole HCl) 2 Mg Tablet, 4 MG PO HS, (Reported) Entered as Reported by: EVELINA BRYANT on 06/03/171905 Last Action: Reviewed Sitagliptin Phosphate (Januvia) 100 Mg Tablet, 100 MG PO DAILY, (Reported) Entered as Reported by: LUIS URBINA on 10/20/21840 Last Action: Reviewed [Iron] , PO DAILY Prescribed by: ALLEN MALDONADO on 06/11/22 1009 Last Action: New Order Discontinued Medications Enalapril Maleate (Enalapril Maleate) 5 Mg Tablet, 5 MG PO BID, (Reported) Discontinued Reason: No Longer Taking Entered as Reported by: DAVIDSON PORTER on 09/01/15 1423 Last Action: Discontinued Physical Exam-Cardiology Physical Exam Vital Signs/I&O 06/11/22 06/11/22 06/11/22 06/11/22 01:53 01:55 07:47 08:20 Temp 36.2 36.2 36.7 Pulse 81 80 74 Resp B/P (MAP) 148/86 (106) 153/89 136/79 (98) Pulse Ox 98 96 94 O2 Delivery Nasal Cannula Nasal Cannula Room Air Room Air O2 Flow Rate 2.00 2.00 06/11/22 06/11/22 08:44 09:13 Pulse 82 Pulse Ox 95 O2 Delivery Room Air Capillary Refill : Less Than 3 Seconds Constitutional: AAO x 3, well-developed, well-nourished HEENT: EOMI, hearing is well preserved; No xanthelasmas are seen Neck: carotid pulses are 2 + bilaterally, with good upstrokes Respiratory: No accessory muscle use; chest expansion is symmetric, other (fair air entry, prolonged exp) Cardiovascular: regular rate-rhythm, S1 and S2, systolic murmur (soft DG at card base) Gastrointestinal: No tender; soft; No guarding, No rebound; audible bowel sounds Extremities: No clubbing, No cyanosis, No significant edema Neurologic/Psychiatric: alert, oriented x 3, other (moves all limbs equally) Skin: warm/dry; No cyanosis, No rash on exposed areas, No ulcerations on exposed areas Data Review Labs Laboratory Tests 06/11/22 02:00: White Blood Count 7.7, Red Blood Count 4.73, Hemoglobin 15.0, Hematocrit 45, Mean Corpuscular Volume 96, Mean Corpuscular Hemoglobin 32, Mean Corpuscular Hemoglobin Concent 33, Red Cell Distribution Width 12.6, Platelet Count 268, Mean Platelet Volume 10.9, Immature Granulocyte % (Auto) 0, Neutrophils (%) (Auto) 55, Lymphocytes (%) (Auto) 24, Monocytes (%) (Auto) 11, Eosinophils (%) (Auto) 7, Basophils (%) (Auto) 2, Neutrophils # (Auto) 4.2, Lymphocytes # (Auto) 1.8, Monocytes # (Auto) 0.9, Eosinophils # (Auto) 0.5H, Basophils # (Auto) 0.2H , Immature Granulocyte # (Auto) 0.0, Prothrombin Time 13.1, INR Comment 0.9, Activated Partial Thromboplast Time 30, D-Dimer 0.46, Sodium Level 142, Potassium Level 3.8, Chloride Level 104, Carbon Dioxide Level 27, Anion Gap 11, Blood Urea Nitrogen 8, Creatinine 0.81, Estimat Glomerular Filtration Rate 97, BUN/Creatinine Ratio 10, Glucose Level 131H, Calcium Level 8.8, Corrected Calcium 9.0, Magnesium Level 2.1, Total Bilirubin 0.4, Aspartate Amino Transf (AST/SGOT) 53H, Alanine Aminotransferase (ALT/SGPT) 66H, Alkaline Phosphatase 141H, Total Creatine Kinase 83, Creatine Kinase MB 1.7, Myoglobin 34.6, Troponin I < 0.028, B-Type Natriuretic Peptide 13.1, Total Protein 8.5H, Albumin 3.8, Amylase Level 32, Lipase 34, Serum Alcohol < 10, Influenza Type A (RT-PCR) Not Detected, Influenza Type B (RT-PCR) Not Detected, SARS-CoV-2 RNA (RT-PCR) Not Detected 06/11/22 02:23: Urine Color YELLOW, Urine Clarity CLEAR, Urine pH 5.5, Urine Specific [place] >=1.030, Urine Protein TRACEH, Urine Glucose (UA) NEGATIVE, Urine Ketones TRACEH , Urine Nitrite NEGATIVE, Urine Bilirubin NEGATIVE, Urine Urobilinogen 1.0, Urine Leukocyte Esterase NEGATIVE, Urine RBC (Auto) NEGATIVE, Urine RBC NONE, Urine WBC 0-2, Urine Crystals NONE, Urine Bacteria FEWH, Urine Casts NONE, Urine Mucus LARGEH, Urine Culture Indicated YES, Urine Opiates Screen NEGATIVE, Urine Oxycodone Screen NEGATIVE, Urine Methadone Screen NEGATIVE, Urine Propoxyphene Screen NEGATIVE, Urine Barbiturates Screen NEGATIVE, Ur Tricyclic Ant idepressants Screen NEGATIVE, Urine Phencyclidine Screen NEGATIVE, Urine Amphetamines Screen NEGATIVE, Urine Methamphetamines Screen NEGATIVE, Urine Benzodiazepines Screen NEGATIVE, Urine Cocaine Screen NEGATIVE, Urine Cannabinoids Screen POSITIVEH 06/11/22 05:10: Troponin I < 0.028 Laboratory Tests 06/11/22 02:00 A/P-Cardiology Assessment/Admission Diagnosis Non-specific chest pain - no evidence of ac [place] Coronary artery disease, - History of PTCA and stent placement May 05, 2012 using 3.5 x 22 mm Integrity stent to the right coronary artery, - Cardiac catheterization was done in August 2015 showing 70 percent in-stent restenosis in the midright coronary artery successful balloon angioplasty using 3.520 mm and 3.530 mm Emerge balloon with excellent results. Has 70 percent stenosis in the distal circumflex artery that is smaller artery 1.5-2 mm in diameter - Most recent stress test done July 2017 within normal limits History of congestive heart failure and pericarditis - estimated ejection fraction 55-60%, per 2-D echocardiogram done August 2017 - Echocardiogram was done in May 2019 showing normal LV size with EF 55-65 percent, mild to moderate TR, PA pressure 30 mmHg. History of pericarditis, improved, continue to monitor. Hepatitis C/ Elevated liver enzymes, better at this time, followed by Dr. Albert Cervantes of heavy alcohol and tobacco use - advised to quit Hyperlipidemia - h/o statin treatment, but currently not on it Mild bilateral carotid stenosis - followed by Dr Ruff, ultrasound was done in in January 2018, evaluate carotid ultrasound Colon cancer, diagnosed April 2017, status post colon resection - followed by [facility] Discussion and Recomendations * Risk factor mod reviewed * Advised to quit smoking immediately and completely * MPI planned for coronary risk stratification * Treat with ASA, beta-crow, statin * Monitor labs * I discussed his CV issues with him and his fam and answered questions NASREEN ORTIZ MD FACP [facility] CCDS Jun 11, 2022 10:59
--- NOTE | 2022-06-11 11:09 | History & Physical-Hospitalist ---
History of Present Illness HPI/Chief Complaint Patient is a 66-year-old male with past medical history of coronary artery disease status post stenting who presented to the emergency department due to 3 days of chest pain. He states it started in the middle of the chest and then went to his back and left arm. It felt similar to when he had previous stenting done but only stronger. Just prior to admission for about 2 hours it worsened significantly prompting him to seek evaluation in the emergency department. He was given aspirin and nitro in the emergency department and this resolved his symptoms. Troponin was checked and was negative but given history and symptomatology he was admitted overnight for evaluation. Date Seen 06/11/22 Time Seen by a Provider: 08:45 Attending Physician Shefali James PCP Admitting Physician: Jacque Miguel MD Attending Physician: Jacque Miguel MD Referring Physician Date of Admission Jun 11, 2022 at 6:30 am Home Medications & Allergies Home Medications Reviewed patient Home Medication Reconciliation performed by pharmacy medication reconciliations wastewater technician and/or nursing. Patients Allergies have been reviewed. Allergies Allergies Coded Allergies No Known Drug Allergies (Unverified01/22/11) Past [id number]-Swklht Hx Patient Social History Marrital Status: Tobacco Use?: Yes Tobacco type used: Cigars Smoking Status: Current Everyday Smoker Smokeless Tobacco Frequency: Never a User Use of E-Cig and/or Vaping dev: No Substance use?: Yes Substance type: Marijuana Substance frequency: Couple times a week Alcohol Use?: Yes Alcohol type: Beer Additional alcohol type: BEER Alcohol Frequency: Couple times a week Pt feels they are or have been: No Immunizations Up To Date Date of Influenza Vaccine: Feb 09, 2022 First/Initial COVID19 Vaccinat: MAR, 2021 Second COVID19 Vaccination [place]: MAR, 2021 Tetanus Booster (TDap): Unknown Seasonal Allergies Seasonal Allergies: No Current Status Advance Directives: No Communicates: Verbally Primary Language: Montenegrin Preferred Spoken Language: Montenegrin Is interpretation needed?: No Implanted or Applied Medical D: None Past Medical History Surgeries: Bowel Surgery, Coronary Stent COPD Currently Using CPAP: No Heart Attack Chronic Constipation Diabetes, Non-Insulin dep Colon Did You Recieve Any Treatments: Yes What Type of Treatment Did You: Surgical Intervention Blood Disorders: No Adverse Reaction/Blood Tranf: No Family Medical History Heart Disease, Hypertension Review of Systems Constitutional: no symptoms reported EENTM: no symptoms reported Respiratory: no symptoms reported Cardiovascular: see HPI, chest pain Gastrointestinal: no symptoms reported Genitourinary: no symptoms reported Musculoskeletal: no symptoms reported Skin: no symptoms reported Psychiatric/Neurological: No Symptoms Reported Physical Exam Physical Exam Vital Signs Vital Signs - First Documented 06/11/22 01:53 Temp 36.2 Pulse 81 Resp 22 B/P (MAP) 148/86 (106) Pulse Ox 98 O2 Delivery Nasal Cannula O2 Flow Rate 2.00 Capillary Refill : Less Than 3 Seconds Height, Weight, BMI Height: 5'6.00" Weight: 176lbs. 0.0oz. 79.418798tm; 29.05 BMI Method:Stated General Appearance: No Apparent Distress, WD/WN HEENT: PERRL/EOMI, Moist Mucous Membranes; No Scleral Icterus (L), No Scleral Icterus (R) Neck: Normal Inspection, Supple Respiratory: Lungs Clear, No Accessory Muscle Use, No Respiratory Distress Cardiovascular: Regular Rate, Rhythm, No JVD, No Murmur Gastrointestinal: Normal Bowel Sounds, Non Tender, Soft, Hepatomegaly Extremity: Normal Capillary Refill, No Calf Tenderness, No Pedal Edema Neurologic/Psychiatric: Alert, Oriented x3, Normal Mood/Affect Skin: Normal Color, Warm/Dry Results Results/Procedures Labs Laboratory Tests 06/11/22 02:00 Patient resulted labs reviewed. Imaging: Reviewed Imaging Report Imaging [facility], [place] NAME: FR[facility] REC#: [id number] PT STATUS: REG ER : 1955 PHYSICIAN: NEIL ASINZ DO ADMIT DATE: 06/11/22/ER Draft Date of Exam:06/11/22 CHEST 1 VIEW, AP/PA ONLY INDICATION: Chest pain COMPARISON: 06/14/2017 FINDINGS: Single frontal view of the chest demonstrates normal heart size and pulmonary vascularity. The lungs are well aerated and clear. No large pleural effusion or pneumothorax is seen. The visualized osseous structures show no acute abnormalities. IMPRESSION: 1. No acute cardiopulmonary process. Dictated on workstation # [id number] Dict: 06/11/22 0729 Trans: 06/11/2230 CV [id number] Interpreted by: ROGELIO DENT MD Electronically signed by: Assessment/Plan Admission Diagnosis Chest pain Admission Status: Observation Assessment and Plan Chest pain CAD Cardiology consulted, appreciate recs Troponin negative x2 Monitor on telemetry Stress in AM Continue ASA and metoprolol Nitro prn pain COPD On room air MAT protocol Continue home inhalers NIDDMII Hold metformin for possible SSI Diagnosis/Problems Diagnosis/Problems (1) Chest pain Status: Acute (2) CAD (coronary artery disease) Status: Acute (3) Hepatitis C Status: Acute JACQUE MIGUEL MD Jun 11, 2022 11:09
[2022-06-11] MEDS ORDERED: meTOproloL SUCCINATE 50 MG (TOPROL XL) TAB PO NR (11:15)
[2022-06-11 11:17] VITALS: BP 132/77
[2022-06-11] MEDS: CATHETER FLUSH 10 ML SYR IVP SCH ×2 (14:22→22:52)
[2022-06-11 16:00] VITALS: BP 128/81
[2022-06-11] MEDS: inSUlin ASPART (NovoLOG) 1 UNIT/0.01 ML (CHARGE PER UNIT) SC SCH ×2 (16:09→20:52)
[2022-06-11 16:17] VITALS: BP 132/77
[2022-06-11] MEDS ORDERED: RT-ALBUTEROL/IPRATROPIUM 3 ML (DUONEB) VIAL INH PRN (16:45)
[2022-06-11 19:48] VITALS: BP 132/73
[2022-06-11] MEDS: RT--FLUTICASONE/SALMETEROL 232-14 (AIRDUO RespiCLICK) IH SCH (19:48)
[2022-06-11] MEDS ORDERED: NON-FORMULARY MEDICATION 1 EA EA (Budesonide/Formoterol Fumarate (Symbicort 160-4.5 Mcg In INH SCH (21:00)
[2022-06-11] MEDS ORDERED: NON-FORMULARY MEDICATION 1 EA EA (Ropinirole HCl 4 MG) PO SCH (21:00)
[2022-06-11] MEDS ORDERED: rOPINIRole 1 MG (REQUIP) TABLET PO SCH (21:00)
[2022-06-11 23:41] VITALS: BP 131/74
[2022-06-12 04:24] VITALS: BP 112/72
[2022-06-12 05:09] LABS: HEMATOCRIT 43 % (40-54); HEMOGLOBIN 14.2 g/dL (13.3-17.7); MEAN CORPUSCULAR HEMOGLOBIN 32 pg (25-34); MEAN CORPUSCULAR HGB CONC 33 g/dL (32-36); MEAN CORPUSCULAR VOLUME 98 fL (80-99); PLATELET COUNT 246 10^3/uL (130-400); WHITE BLOOD COUNT 7.2 10^3/uL (4.3-11.0)
[2022-06-12 05:10] LABS: BASOPHILS # (AUTO) 0.1 10^3/uL (0.0-0.1); BASOPHILS % (AUTO) 2 % (0-10); EOSINOPHILS # (AUTO) 0.7 10^3/uL (0.0-0.3); EOSINOPHILS % (AUTO) 9 % (0-10); LYMPHOCYTES # (AUTO) 1.9 10^3/uL (1.0-4.0); LYMPHOCYTES % (AUTO) 26 % (12-44); MONOCYTES # (AUTO) 0.7 10^3/uL (0.0-1.0); MONOCYTES % (AUTO) 10 % (0-12); NEUTROPHILS # (AUTO) 3.7 10^3/uL (1.8-7.8); NEUTROPHILS % (AUTO) 52 % (42-75)
[2022-06-12 05:23] LABS: POTASSIUM 4.2 MMOL/L (3.6-5.0)
[2022-06-12 05:24] LABS: CALCIUM 8.7 MG/DL (8.5-10.1)
[2022-06-12 05:29] LABS: CREATININE SERUM 0.8 MG/DL (0.60-1.30)
[2022-06-12] MEDS: CATHETER FLUSH 10 ML SYR IVP SCH (06:00)
[2022-06-12] MEDS: inSUlin ASPART (NovoLOG) 1 UNIT/0.01 ML (CHARGE PER UNIT) SC SCH ×2 (06:00→12:00)
[2022-06-12] MEDS: ASPIRIN E.C. 81 MG (ECOTRIN) TAB PO SCH (08:00)
[2022-06-12] MEDS ORDERED: CATHETER FLUSH 10 ML SYR IVP PRN (08:45)
[2022-06-12] MEDS ORDERED: PANTOPRAZOLE 40 MG (PROTONIX) TAB PO SCH (09:00)
[2022-06-12] MEDS ORDERED: meTOproloL SUCCINATE 50 MG (TOPROL XL) TAB PO SCH (09:00)
[2022-06-12] MEDS ORDERED: REGADENOSON 0.4 MG/5 ML SYR (LEXISCAN) IV ONE (09:29)
[2022-06-12 09:44] VITALS: BP 137/72
--- NOTE | 2022-06-12 10:42 | Cardiology Progress Note ---
Subjective Date Seen by Provider: Jun 12, 2022 Time Seen by Provider: 10:40 Subjective/Events-last exam Patient was seen at bedside, feeling better today, no further episodes of chest pain. Cardiac enzymes were negative Review of Systems General: No Chills, No Night Sweats, No Fatigue, No Malaise, No Appetite, No Other HEENT: No Head Aches, No Visual Changes, No Eye Pain, No Ear Pain, No Dysphasia, No Sinus Congestion, No Post Nasal Drip, No Sore Throat, No Other Pulmonary: No Dyspnea, No Cough, No Pleuritic Chest Pain, No Other Cardiovascular: No: Chest Pain, Palpitations, Orthopnea, Paroxysmal Noc. Dyspnea, Edema, Lt Headedness, Other Objective-Cardiology Exam Last Set of Vital Signs Vital Signs 06/11/22 06/12/22 06/12/22 06/12/22 06/12/22 16:17 04:24 07:37 07:58 09:44 Temp 36.2 Pulse 53 Resp 16 B/P (MAP) 137/72 (93) Pulse Ox 94 O2 Delivery Nasal Cannula O2 Flow Rate 1.50 FiO2 21 I&O Intake and Output 06/12/22 00:00 Intake Total 895 ml Output Total 470 ml Balance 425 ml Intake Oral 895 ml Output Urine Total 470 ml # Bowel Movements 2 Daily Weight Change Unsure General: Alert, Oriented X3, Cooperative HEENT: Atraumatic, PERRLA Neck: Supple, No JVD, No Thyromegaly Lungs: Clear to Auscultation, Normal Air Movement Heart: Regular Rate, Normal S1, Normal S2, No Murmurs Abdomen: Normal Bowel Sounds, Soft, No Tenderness, No Hepatosplenomegaly, No Masses Extremities: No Clubbing, No Cyanosis, No Edema, Normal Pulses, No Tenderness/Swelling Skin: No Rashes, No Breakdown, No Significant Lesion Neuro: Normal Gait, Normal Speech, Strength at 5/5 X4 Ext, Normal Tone, Sensation Intact Psych/Mental Status: Mental Status NL, Mood NL Results Lab Laboratory Tests 06/12/22 04:59 A/P-Cardiology Admission Diagnosis Chest pain Coronary artery disease Hypertension Hyperlipidemia Assessment/Plan Chest pain, nonspecific etiology, cardiac enzymes were negative Lexiscan stress test was done today showing no significant ischemia or infarction on SPECT images Okay for discharge and follow-up as an outpatient Coronary artery disease, History of PTCA and stent placement May 05, 2012 using 3.5 x 22 mm Integrity stent to the right coronary artery, Cardiac catheterization was done in August 2015 showing 70 percent in-stent restenosis in the midright coronary artery successful balloon angioplasty using 3.520 mm and 3.530 mm Emerge balloon with excellent results. Has 70 percent stenosis in the distal circumflex artery that is smaller artery 1.5-2 mm in diameter. Maintained on aspirin. Most recent stress test done July 2017 within normal limits. Continue to monitor. Planning to reevaluate stress test History of congestive heart failure, improved on the previous study. Asymptomatic. We will repeat 2D echo History of pericarditis, improved, continue to monitor. Hypertension-poorly controlled, patient reported that his blood pressure on the home monitoring is under good control. Continue to monitor Pulmonary hypertension, last echocardiogram was done in July 2017 showing pulmonary artery pressure of 35 mmHg. Continue to monitor Hepatitis C/ Elevated liver enzymes, better at this time, followed by Dr. Albert Cervantes of Alcoholism, educated on avoiding alcohol products. Hyperlipidemia, taking Lipitor at this time, last lipid profile was done in July 2019. Showing good control, I will reevaluate lipid profile, had mild elevation in liver enzymes Mild bilateral carotid stenosis, ultrasound was done in in July 2020. Continue to monitor Colon cancer, diagnosed April 2017, status post colon resection, followed by primary care physician MEAGAN JACKSON MD Jun 12, 2022 10:42
--- NOTE | 2022-06-12 11:14 | Cardiology Stress Test Report ---
Stress Test Report Date of Procedure/Referring: Date of Procedure: Jun 12, 2022 PCP Shefali James Admitting Physician Admitting Physician: Laura Ramos MD Attending Physician: Joselyn Salas MD Indications: cp Baseline Heart Rate: 53 Baseline Blood Pressure: Blood Pressure Systolic: 137 Blood Pressure Diastolic: 72 Baseline Vitals Vital Signs Date Time Temp Pulse Resp B/P (MAP) Pulse Ox O2 Delivery O2 Flow Rate FiO2 06/11/22 01:53 36.2 81 22 148/86 (106) 98 Nasal Cannula 2.00 06/11/22 16:17 21 Baseline EKG: Baseline EKG: NSR Summary After explaining the procedure to the patient, he signed a consent and then brought to the stress nuclear laboratory. Patient received 0.4 mg Lexiscan for stress test, ECG, heart rate and blood pressure were monitored continuously. Resting and stress dose of radio tracer were injected, imaging was acquired and reviewed in short axis, horizontal long axis and vertical long axis views. TID: 1.02 SSS: 2 SDS: 2 EF: 57 1. Patient tolerated Lexiscan well had mild chest pain with Lexiscan injection resolved spontaneously 2. Diaphragmatic attenuation with typical male pattern with no significant ischemia or infarction on SPECT images 3. Normal left ventricular size, ejection fraction 57% Copy Copies To 1: [facility]/MEAGAN BRYANT MD Jun 12, 2022 11:14
[2022-06-12] MEDS: RT--FLUTICASONE/SALMETEROL 232-14 (AIRDUO RespiCLICK) IH SCH (12:09)
[2022-06-12] MEDS ORDERED: FERR-84 PO (12:28)
[2022-06-12] MEDS ORDERED: OMEP40CA6 PO (12:28)
[2022-06-12] MEDS ORDERED: ROPI3TAB4 PO (12:28)
[2022-06-12] MEDS ORDERED: PANT40TA52 PO (12:35)
--- NOTE | 2022-06-12 17:47 | Discharge Summary ---
Discharge Summary Hospital Course Problems/Dx: (1) Chest pain Status: Acute (2) CAD (coronary artery disease) Status: Acute (3) GERD (gastroesophageal reflux disease) Status: Acute Hospital Course Date of Admission: Jun 11, 2022 at 06:30 Admission Diagnosis : Chest pain Family Physician/Provider: Shefali James Date of Discharge: 06/12/22 Discharge Diagnosis: Chest pain, GERD Hospital Course: Galdino Ceron is a 66 year old male [facility] patient with PMH CAD, GERD, who presented with chest pain. His troponin remained negative. Cardiology was consulted and assisted with his care. He underwent a stress test which was negative. He had been taking a PPI previously but stopped. He was restarted on a PPI as his symptoms were possibly due to acid reflux. His chest pain resolved. He was disch arged home in stable condition. He should follow up with his PCP, Shefali James, in about a week. Labs and Pending Lab Test: Laboratory Tests 06/11/22 20:47: Glucometer 159H 06/12/22 04:59: White Blood Count 7.2, Red Blood Count 4.42, Hemoglobin 14.2, Hematocrit 43, Mean Corpuscular Volume 98, Mean Corpuscular Hemoglobin 32, Mean Corpuscular H emoglobin Concent 33, Red Cell Distribution Width 12.7, Platelet Count 246, Mean Platelet Volume 11.0, Immature Granulocyte % (Auto) 0, Neutrophils (%) (Auto) 52, Lymphocytes (%) (Auto) 26, Monocytes (%) (Auto) 10, Eosinophils (%) (Auto) 9, Basophils (%) (Auto) 2, Neutrophils # (Auto) 3.7, Lymphocytes # (Auto) 1.9, Monocytes # (Auto) 0.7, Eosinophils # (Auto) 0.7H, Basophils # (Auto) 0.1, Immature Granulocyte # (Auto) 0.0, Sodium Level 139, Potassium Level 4.2, Chloride Level 105, Carbon Dioxide Level 26, Anion Gap 8, Blood Urea Nitrogen 14, Creatinine 0.80, Estimat Glomerular Filtration Rate 98, BUN/Creatinine Ratio 18, Glucose Level 110H, Calcium Level 8.7 06/12/22 11:06: Glucometer 128H Microbiology 06/11/22 Urine Culture - Final, Complete Gram Pos Mixed Bacterial Erika See Comments Home Meds Active Pantoprazole Sodium 40 Mg Tablet.dr 40 Mg PO DAILY 30 Days Reported Iron (Ferrous Sulfate) 325 Mg (65 Mg Iron) Tablet 325 Mg PO DAILY Ropinirole HCl 3 Mg Tablet 3-6 Mg PO HS TAKES 1 TO 2 (3MG) TABS Januvia (Sitagliptin Phosphate) 100 Mg Tablet 100 Mg PO DAILY Amlodipine Besylate 10 Mg Tablet 10 Mg PO DAILY Metformin HCl 500 Mg Tablet 500 Mg PO BID Symbicort 160-4.5 Mcg Inhaler (Budesonide/Formoterol Fumarate) 10.2 Gm Hfa.a er.ad 2 Puff INH BID Assessment/Pt Instructions See instructions Discharge Planning: <30 minutes discharge planning Discharge Instructions Discharge Diet: Low Sodium Diet Activity as Tolerated: Yes Consultations Cardiology Discharge Physical Examination Vital Signs Vital Signs Date Time Temp Pulse Resp B/P (MAP) Pulse Ox O2 Delivery O2 Flow Rate FiO2 06/12/22 13:40 06/12/22 12:09 93 Room Air 06/12/22 09:44 53 06/12/22 07:58 1.50 06/12/22 07:37 36.2 06/12/22 04:24 16 06/11/22 16:17 21 General Appearance: No Apparent Distress, WD/WN Respiratory: Lungs Clear, No Respiratory Distress Cardiovascular: Regular Rate, Rhythm, No Murmur Gastrointestinal: Normal Bowel Sounds, Soft Extremity: Normal Inspection, No Pedal Edema Skin: Normal Color, Warm/Dry Neurologic/Psychiatric: Alert, Normal Mood/Affect Allergies: Coded Allergies: No Known Drug Allergies (Unverified , 01/22/11) Copy Copies To 1: [facility] [place] Summary Date of Admission Jun 11, 2022 at 06:30 Date of Discharge Jun 12, 2022 at 13:50 Discharge Date: Jun 12, 2022 Discharge Time: 13:50 Admission Diagnosis Chest pain Consults/Procedures Consulations Cardiology Procedures Stress test Discharge Diagnosis (1) Chest pain Status: Acute (2) CAD (coronary artery disease) Status: Acute (3) GERD (gastroesophageal reflux disease) Status: Acute SHERRI RIVERA MD Jun 12, 2022 17:47
== END 2022-06-12 12:12 | disposition home or self-care (01) ==
LOC: EDUNIT# 01:38 → ER 01:41 → UNDOADMOB 06:30 → CSD 06:30 → UNDODISOB 06-12 12:12
PROVIDERS: ADMIT Family Medicine; ATTEND Internal Medicine
DX: R07.9 Chest pain, unspecified (principal); I25.10 Atherosclerotic heart disease of native coronary artery without angina pectoris; J44.9 Chronic obstructive pulmonary disease, unspecified; E11.9 Type 2 diabetes mellitus without complications; Z79.84 Long term (current) use of oral hypoglycemic drugs; Z79.899 Other long term (current) drug therapy
CPT/HCPCS: 71045; 78452; 80048; 80053; 80306; 81000; 82150; 82550; 82553; 82947 ×2; 83690; 83735; 83874; 83880; 84484; 85025 ×2; 85379; 85610; 85730; 87088; 87636; 93005 ×2; 93017; 93041; 94640 ×2; 99284; A9502; C8929; G0378; G0480; 36415; 80320; 93306

== ENCOUNTER → 2022-07-17 | Outpatient (CLI) | payer MEDICARE, MEDICAID ==
[~2022-07-17] MED LIST changes: +FERR-84 PO; +HOLD METFORMIN - RECEIVED CONTRAST 20 ML VIAL IV SCH; +IOHEXOL 350 MG/ML 100 ML (OMNIPAQUE 350) VIAL IV ONE; +IRON PO; +NS 100 ML (IVPB) BAG IV ONE; +ROPI3TAB4 PO
--- NOTE | 2022-07-17 11:04 | Diagnostic Imaging Report ---
PROCEDURE: CT chest, abdomen, and pelvis with contrast. TECHNIQUE: Multiple contiguous axial images were obtained through the chest, abdomen, and pelvis after the administration of intravenous contrast. Auto Exposure Controls were utilized during the CT exam to meet ALARA standards for radiation dose reduction. INDICATION: Colon carcinoma and cirrhosis. COMPARISON: Correlation is made with the prior CT from 08/29/2021. FINDINGS: CT CHEST: No axillary lymphadenopathy is detected. No definite mediastinal or hilar lymphadenopathy is identified. There are some calcified lymph nodes in the right hilum. No pericardial or pleural fluid is detected. Calcified granulomas are again noted. No noncalcified pulmonary masses or infiltrates are seen. CT ABDOMEN AND PELVIS: The liver again demonstrates a nodular contour, consistent with cirrhosis. There is an area of low attenuation and heterogeneity in the left lobe of the liver which was not definitely seen on prior imaging. An infiltrative type neoplasm in the left lobe cannot be entirely excluded. The right lobe is unremarkable. The right portal vein appears patent. There is poor flow and opacification in the left portal system which could be thrombosed. There is a large stone in the gallbladder. The pancreas and spleen are unremarkable apart from multiple calcified granulomas throughout the spleen. No adrenal mass is detected. The kidneys are unremarkable. The aorta is calcified but nonaneurysmal. The bowel loops appear to be nonobstructed. No definite abdominal or pelvic lymphadenopathy is seen. The bladder and prostate are unremarkable. There is a fat-containing right inguinal hernia. There is no ascites. The bony structures are nonacute. IMPRESSION: 1. No evidence of thoracic, abdominal, or pelvic lymphadenopathy or metastatic disease. 2. Cirrhotic morphology to the liver. There has been development of an area of heterogeneous low attenuation in the left lobe of the liver as well as findings concerning for left portal system thrombosis. Features are concerning for an infiltrative-type neoplasm such as HCC. Liver MRI would be recommended for further evaluation. No other significant abnormality is seen apart from cholelithiasis. Dictated by: Dictated on workstation # [id number]
== END ==
LOC: RAD 08:49
PROVIDERS: ATTEND Internal Medicine Hematology & Oncology
DX: K74.69 Other cirrhosis of liver (principal); K76.89 Other specified diseases of liver; C18.9 Malignant neoplasm of colon, unspecified
CPT/HCPCS: 71260; 74177

== ENCOUNTER 2022-07-21 10:31 | Outpatient (RCR) | payer MEDICARE, MEDICAID ==
[2022-07-10 14:30] LABS: BASOPHILS # (AUTO) 0.2 10^3/uL (0.0-0.1); BASOPHILS % (AUTO) 2 % (0-10); EOSINOPHILS # (AUTO) 0.4 10^3/uL (0.0-0.3); EOSINOPHILS % (AUTO) 6 % (0-10); HEMATOCRIT 48 % (40-54); HEMOGLOBIN 16.1 g/dL (13.3-17.7); LYMPHOCYTES # (AUTO) 1.5 10^3/uL (1.0-4.0); LYMPHOCYTES % (AUTO) 24 % (12-44); MEAN CORPUSCULAR HEMOGLOBIN 32 pg (25-34); MEAN CORPUSCULAR HGB CONC 34 g/dL (32-36); MEAN CORPUSCULAR VOLUME 96 fL (80-99); MEAN PLATELET VOLUME 10.9 fL (9.0-12.2); MONOCYTES # (AUTO) 0.6 10^3/uL (0.0-1.0); MONOCYTES % (AUTO) 9 % (0-12); NEUTROPHILS # (AUTO) 3.7 10^3/uL (1.8-7.8); NEUTROPHILS % (AUTO) 59 % (42-75); PLATELET COUNT 297 10^3/uL (130-400); WHITE BLOOD COUNT 6.4 10^3/uL (4.3-11.0)
[2022-07-10 14:58] LABS: ALBUMIN 3.9 GM/DL (3.2-4.5); BILIRUBIN,TOTAL 0.5 MG/DL (0.1-1.0); CALCIUM 9.7 MG/DL (8.5-10.1); CREATININE SERUM 0.89 MG/DL (0.60-1.30); POTASSIUM 4.7 MMOL/L (3.6-5.0)
[~2022-07-21 10:31] MED LIST changes: -HOLD METFORMIN - RECEIVED CONTRAST 20 ML VIAL IV SCH; -IOHEXOL 350 MG/ML 100 ML (OMNIPAQUE 350) VIAL IV ONE; -NS 100 ML (IVPB) BAG IV ONE
== END 2022-07-25 | disposition home or self-care (01) ==
LOC: ONC 10:31
PROVIDERS: ATTEND Internal Medicine Hematology & Oncology
DX: C18.7 Malignant neoplasm of sigmoid colon (principal); B18.2 Chronic viral hepatitis C; K76.0 Fatty (change of) liver, not elsewhere classified; K70.30 Alcoholic cirrhosis of liver without ascites; D50.9 Iron deficiency anemia, unspecified; I11.0 Hypertensive heart disease with heart failure; I50.22 Chronic systolic (congestive) heart failure; I25.10 Atherosclerotic heart disease of native coronary artery without angina pectoris; E78.2 Mixed hyperlipidemia; E66.9 Obesity, unspecified; Z90.49 Acquired absence of other specified parts of digestive tract
CPT/HCPCS: 36415; 80053; 82728; 83540; 83550; 85025; 99213

== ENCOUNTER → 2022-07-25 | Outpatient (CLI) | payer MEDICARE, MEDICAID ==
[~2022-07-25] MED LIST changes: +GADOTERATE 0.5 MMOL/ML (CLARISCAN) 20 ML VIAL IV ONE
--- NOTE | 2022-07-25 14:06 | Diagnostic Imaging Report ---
PROCEDURE: MR imaging abdomen with and without contrast. TECHNIQUE: Multiplanar, multisequence MR imaging of the abdomen was performed with and without contrast. INDICATION: Colorectal cancer. New left hepatic lobe mass. COMPARISON: Multiple CT abdomen and pelvis from 07/17/2022 through 03/04/2019. FINDINGS: MRI again shows abnormal appearance of the entire left hepatic lobe. There is restricted diffusion to the left hepatic lobe which has abnormal mild T2 hyperintensity. Heterogeneous enhancement is present on delayed phase imaging. Extensive portal venous thrombus is present throughout the entire left hepatic lobe. The right and main portal veins remain patent. No mass within the right hepatic lobe. The liver does have a nodular configuration suggestive of cirrhosis. Spleen is normal in size measuring 11 cm and has no focal mass. Pancreas and kidneys are normal in appearance. No adrenal mass. Trace ascites is present. A 1.3 x 1.0 cm gastric colic lymph node is present. There are a few other borderline enlarged celiac axis lymph nodes. IMPRESSION: 1. Entire left hepatic lobe is very abnormal in appearance likely due to combination of a large volume of invasive/infiltrative tumor with associated thrombosis of the left portal vein. CT-guided biopsy in the left hepatic lobe could be performed for tissue diagnosis. 2. There are a few mildly enlarged celiac axis lymph nodes that are likely regional metastases. 3. Right hepatic lobe has a cirrhotic morphology without focal mass. Dictated by: Dictated on workstation # [id number]
== END ==
LOC: RAD 10:10
PROVIDERS: ATTEND Internal Medicine Hematology & Oncology
DX: C19 Malignant neoplasm of rectosigmoid junction (principal); K76.9 Liver disease, unspecified
CPT/HCPCS: 74183

== ENCOUNTER 2022-07-26 05:59 | Outpatient (CLI) | payer MEDICARE, MEDICAID ==
[~2022-07-26] VITALS: Ht 167.6 cm; Wt 83.6 kg
[~2022-07-26 05:59] MED LIST changes: -GADOTERATE 0.5 MMOL/ML (CLARISCAN) 20 ML VIAL IV ONE
== END 2022-07-28 11:41 | disposition home or self-care (01) ==
LOC: PREOP 05:59
PROVIDERS: ATTEND Surgery
DX: Z01.818 Encounter for other preprocedural examination (principal)

== ENCOUNTER 2022-08-01 11:20 | Outpatient (RCR) | payer MEDICARE, MEDICAID | END 2022-08-22 | disposition home or self-care (01) | LOC: ONC 11:20 | PROVIDERS: ATTEND Internal Medicine Hematology & Oncology | DX: K76.9 Liver disease, unspecified (principal); I11.0 Hypertensive heart disease with heart failure; I50.22 Chronic systolic (congestive) heart failure; I25.10 Atherosclerotic heart disease of native coronary artery without angina pectoris; E78.2 Mixed hyperlipidemia; E66.9 Obesity, unspecified; Z90.49 Acquired absence of other specified parts of digestive tract | CPT/HCPCS: 99213 ==

== ENCOUNTER 2022-10-22 11:37 | Emergency (ER) | payer MEDICARE, MEDICAID ==
[~2022-10-22] VITALS: Ht 168 cm; Wt 72.6 kg
[~2022-10-22 11:37] MED LIST changes: +ENAL-66 PO; -ENLP5T PO
--- NOTE | 2022-10-22 12:12 | ED Back Pain ---
General Chief Complaint: Back Problems Stated Complaint: FALL - BACK PAIN Nursing Triage Note: PT AMB TO ED BY POV WITH WITH C/O BACK PAIN. REPORTS PT HAS STAGE 4 LIVER CANCER AND IS MISERABLE. PT REPORTS HE FELL TWO WEEKS AGO AND INJURED HIS BACK. (MARIBEL PAULSON) History of Present Illness Date Seen by Provider: Oct 22, 2022 Time Seen by Provider: 11:45 Initial Comments 67 year old male with Stage 4 liver cancer presents for back pain and muscle spasms. Reports multiple falls over the last 2 weeks, has not been evaluated for injuries to his back. No known metastasis to spine. Denies leg pain, urinary or bowel incontinence or retention. He has multiple medications at home to help with pain including liquid morphine, hydrocodone and alprazolam. reports relief of symptoms after taking the Morphine but he dislikes taking them due to making him lethargic. No LOC with falls. One incident 7-10 days ago, he hit his head on toilet paper roll. He does not take anticoagulants. Location: Lumbar Spine, Paraspinous Muscles, T-Spine Timing/Duration: Getting Worse Severity: Moderate Pain/Injury Location: Back (T and L Spine) Method of Injury: Fall Associated Symptoms: muscle spasms, weakness; No numbness in legs/feet, No tingling in legs/feet, No sensory/motor loss; lower back pain; No loss of bladder control, No loss of bowel control (MARIBEL PAULSON) Allergies and Home Medications Allergies Coded Allergies: No Known Drug Allergies (Unverified , 07/28/22) Patient Home Medication List Home Medication List Reviewed: Yes (MARIBEL PAULSON) Amlodipine Besylate (Amlodipine Besylate) 10 Mg Tablet, 10 MG PO DAILY, (Reported) Entered as Reported by: LUIS URBINA on 10/20/21 0841 Budesonide/Formoterol Fumarate (Symbicort 160-4.5 Mcg Inhaler) 10.2 Gm Hfa.aer.ad, 2 PUFF INH BID, (Reported) Entered as Reported by: JESSE WHEELER on 06/04/17 0742 Cyclobenzaprine HCl (Cyclobenzaprine HCl) 10 Mg Tablet, 10 MG PO Q8H PRN for SPASMS Prescribed by: MARIBEL PAULSON on 10/22/22 1318 Metformin HCl (Metformin HCl) 500 Mg Tablet, 500 MG PO BID, (Reported) Entered as Reported by: LUIS URBINA on 10/20/21 0841 Pantoprazole Sodium (Pantoprazole Sodium) 40 Mg Tablet.dr, 40 MG PO DAILY Prescribed by: SHERRI RIVERA on 06/12/22 1235 Ropinirole HCl (Ropinirole HCl) 3 Mg Tablet, 3-6 MG PO HS, (Reported) Entered as Reported by: STONEY WINTERS on 06/12/22 1228 Sitagliptin Phosphate (Januvia) 100 Mg Tablet, 100 MG PO DAILY, (Reported) Entered as Reported by: LUIS URBINA on 10/20/21 0841 Review of Systems Constitutional: no symptoms reported, see HPI Gastrointestinal: no symptoms reported, see HPI Genitourinary: no symptoms reported, see HPI Musculoskeletal: see HPI, back pain, muscle pain; No neck pain Skin: see HPI; No change in color, No pruritus, No rash (MARIBEL PAULSON) All Other Systems Reviewed Negative Unless Noted: Yes (MARIBEL PAULSON) Past Lujfbnh-Dvinvr-Bisyzz Hx Patient Social History Tobacco Use?: No Smoking Status: Former Smoker Use of E-Cig and/or Vaping dev: No Substance use?: No Alcohol Use?: No Pt feels they are or have been: No (MARIBEL PAULSON) Immunizations Up To Date Tetanus Booster (TDap): Unknown Influenza Vaccine Up-to-Date: Yes; Up-to-Date First/Initial COVID19 Vaccinat: MAR, 2021 Second COVID19 Vaccination [place]: MAR, 2021 Third COVID19 Vaccination Date: MAR, 2021 (MARIBEL PAULSON) Seasonal Allergies Seasonal Allergies: No (MARIBEL PAULSON) Past Medical History Surgery/Hospitalization HX: COLON AND LIVER CA, HTN, CARDIAC STENTS 2012 Surgeries: Yes Bowel Surgery, Cardiac, Coronary Stent Respiratory: Yes COPD Currently Using CPAP: No Cardiac: Yes (STENT) Coronary Artery Disease, Heart Attack Neurological: No Neuropathy Reproductive Disorders: No Genitourinary: No Gastrointestinal: Yes (COLON CANCER) Chronic Constipation Musculoskeletal: Yes (CHRONIC LEG PAIN ) Endocrine: Yes Diabetes, Non-Insulin dep HEENT: No Cancer: Yes Colon Did You Recieve Any Treatments: Yes What Type of Treatment Did You: Surgical Intervention Psychosocial: No Integumentary: No Blood Disorders: No Adverse Reaction/Blood Tranf: No (MARIBEL PAULSON) Family Medical History Reviewed Nursing Family Hx (MARIBEL PAULSON) Heart Disease, Hypertension (MARIBEL PAULSON) Physical Exam Vital Signs Vital Signs - First Documented 10/22/22 11:45 Temp 36.1 Pulse 107 Resp 18 B/P (MAP) 143/61 (88) Pulse Ox 93 O2 Delivery Room Air (BOBBY MCKEON MD) Vital Signs Capillary Refill : Less Than 3 Seconds (MARIBEL PAULSON) Height, Weight, BMI Height: 5'6.00" Weight: 176lbs. 0.0oz. 79.441982hr; 25.00 BMI Method:Stated General Appearance: No Apparent Distress, WD/WN, Cachetic HEENT: Normal ENT Inspection, Pharynx Normal, Moist Mucous Membranes Neck: Full Range of Motion, Normal Inspection, Non Tender, Supple Cardiovascular: Regular Rate, Rhythm, No Murmur, Normal Peripheral Pulses Respiratory: Chest Non Tender, Lungs Clear, Normal Breath Sounds Gastrointestinal: Normal Bowel Sounds, Non Tender, Soft Back: Normal Inspection, Decreased Range of Motion, Muscle Spasm, Vertebral Tenderness (lower Thoracic and upper Lumbar. Small superficial abrasion, left lower back. reports from fall on carpet. ) Extremity: Normal Capillary Refill, Normal Inspection, Normal Range of Motion Neurologic/Psychiatric: Alert, Oriented x3, No Motor/Sensory Deficits, Normal Mood/Affect Skin: Normal Color, Warm/Dry; No Jaundice (MARIBEL PAULSON) Progress/Results/Core Measures Results/Orders Vital Signs/I&O 10/22/22 10/22/22 11:45 13:25 Temp 36.1 Pulse 107 61 Resp 18 B/P (MAP) 143/61 (88) 144/71 Pulse Ox 93 93 O2 Delivery Room Air Room Air (BOBBY MCKEON MD) Blood Pressure Mean: 88 Progress Progress Note : Time: 11:45 Progress Note Spoke with patient and , discussed options as he is on hospice. He would like medicine to help with the muscle spasms. Encouraged that he use the medications he has at home we will give Norflex IM here. discussed risks/benefits of CT T and L spine, to determine if any injuries to spine or lesions. 1240 CT results reviewed with patient and spouse. Pain improved after the muscle relaxant. Will discharge to home with a prescription. Discharge instr uctions and return precautions reviewed. (MARIBEL PAULSON) Diagnostic Imaging Diagonstic Imaging: CT Plain Films/CT/US/NM/MRI: other (T and L spine) Comments NAME: [facility] REC#: [id number] PT STATUS: REG ER : 1955 PHYSICIAN: MARIBEL PAULSON ADMIT DATE: 10/22/22/ER Draft Date of Exam:10/22/22 CT THORACIC/LUMBAR SPINE WO PROCEDURE: CT thoracic and lumbar spine without contrast. TECHNIQUE: Multiple contiguous axial images were obtained through the thoracic and lumbar spine without the use of intravenous contrast. Sagittal and coronal reformations were then performed. All CT scans use one or more of the following dose optimizing techniques: automated exposure control, MA and/or KvP adjustment based on a patient size and exam type, or iterative reconstruction. INDICATION: Back pain. Trauma. Multiple falls. Stage IV liver cancer. COMPARISON: CT chest, abdomen, and pelvis with IV contrast 07/17/2022. FINDINGS: Normal alignment. Vertebral body heights are preserved. No fractures. Mild scattered degenerative endplate changes in the thoracic spine. No CT evidence of high-grade spinal canal stenosis. The visualized pelvis is intact. Calcified granulomas in the left lung. No acute findings in the visualized paravertebral soft tissues. IMPRESSION: No acute CT findings in the thoracic or lumbar spine. Dictated on workstation # [id number] Dict: 10/22/22 1247 Trans: 10/22/22 1257 [id number] Interpreted by: JAMESON BORJA MD Electronically signed by: Reviewed: Reviewed by Me (MARIBEL PAULSON) Departure Impression Primary Impression: Liver cancer Qualified Codes: C22.9 - Malignant neoplasm of liver, not specified as primary or secondary Additional Impressions: Back pain Qualified Codes: M54.50 - Low back pain, unspecified Fall Qualified Codes: W19.XXXA - Unspecified fall, initial encounter Disposition: HOME, SELF-CARE Condition: Stable Departure-Patient Inst. Decision time for Depature: 12:30 (MARIBEL PAULSON) Referrals: NO,LOCAL PHYSICIAN (PCP/Family) Primary Care Physician Patient Instructions: Muscle Spasms (DC) Add. Discharge Instructions: Use home medications as prescribed and needed for pain. You can try the Flexeril 1 tablet every 8 hours as needed for muscle spasms. Continue to work with your home hospice nurses for adjustments in medications. Follow-up with your oncologist as needed. Use walker or wheelchair to help prevent falls. Return to the emergency department for new, urgent healthcare needs. All discharge instructions reviewed with patient and/or family. Voiced understanding. Scripts Cyclobenzaprine HCl (Cyclobenzaprine HCl) 10 Mg Tablet 10 MG PO Q8H PRN for SPASMS, #30 TAB 0 Refills Prov: MARIBEL PAULSON 10/22/22 ATTENDING PHYSICIAN NOTE: I was physically present as attending physician in the emergency department during the care of this patient, but I was not directly involved in the decision making or delivery of care for this patient. (BOBBY MCKEON MD) MARIBEL PAULSON Oct 22, 2022 12:12 BOBBY MCKEON MD Oct 22, 2022 18:31
[2022-10-22] MEDS ORDERED: ORPHENADRINE 60 MG/2 ML (NORFLEX) AMP (ED ONLY) IM STA (12:20)
--- NOTE | 2022-10-22 12:59 | Diagnostic Imaging Report ---
PROCEDURE: CT thoracic and lumbar spine without contrast. TECHNIQUE: Multiple contiguous axial images were obtained through the thoracic and lumbar spine without the use of intravenous contrast. Sagittal and coronal reformations were then performed. All CT scans use one or more of the following dose optimizing techniques: automated exposure control, MA and/or KvP adjustment based on a patient size and exam type, or iterative reconstruction. INDICATION: Back pain. Trauma. Multiple falls. Stage IV liver cancer. COMPARISON: CT chest, abdomen, and pelvis with IV contrast 07/17/2022. FINDINGS: Normal alignment. Vertebral body heights are preserved. No fractures. Mild scattered degenerative endplate changes in the thoracic spine. No CT evidence of high-grade spinal canal stenosis. The visualized pelvis is intact. Calcified granulomas in the left lung. No acute findings in the visualized paravertebral soft tissues. IMPRESSION: No acute CT findings in the thoracic or lumbar spine. Dictated by: Dictated on workstation # [id number]
[2022-10-22] MEDS ORDERED: CYCL10TA25 PO (13:18)
[2022-10-22 13:25] VITALS: BP 144/71
== END 2022-10-22 13:25 | disposition home or self-care (01) ==
LOC: EDUNIT# 11:37 → ER 11:38
DX: S30.810A Abrasion of lower back and pelvis, initial encounter (principal); C22.9 Malignant neoplasm of liver, not specified as primary or secondary; M54.6 Pain in thoracic spine; Z87.891 Personal history of nicotine dependence; W18.30XA Fall on same level, unspecified, initial encounter
CPT/HCPCS: 72128; 72131